=== PATIENT | female | born 1950 | race Caucasian/White ===

== ENCOUNTER 2020-04-05 09:20 | Outpatient (REF) | payer MEDICARE, SELFPAY ==
--- NOTE | 2020-04-05 09:27 | XR_ITS ---
EXAMINATION: XR HAND/WRIST, LEFT CLINICAL INFORMATION: Pain COMPARISON: 01/25/2015 TECHNIQUE: 3 views of the left hand/wrist FINDINGS: There is a ring on the fourth digit. No fracture or dislocation. Mild degenerative changes at the wrist with osteophyte formation at the triscaphe joint and first carpometacarpal joint. The carpal rows are well aligned. The digits are well aligned. Small osteophytes at the fifth digit distal interphalangeal joint. The soft tissues are unremarkable. XR/XR hand wrist LT IMPRESSION: Mild degenerative changes of the wrist and at the fifth distal interphalangeal joint. No acute abnormality.
== END 2020-04-05 09:21 | disposition home or self-care (01) ==
LOC: HO.HMGCX 09:20
PROVIDERS: PCP Internal Medicine; Visit Provider Hospitalist
DX: M25.532 Pain in left wrist (principal)
CPT/HCPCS: 73110; 73130

== ENCOUNTER 2020-04-08 09:11 | Outpatient (REF) | payer MEDICARE, SELFPAY ==
--- NOTE | 2020-04-08 09:11 | XR_ITS ---
EXAMINATION: XR WRIST, LEFT CLINICAL INFORMATION: Pain in left wrist COMPARISON: 01/25/2015 TECHNIQUE: PA, lateral, and oblique views of the left wrist. FINDINGS: The bones are osteopenic. There is no fracture or dislocation. The carpal rows are well aligned. Mild degenerative changes at the triscaphe joint and first carpometacarpal joint with osteophyte formation. Mild soft tissue swelling. XR/XR wrist LT min 3V IMPRESSION: Mild arthritic changes at the radial aspect of the wrist.
== END 2020-04-08 09:12 | disposition home or self-care (01) ==
LOC: HO.HOSX 09:11
PROVIDERS: Visit Provider Orthopaedic Surgery
DX: M25.532 Pain in left wrist (principal); S52.572A Other intraarticular fracture of lower end of left radius, initial encounter for closed fracture; S60.052A Contusion of left little finger without damage to nail, initial encounter; W18.30XA Fall on same level, unspecified, initial encounter; Y93.9 Activity, unspecified; Y92.9 Unspecified place or not applicable; Y99.8 Other external cause status; E78.00 Pure hypercholesterolemia, unspecified
CPT/HCPCS: 25600; 73110; 99202

== ENCOUNTER 2020-04-29 09:34 | Outpatient (REF) | payer MEDICARE, BC, SELFPAY ==
--- NOTE | 2020-04-29 09:35 | XR_ITS ---
EXAMINATION: LEFT FINGER AND LEFT WRIST CLINICAL INFORMATION: Pain left hand COMPARISON: None TECHNIQUE: 3 views left fingers and 3 views left wrist. FINDINGS: LEFT WRIST: There is no visible acute fracture, dislocation or subluxation. The soft tissues are unremarkable. Incidental finding of a subtle lucency along the distal radius likely nutrient foramina. LEFT FIFTH FINGER: There is loss of PIP and DIP joint space with periarticular spurring. There is mild flexion deformity DIP joint. No fracture or dislocation seen.. There is no visible acute. 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 No acute fracture or dislocation. Unremarkable left wrist exam except for a small lucency along the distal radius, ? Nutrient foramina or artifact
--- NOTE | 2020-04-29 11:04 | XR_ITS ---
EXAMINATION: LEFT FINGER AND LEFT WRIST CLINICAL INFORMATION: Pain left hand COMPARISON: None TECHNIQUE: 3 views left fingers and 3 views left wrist. FINDINGS: LEFT WRIST: There is no visible acute fracture, dislocation or subluxation. The soft tissues are unremarkable. Incidental finding of a subtle lucency along the distal radius likely nutrient foramina. LEFT FIFTH FINGER: There is loss of PIP and DIP joint space with periarticular spurring. There is mild flexion deformity DIP joint. No fracture or dislocation seen.. There is no visible acute. XR/XR finger LT min 2V IMPRESSION: Degenerative arthritic changes PIP and DIP joint left fifth digit with mild flexion deformity PIP joint. No acute fracture or dislocation. Unremarkable left wrist exam except for a small lucency along the distal radius, ? Nutrient foramina or artifact
== END 2020-04-29 09:35 | disposition home or self-care (01) ==
LOC: HO.HOSX 09:34
PROVIDERS: Visit Provider Orthopaedic Surgery
DX: S52.502A Unspecified fracture of the lower end of left radius, initial encounter for closed fracture (principal); M79.642 Pain in left hand
CPT/HCPCS: 73110; 73140; 99212

== ENCOUNTER 2020-04-29 13:18 | Outpatient (REF) | payer MEDICARE, BC, SELFPAY ==
[2020-04-29 16:27] LABS: MANUAL DIFF FLAG NO
[2020-04-29 16:32] LABS: Basophils Percent Auto 0.4 % (0-2); Eosinophils Absolute Auto 0.1 X10*3/uL (0.0-0.4); Eosinophils Percent Auto 1.7 % (0-4); Imm Gran Abs Auto 0.02 X10*3/uL (0.00-0.03); Imm Gran Pct Auto 0.3 % (0.0-0.4); Lymphocytes Absolute Auto 2.6 X10*3/uL (1.2-4.9); Lymphocytes Percent Auto 35.2 % (20-40); Mean Corpuscular HGB Conc 32.6 g/dl (31.0-35.0); Mean Corpuscular Hemoglobin 29.8 pg (27.0-33.0); Mean Corpuscular Volume 91.5 fL (80-98); Mean Platelet Volume 9.7 fL (9.4-12.3); Monocytes Absolute Auto 0.5 X10*3/uL (0.1-1.2); Monocytes Percent Auto 6.5 % (2-11); Neutrophils Absolute Auto 4.2 X10*3/uL (2.0-8.3); Neutrophils Percent Auto 55.9 % (45-73); Platelet Count 194 X10*3/uL (160-400); Red Cell Distribution Width 12.4 % (11.0-16.0); White Blood Count 7.5 X10*3/uL (4.8-10.8)
[2020-04-29 16:52] LABS: Alanine Aminotransferase 14 U/L (0-31); Albumin Level 4.4 g/dL (3.5-5.0); Alkaline Phosphatase 93 U/L (39-117); Anion Gap 14 (12-20); Aspartate Amino Transferase 15 U/L (5-31); Bilirubin Total 0.5 mg/dL (0.0-1.0); Blood Urea Nitrogen 15 mg/dL (9-16); Calcium 9.2 mg/dL (8.4-10.2); Carbon Dioxide 27 mmol/L (22-29); Chloride 101 mmol/L (96-108); Cholesterol 194 mg/dL; Estimated Glomerular Filt Rate > 60; Glucose Fasting 92 mg/dL (60-99); HDL Cholesterol 62 mg/dL; LDL Cholesterol Calculated 84 mg/dl; Potassium 4.4 mmol/l (3.3-5.1); Sodium 138 mmol/L (135-145); Total Protein 7.2 g/dL (6.5-8.0); Triglycerides 240 mg/dL
[2020-04-29 17:15] LABS: T4 Thyroxine 5.8 ug/dL (4.5-12.0); Thyroid Stimulating Hormone 2.33 uIU/mL (0.32-4.0); Vitamin D 25-OH Total 68.1 ng/mL (>30)
[2020-04-29 17:25] LABS: Folate 11.9 ng/mL (> or = 4.0); Vitamin B12 956 pg/mL (200-900)
== END 2020-04-29 13:19 | disposition home or self-care (01) ==
LOC: HO.HMGCLDS 13:18
PROVIDERS: PCP Internal Medicine; Visit Provider Internal Medicine
DX: Z00.00 Encounter for general adult medical examination without abnormal findings (principal); E66.9 Obesity, unspecified; E78.00 Pure hypercholesterolemia, unspecified; J45.909 Unspecified asthma, uncomplicated
CPT/HCPCS: 36415; 80053; 80061; 82306; 82607; 82746; 84436; 84443; 85025

== ENCOUNTER → 2020-06-20 10:38 | Outpatient (BNVA) | payer OTHER, SELFPAY | PROVIDERS: PCP Internal Medicine; Visit Provider Internal Medicine | DX: S67.21XA Crushing injury of right hand, initial encounter (principal); S67.194A Crushing injury of right ring finger, initial encounter; W23.1XXA Caught, crushed, jammed, or pinched between stationary objects, initial encounter | CPT/HCPCS: 73130; 99203 ==

== ENCOUNTER → 2020-06-24 11:02 | Outpatient (BNVA) | payer OTHER, SELFPAY | PROVIDERS: PCP Internal Medicine; Visit Provider Physician Assistant | DX: S67.194D Crushing injury of right ring finger, subsequent encounter (principal); X58.XXXD Exposure to other specified factors, subsequent encounter | CPT/HCPCS: 99213 ==

== ENCOUNTER 2020-07-04 14:34 | Outpatient (REF) | payer MEDICARE, SELFPAY ==
[2020-07-04 16:49] LABS: Alanine Aminotransferase 16 U/L (0-31); Albumin Level 4.4 g/dL (3.5-5.0); Alkaline Phosphatase 82 U/L (39-117); Anion Gap 14 (12-20); Aspartate Amino Transferase 24 U/L (5-31); Bilirubin Total 0.4 mg/dL (0.0-1.0); Blood Urea Nitrogen 20 mg/dL (9-16); Calcium 9.5 mg/dL (8.4-10.2); Carbon Dioxide 29 mmol/L (22-29); Chloride 100 mmol/L (96-108); Cholesterol 166 mg/dL; Estimated Glomerular Filt Rate > 60; Glucose Random 141 mg/dL (60-115); HDL Cholesterol 67 mg/dL; LDL Cholesterol Calculated 54 mg/dl; Potassium 4.1 mmol/L (3.3-5.1); Sodium 139 mmol/L (135-145); Total Protein 7.2 g/dL (6.5-8.0); Triglycerides 229 mg/dL
== END 2020-07-04 14:35 | disposition home or self-care (01) ==
LOC: HO.HMGCLDS 14:34
PROVIDERS: PCP Internal Medicine; Visit Provider Internal Medicine
DX: E78.1 Pure hyperglyceridemia (principal); E78.00 Pure hypercholesterolemia, unspecified
CPT/HCPCS: 36415; 80053; 80061

== ENCOUNTER 2020-07-19 13:27 | Outpatient (REF) | payer MEDICARE, SELFPAY ==
--- NOTE | ~2020-07-19 | XR_ITS ---
EXAMINATION: XR CHEST CLINICAL INFORMATION: Covid 19 COMPARISON: 02/28/2016 TECHNIQUE: 2 views of the chest were obtained. FINDINGS: Normal cardiac and mediastinal silhouette. There is a prominent airspace opacities along the peripheral aspect of the left hemithorax. There is patchy opacities in the right hemithorax, including the peripheral aspect and the right lower lung. Findings are suspicious for infectious or inflammatory process. No effusion, edema or pneumothorax. No acute osseous abnormality. XR/XR chest 2V IMPRESSION: Airspace disease in bilateral hemithoraces, more prominent in the left hemithorax. Findings are suspicious for infectious or inflammatory process, correlating the clinical history of Covid disease.
== END 2020-07-19 13:28 | disposition home or self-care (01) ==
LOC: HO.HMGCX 13:27
PROVIDERS: PCP Internal Medicine; Visit Provider Internal Medicine
DX: U07.1 COVID-19 (principal)
CPT/HCPCS: 71046

== ENCOUNTER 2020-08-02 14:59 | Outpatient (REF) | payer MEDICARE, SELFPAY ==
--- NOTE | ~2020-08-02 | XR_ITS ---
EXAMINATION: XR SINUSES CLINICAL INFORMATION: Nasal congestion. COMPARISON: None TECHNIQUE: 3 views of the sinuses were obtained. FINDINGS: Paranasal sinuses appear clear without air-fluid levels. No fractures are identified. No radiodense foreign bodies. XR/XR sinus <3V IMPRESSION: Unremarkable sinus exam.
== END 2020-08-02 15:00 | disposition home or self-care (01) ==
LOC: HO.HMGCX 14:59
PROVIDERS: PCP Internal Medicine; Visit Provider Internal Medicine
DX: R09.81 Nasal congestion (principal)
CPT/HCPCS: 70210

== ENCOUNTER → 2020-08-29 14:01 | Outpatient (REF) | payer MEDICARE, SELFPAY | LOC: HO.SL 14:01 | PROVIDERS: PCP Internal Medicine; Visit Provider Internal Medicine | DX: G47.10 Hypersomnia, unspecified (principal) | CPT/HCPCS: 95806 ==

== ENCOUNTER 2020-11-16 10:35 | Outpatient (REF) | payer MEDICARE, SELFPAY ==
[2020-11-16 11:19] LABS: MANUAL DIFF FLAG NO
[2020-11-16 11:26] LABS: Basophils Percent Auto 0.5 % (0-2); Eosinophils Absolute Auto 0.1 X10*3/uL (0.0-0.4); Eosinophils Percent Auto 1.8 % (0-4); Hematocrit 42.8 % (37-47); Hemoglobin 14.1 g/dl (12.0-16.0); Imm Gran Abs Auto 0.04 X10*3/uL (0.00-0.03); Imm Gran Pct Auto 0.6 % (0.0-0.4); Lymphocytes Absolute Auto 2.6 X10*3/uL (1.2-4.9); Lymphocytes Percent Auto 39.6 % (20-40); Mean Corpuscular HGB Conc 32.9 g/dl (31.0-35.0); Mean Corpuscular Volume 91.1 fL (80-98); Mean Platelet Volume 9.2 fL (9.4-12.3); Monocytes Absolute Auto 0.5 X10*3/uL (0.1-1.2); Monocytes Percent Auto 7.2 % (2-11); Neutrophils Absolute Auto 3.3 X10*3/uL (2.0-8.3); Neutrophils Percent Auto 50.3 % (45-73); Platelet Count 201 X10*3/uL (160-400); Red Cell Distribution Width 12.3 % (11.0-16.0); White Blood Count 6.5 X10*3/uL (4.8-10.8)
[2020-11-16 11:49] LABS: Alanine Aminotransferase 44 U/L (0-31); Albumin Level 4.4 g/dL (3.5-5.0); Alkaline Phosphatase 73 U/L (39-117); Anion Gap 12 (12-20); Aspartate Amino Transferase 40 U/L (5-31); Bilirubin Total 0.4 mg/dL (0.0-1.0); Blood Urea Nitrogen 23 mg/dL (9-16); Calcium 9.5 mg/dL (8.4-10.2); Carbon Dioxide 29 mmol/L (22-29); Chloride 101 mmol/L (96-108); Cholesterol 163 mg/dL; Estimated Glomerular Filt Rate > 60; Glucose Random 95 mg/dL (60-115); HDL Cholesterol 60 mg/dL; LDL Cholesterol Calculated 76 mg/dl; Potassium 4.5 mmol/L (3.3-5.1); Sodium 137 mmol/L (135-145); Total Protein 7.1 g/dL (6.5-8.0); Triglycerides 139 mg/dL
== END 2020-11-16 10:36 | disposition home or self-care (01) ==
LOC: HO.HMGCLDS 10:35
PROVIDERS: PCP Internal Medicine; Visit Provider Internal Medicine
DX: E78.00 Pure hypercholesterolemia, unspecified (principal)
CPT/HCPCS: 36415; 80053; 80061; 85025

== ENCOUNTER 2021-07-03 10:25 | Outpatient (REF) | payer MEDICARE, SELFPAY ==
[2021-07-03 11:16] LABS: MANUAL DIFF FLAG NO
[2021-07-03 11:20] LABS: Basophils Percent Auto 0.3 % (0-2); Eosinophils Absolute Auto 0.1 X10*3/uL (0.0-0.4); Eosinophils Percent Auto 1.7 % (0-4); Hematocrit 43.4 % (37.0-47.0); Hemoglobin 14.2 g/dl (12.0-16.0); Imm Gran Abs Auto 0.02 X10*3/uL (0.00-0.03); Imm Gran Pct Auto 0.3 % (0.0-0.4); Lymphocytes Absolute Auto 2.1 X10*3/uL (1.2-4.9); Lymphocytes Percent Auto 32.8 % (20-40); Mean Corpuscular HGB Conc 32.7 g/dl (31.0-35.0); Mean Corpuscular Volume 91.6 fL (80.0-98.0); Mean Platelet Volume 9.5 fL (9.4-12.3); Monocytes Absolute Auto 0.5 X10*3/uL (0.1-1.2); Monocytes Percent Auto 7.8 % (2-11); Neutrophils Absolute Auto 3.7 x10*3/uL (2.0-8.3); Neutrophils Percent Auto 57.1 % (45-73); Platelet Count 211 X10*3/uL (160-400); Red Blood Count 4.74 X10*6/uL (4.20-5.50); Red Cell Distribution Width 12.6 % (11.0-16.0); White Blood Count 6.4 X10*3/uL (4.8-10.8)
[2021-07-03 11:44] LABS: Alanine Aminotransferase 33 U/L (0-31); Albumin Level 4.3 g/dL (3.5-5.0); Alkaline Phosphatase 75 U/L (39-117); Anion Gap 12 (12-20); Aspartate Amino Transferase 31 U/L (5-31); Bilirubin Direct 0.3 mg/dL (0.0-0.5); Bilirubin Total 0.6 mg/dL (0.0-1.0); Blood Urea Nitrogen 17 mg/dL (9-16); Calcium 9.6 mg/dL (8.4-10.2); Carbon Dioxide 28 mmol/L (22-29); Chloride 102 mmol/L (96-108); Cholesterol 164 mg/dL; Estimated Glomerular Filt Rate > 60; Glucose Fasting 103 mg/dL (60-99); HDL Cholesterol 62 mg/dL; LDL Cholesterol Calculated 78 mg/dl; Potassium 4.4 mmol/L (3.3-5.1); Sodium 138 mmol/L (135-145); Total Protein 7.1 g/dL (6.5-8.0); Triglycerides 120 mg/dL
== END 2021-07-03 10:26 | disposition home or self-care (01) ==
LOC: HO.HMGCLDS 10:25
PROVIDERS: Visit Provider Nurse Practitioner Family
DX: E66.9 Obesity, unspecified (principal); E78.00 Pure hypercholesterolemia, unspecified; E78.1 Pure hyperglyceridemia; R79.89 Other specified abnormal findings of blood chemistry; I10 Essential (primary) hypertension
CPT/HCPCS: 36415; 80053; 80061; 80076; 82248; 85025

== ENCOUNTER 2021-10-02 10:53 | Outpatient (REF) | payer MEDICARE, SELFPAY ==
[2021-10-02 14:15] LABS: Alanine Aminotransferase 23 U/L (0-31); Albumin Level 4.3 g/dL (3.5-5.0); Alkaline Phosphatase 101 U/L (39-117); Anion Gap 14 (12-20); Aspartate Amino Transferase 20 U/L (5-31); Bilirubin Total 0.6 mg/dL (0.0-1.0); Blood Urea Nitrogen 17 mg/dL (9-16); Calcium 9.9 mg/dL (8.4-10.2); Carbon Dioxide 29 mmol/L (22-29); Chloride 101 mmol/L (96-108); Cholesterol 187 mg/dL; Estimated Glomerular Filt Rate > 60; Glucose Fasting 100 mg/dL (60-99); HDL Cholesterol 64 mg/dL; LDL Cholesterol Calculated 76 mg/dl; Potassium 4.8 mmol/L (3.3-5.1); Sodium 139 mmol/L (135-145); Total Protein 7.4 g/dL (6.5-8.0); Triglycerides 237 mg/dL
[2021-10-02 14:27] LABS: Estimated Average Glucose 128 mg/dL; Hemoglobin A1c % 6.1 %
== END 2021-10-02 10:54 | disposition home or self-care (01) ==
LOC: HO.HMGCLDS 10:53
PROVIDERS: PCP Internal Medicine; Visit Provider Nurse Practitioner Family
DX: E66.9 Obesity, unspecified (principal); E78.00 Pure hypercholesterolemia, unspecified; E78.1 Pure hyperglyceridemia; R79.89 Other specified abnormal findings of blood chemistry
CPT/HCPCS: 36415; 80053; 80061; 82947; 83036

== ENCOUNTER 2022-04-10 08:24 | Outpatient (REF) | payer MEDICARE, SELFPAY ==
--- NOTE | ~2022-04-10 | MM_ITS ---
EXAMINATION: BONE DENSITOMETRY CLINICAL INDICATION: Age-related osteoporosis without current pathological fracture. COMPARISON: Baseline BD dated 02/08/2020. TECHNIQUE: Using a [employer] DXA System (software version: 13.1) manufactured by [employer], dual-energy x-ray absorptiometry was performed of the lumbar spine and left hip. The images are of good technical quality. Summary results are attached. FINDINGS: AP SPINE L1-L4: Current: BMD 0.947 g/cm2, Z-score -0.8, T-score -1.9, osteopenia, 1.3% decrease from baseline (<5% change is not significant). Baseline: BMD 0.959 g/cm2. LEFT FEMUR, NECK: Current: BMD 0.822 g/cm2, Z-score -0.2, T-score -1.6, osteopenia. Baseline: BMD 0.825 g/cm2. LEFT FEMUR, TOTAL: Current: BMD 0.875 g/cm2, Z-score 0.1, T-score -1.1, osteopenia, 3.1% decrease from baseline (<5% change is not significant). Baseline: BMD 0.903 g/cm2. IDENTIFIED RISK FACTORS: Menopause, bilateral oophorectomy, history of fracture (adult). HISTORY OF FRACTURE: Wrist. MEDICATIONS: Vitamin D. MM/XR DEXA axial skeleton IMPRESSION: 1. DIAGNOSIS: Osteopenia based on the lowest T-score value of -1.9 in the lumbar spine applying World Health Organization criteria. 2. 10-YEAR FRACTURE RISK PREDICTION, FRAX: Major osteoporotic fracture (clinical spine, forearm, hip or shoulder) 15.7%. Hip fracture 2.3%. 3. Treatment Recommendations: NOF guidelines recommend consideration for treatment in postmenopausal women and men age 50 and older presenting with the following: -A hip or vertebral (clinical or morphometric) fracture. -T-score less than or equal to -2.5 at the femoral neck or spine after appropriate evaluation to exclude secondary causes. -Low bone mass at the hip or spine and a 10-year fracture probability by FRAX of greater than or equal to 3% for hip fracture or greater than or equal to 20% for major osteoporotic fracture based on the [place] adapted WHO algorithm. 4. Other Recommendations: All treatment decisions require clinical judgment and consideration of individual patient factors, including patient preferences, comorbidities, previous drug use, risk factors not captured in the FRAX model (e.g. frailty, falls, vitamin D deficiency, increased bone turnover, interval significant decline in bone density) and possible under or overestimation of fracture risk by FRAX. Additional medical evaluation for secondary cause of low bone mineral density may be appropriate. FUTURE SCAN RECOMMENDATION: People with diagnosed cases of osteoporosis or at high risk for fracture should have regular bone mineral density tests. For patients eligible for Medicare, routine testing is allowed once every 2 years. The testing frequency can be increased to one year for patients who have rapidly progressing disease, those who are receiving or discontinuing medical therapy to restore bone mass, or have additional risk factors.
--- NOTE | ~2022-04-10 | XR_ITS ---
EXAMINATION: XR hip RT min 2V CLINICAL INFORMATION: Reason for Exam M25.551 - Pain in right hip COMPARISON: None TECHNIQUE: Two views of the hip. FINDINGS: No acute fracture or dislocation. Mild degenerative changes of the hip with collar osteophytes. Surgical clips overlie the hip. XR/XR hip RT min 2V IMPRESSION: Mild degenerative changes of the hip.
[2022-04-10 11:36] LABS: MANUAL DIFF FLAG NO
[2022-04-10 11:47] LABS: Basophils Percent Auto 0.4 % (0-2); Eosinophils Absolute Auto 0.1 X10*3/uL (0.0-0.4); Eosinophils Percent Auto 1.6 % (0-4); Hematocrit 44.3 % (37.0-47.0); Hemoglobin 14.5 g/dl (12.0-16.0); Imm Gran Abs Auto 0.01 X10*3/uL (0.00-0.03); Imm Gran Pct Auto 0.2 % (0.0-0.4); Lymphocytes Absolute Auto 2.1 X10*3/uL (1.2-4.9); Mean Corpuscular HGB Conc 32.7 g/dl (31.0-35.0); Mean Corpuscular Hemoglobin 30.2 pg (27.0-33.0); Mean Corpuscular Volume 92.3 fL (80.0-98.0); Mean Platelet Volume 9.5 fL (9.4-12.3); Monocytes Absolute Auto 0.5 X10*3/uL (0.1-1.2); Monocytes Percent Auto 8.7 % (2-11); Neutrophils Absolute Auto 2.9 x10*3/uL (2.0-8.3); Neutrophils Percent Auto 52.1 % (45-73); Platelet Count 170 X10*3/uL (160-400); Red Cell Distribution Width 12.6 % (11.0-16.0); White Blood Count 5.5 X10*3/uL (4.8-10.8)
[2022-04-10 11:51] LABS: Appearance Urine Clear; Color Urine Yellow; Glucose Urine UA Negative (Negative); Leukocyte Esterase Urine Negative (Negative); Nitrite Urine Negative (Negative); Urine Blood Negative (Negative); Urine Ketones Negative (Negative); Urine Protein Negative (Neg-Trace)
[2022-04-10 11:55] LABS: Bacteria Urine None Seen (None Seen); Hyaline Casts Urine 0-2 /LPF (0-2); RBC Urine 0-2 /HPF (0-2); Squamous Epithelial Cell Urine 0-2 /HPF (0-2); WBC Urine 0-5 /HPF (0-5)
[2022-04-10 12:27] LABS: Alanine Aminotransferase 17 U/L (0-31); Alkaline Phosphatase 107 U/L (39-117); Anion Gap 16 (12-20); Aspartate Amino Transferase 19 U/L (5-31); Bilirubin Total 0.4 mg/dL (0.0-1.0); Blood Urea Nitrogen 15 mg/dL (9-16); Carbon Dioxide 26 mmol/L (22-29); Chloride 102 mmol/L (96-108); Cholesterol 181 mg/dL; Estimated Glomerular Filt Rate > 60; Free T4 (Free Thyroxine) 0.89 ng/dL (0.71-1.85); Glucose Random 108 mg/dL (60-115); HDL Cholesterol 61 mg/dL; LDL Cholesterol Calculated 85 mg/dl; Potassium 4.7 mmol/L (3.3-5.1); Sodium 139 mmol/L (135-145); Thyroid Stimulating Hormone 4.16 uIU/mL (0.32-4.0); Triglycerides 179 mg/dL
[2022-04-10 13:48] LABS: Folate 13.1 ng/mL (> or = 4.0); Vitamin B12 1223 pg/mL (200-900)
[2022-04-10 13:59] LABS: Albumin Level 4.2 g/dL (3.5-5.0); Vitamin D 25-OH Total 66.3 ng/mL (>30)
== END 2022-04-10 08:25 | disposition home or self-care (01) ==
LOC: HO.MAMMO 08:24
PROVIDERS: PCP Internal Medicine; Visit Provider Internal Medicine
DX: Z13.820 Encounter for screening for osteoporosis (principal); Z78.0 Asymptomatic menopausal state; M81.0 Age-related osteoporosis without current pathological fracture; E78.00 Pure hypercholesterolemia, unspecified; M25.551 Pain in right hip
CPT/HCPCS: 36415; 73502; 77080; 80053; 80061; 81001; 82306; 82607; 82746; 84439; 84443; 85025

== ENCOUNTER 2022-06-28 09:20 | Emergency (ER) | payer MEDICARE, SELFPAY ==
[2022-06-28 09:22] VITALS: BP 171/90; PULSE 65; RESP 16; TEMP 36.9; O2SAT 98; BMI 30.9
--- NOTE | 2022-06-28 09:36 | ED.GENADULT ---
HPI - General Adult General Chief complaint: General Medical Stated complaint: OD Time Seen by Provider: 06/28/22 09:35 Source: patient Mode of arrival: ambulatory Limitations: no limitations History of Present Illness HPI narrative: 72 yo female with history of recently diagnosed COVID-19, started on Paxlovid by her PCP who presents to the ER for evaluation after taking an extra dose of the Paxlovid yesterday. She noticed this morning when she went to take her morning dose of the medication. She called her PCP with reports of dry mouth and was told to come to the ER for further evaluation. She reports some nausea and anxiety. She has been drinking water but reports some diarrhea the last couple of days. No abdominal pain, chest pain, difficulty breathing. MD complaint: Paxlovid overdose Onset (ago): day(s) Location: abdomen Radiation: non-radiation Severity: mild Pain Consistency: intermittent Relieving factors: other (drinking) Exacerbating factors: none Associated symptoms: cough, loss of appetite, malaise, nausea/vomiting and weakness Treatments prior to arrival: none Related Data Home Medications Medication Instructions Recorded Confirmed cholecalciferol (vitamin D3) 125 125 mcg PO DAILY 07/29/20 04/06/22 mcg (5,000 unit) capsule cyanocobalamin (vitamin B-12) 1,000 mcg PO DAILY 07/29/20 04/06/22 1,000 mcg capsule Previous Rx's Medication Instructions Recorded fexofenadine 180 mg tablet 180 mg PO DAILY #90 tabs 08/20/20 (Marilu Allergy) albuterol sulfate 90 mcg/actuation 2 puff inhalation Q4-6H #8.5 grams 06/25/22 aerosol inhaler (ProAir HFA) fluticasone propionate 50 2 spray intranasal DAILY #16 mL 06/25/22 mcg/actuation nasal spray,suspension nirmatrelvir 300 mg (150 mg See Rx Instructions PO .COMPLEX 06/25/22 x2)-ritonavir 100 mg tablet,dose #30 ea pack(EUA) (Paxlovid) simvastatin 20 mg tablet 20 mg PO DAILY #90 tabs 06/25/22 Allergies Allergy/AdvReac Type Severity Reaction Status Date / Time Penicillins [PENICILLINS] Allergy Unknown RASH,HIVES, Verified 06/28/22 09:21 SWELLING latex Allergy Itching Verified 06/28/22 09:21 Review of Systems Review of Systems: Yes all other systems are reviewed and are negative [facility] Past Medical History Medical History Asthma History of melanoma Hypercholesteremia Lumbar degenerative disc disease Obesity (BMI 30-39.9) Osteopenia Peripheral neuropathy Surgical History History of bilateral oophorectomy History of melanoma excision (~2014) Family History Family History Father Lung cancer Mother Lung cancer Social History Social History (Updated 04/06/22 @ 10:41 by Sp Almanza MD) Housing: House Alcohol intake: current Alcohol intake frequency: holidays/special occasions only Patient Tobacco Use Status: Former Tobacco user Tobacco use type: Cigarette Years Smoked: 2001 smoked for 10 years e-Cigarette/Vaping Use: Never Used Second Hand Smoke Exposure: Yes Advance Directives: No Advance Directives Information Provided: Yes service: No Current occupational status: retired Current occupation: [employer] - Left Handed Cognitive needs: No Hearing needs: No Vision needs: Yes (Glasses) Physical Exam ED Vital Signs: Vital Signs - 24 hr 06/28/22 09:22 Temperature 98.4 F Pulse Rate 65 Respiratory Rate 16 Blood Pressure 171/90 H Pulse Oximetry 98 Oxygen Delivery Method Room Air BMI result Body Mass Index 30.9 Appearance: Alert. Oriented X3. Anxious Eyes: Pupils equal, round and reactive to light. ENT: Pharynx normal. Slightly dry mucus membranes, tolerating PO Neck: Normal inspection. Neck supple. CVS: Normal heart rate and rhythm. Pulses normal. Respiratory: No respiratory distress. Breath sounds normal. Abdomen: Soft and nontender. +BS x4 Skin: Skin warm and dry. Normal skin color. Normal skin turgor. No rashes. Extremities: No lower extremity edema. No calf swelling or tenderness Neuro: Oriented X 3. No motor deficit. No sensory deficit. Nonfocal Course Course Course Narrative: 72 yo female with recently diagnosed COVID, on Paxlovid presents to the ER for evaluation after she took an extra dose of Paxlovid yesterday. c/o dry mouth and anxiety. Has had a few episodes of non-bloody diarrhea. VSS and physical exam unremarkable. Will check basic labs and LFTs as Paxlovid can cause hepatotoxicity. Reevaluation(s) Reevaluation #1: labs unremarkable. stable for d/c home. she will f/u with Dr. Almanza. Medical Decision Making Differential Diagnosis Differential Diagnoses: The differential diagnosis associated with the presentation includes dehydration, hepatotixicity 2/2 paxlovid, COVID Lab Data [facility] Lab Attestation statement: I reviewed the patient's lab results. unremarkable 06/28/22 09:36 06/28/22 09:36 Labs: Lab Results 06/28/22 06/28/22 06/28/22 Range/Units 09:36 09:36 09:36 WBC 5.2 (4.8-10.8) X10*3/uL RBC 4.78 (4.20-5.50) X10*6/uL Hgb 14.3 (12.0-16.0) g/dl Hct 43.2 (37.0-47.0) % MCV 90.4 (80.0-98.0) fL MCH 29.9 (27.0-33.0) pg MCHC 33.1 (31.0-35.0) g/dl RDW 12.3 (11.0-16.0) % Plt Count 146 L (160-400) X10*3/uL MPV 9.3 L (9.4-12.3) fL Immature Gran % (Auto) 0.2 (0.0-0.4) % Neut % (Auto) 43.1 L (45-73) % Lymph % (Auto) 45.0 H (20-40) % Morris % (Auto) 9.4 (2-11) % Eos % (Auto) 2.1 (0-4) % Baso % (Auto) 0.2 (0-2) % Lymph # (Auto) 2.4 (1.2-4.9) X10*3/uL Morris # (Auto) 0.5 (0.1-1.2) X10*3/uL Eos # (Auto) 0.1 (0.0-0.4) X10*3/uL Baso # (Auto) 0.0 (0.0-0.2) X10*3/uL Abs Immat Gran (auto) 0.01 (0.00-0.03) X10*3/uL Absolute Neuts (auto) 2.3 (2.0-8.3) x10*3/uL Absolute Nucleated RBC 0.000 (0.0-0.012) X10*3/uL Nucleated RBC % (auto) 0.0 (0.0-0.2) /100WBC Sodium 134 L (135-145) mmol/L Potassium 4.2 (3.3-5.1) mmol/L Chloride 99 (96-108) mmol/L Carbon Dioxide 22 (22-29) mmol/L Anion Gap 17 (12-20) BUN 14 (9-16) mg/dL Creatinine 0.72 (0.5-1.4) mg/dL Estim Creat Clear Calc 74.0 Estimated GFR > 60 Random Glucose 104 (60-115) mg/dL Calcium 8.9 (8.4-10.2) mg/dL Total Bilirubin 0.8 (0.0-1.0) mg/dL Direct Bilirubin 0.2 (0.0-0.5) mg/dL AST 18 (5-31) U/L ALT 15 (0-31) U/L Alkaline Phosphatase 83 (39-117) U/L Total Protein 6.6 (6.5-8.0) g/dL Albumin 4.0 (3.5-5.0) g/dL COVID-19 (DESTINY) Positive A (Negative) COVID-19 Clin Com See Note Independent Historian Clinical information obtained from an independent historian. History obtained from or confirmed by: Other External Record Review External record reviewed: Outpatient record, Prior outpatient labs and Prior outpatient radiology Prescription Management I considered prescription management with: Antiviral advised against given her adverse reactions, only with mild resp symptoms - risk outweighs the benefit in this case Critical Care Time Critical Care Time Critical Care Time: No Discharge Plan Discharge Clinical Impression: COVID-19 Patient Disposition: Home, Self-Care Instructions: Covid-19 Viral Syndrome and Novel Coronavirus (ED) Hey/Ath Additional Instructions: Your lab work today was unremarkable. Given your nausea, diarrhea, high blood pressure and generally feeling unwell would recommend STOPPING Paxlovid. These are all adverse reactions of the medication. Follow up with Dr. Po for further recommendations If you develop new or worsening symptoms call 911 or come back to the ER for further evaluation. Prescriptions: No Action fexofenadine [Marilu Allergy] 180 mg tablet 180 mg PO DAILY Qty: 90 3RF simvastatin 20 mg tablet 20 mg PO DAILY Qty: 90 2RF fluticasone propionate 50 mcg/actuation spray,suspension 2 spray intranasal DAILY Qty: 16 2RF albuterol sulfate [ProAir HFA] 90 mcg/actuation HFA aerosol inhaler 2 puff inhalation Q4-6H Qty: 8.5 0RF Paxlovid (EUA) 300 mg (150 mg x 2)-100 mg tablets,dose pack See Rx Instructions PO .COMPLEX Qty: 30 0RF Rx Instructions: take TWO 150 mg tablets of nirmatrelvir with ONE 100 mg tablet of ritonavir twice daily for 5 days PO cholecalciferol (vitamin D3) 125 mcg (5,000 unit) capsule 125 mcg PO DAILY cyanocobalamin (vitamin B-12) 1,000 mcg capsule 1,000 mcg PO DAILY
[2022-06-28 09:40] LABS: MANUAL DIFF FLAG NO
[2022-06-28 09:45] LABS: Basophils Percent Auto 0.2 % (0-2); Eosinophils Absolute Auto 0.1 X10*3/uL (0.0-0.4); Eosinophils Percent Auto 2.1 % (0-4); Hematocrit 43.2 % (37.0-47.0); Hemoglobin 14.3 g/dl (12.0-16.0); Imm Gran Abs Auto 0.01 X10*3/uL (0.00-0.03); Imm Gran Pct Auto 0.2 % (0.0-0.4); Lymphocytes Absolute Auto 2.4 X10*3/uL (1.2-4.9); Mean Corpuscular HGB Conc 33.1 g/dl (31.0-35.0); Mean Corpuscular Hemoglobin 29.9 pg (27.0-33.0); Mean Corpuscular Volume 90.4 fL (80.0-98.0); Mean Platelet Volume 9.3 fL (9.4-12.3); Monocytes Absolute Auto 0.5 X10*3/uL (0.1-1.2); Monocytes Percent Auto 9.4 % (2-11); Neutrophils Absolute Auto 2.3 x10*3/uL (2.0-8.3); Neutrophils Percent Auto 43.1 % (45-73); Platelet Count 146 X10*3/uL (160-400); Red Blood Count 4.78 X10*6/uL (4.20-5.50); Red Cell Distribution Width 12.3 % (11.0-16.0); White Blood Count 5.2 X10*3/uL (4.8-10.8)
[2022-06-28 09:50] LABS: COVID-19 Test Positive (Negative); IDNOW Serial# 16C4AD1C
[2022-06-28 10:09] LABS: Alanine Aminotransferase 15 U/L (0-31); Alkaline Phosphatase 83 U/L (39-117); Anion Gap 17 (12-20); Aspartate Amino Transferase 18 U/L (5-31); Bilirubin Direct 0.2 mg/dL (0.0-0.5); Bilirubin Total 0.8 mg/dL (0.0-1.0); Blood Urea Nitrogen 14 mg/dL (9-16); Calcium 8.9 mg/dL (8.4-10.2); Carbon Dioxide 22 mmol/L (22-29); Chloride 99 mmol/L (96-108); Estimated Glomerular Filt Rate > 60; Glucose Random 104 mg/dL (60-115); Potassium 4.2 mmol/L (3.3-5.1); Sodium 134 mmol/L (135-145); Total Protein 6.6 g/dL (6.5-8.0)
== END 2022-06-28 10:34 | disposition home or self-care (01) ==
PROVIDERS: Emergency Provider Student in an Organized Health Care Education/Training Program; PCP Internal Medicine
DX: U07.1 COVID-19 (principal); T43.221A Poisoning by selective serotonin reuptake inhibitors, accidental (unintentional), initial encounter; R53.83 Other fatigue; R05.9 Cough, unspecified; Z79.899 Other long term (current) drug therapy
CPT/HCPCS: 80048; 80076; 85025; 87635; 99282

== ENCOUNTER 2022-07-13 10:03 | Outpatient (REF) | payer MEDICARE, SELFPAY ==
[2022-07-13 11:56] LABS: Free T4 (Free Thyroxine) 0.81 ng/dL (0.71-1.85); Thyroid Stimulating Hormone 2.35 uIU/mL (0.32-4.0)
== END 2022-07-13 10:04 | disposition home or self-care (01) ==
LOC: HO.HMGCLDS 10:03
PROVIDERS: PCP Internal Medicine; Visit Provider Internal Medicine
DX: R79.89 Other specified abnormal findings of blood chemistry (principal)
CPT/HCPCS: 36415; 84439; 84443

== ENCOUNTER 2022-08-05 10:58 | Outpatient (REF) | payer MEDICARE, SELFPAY ==
[2022-08-05 14:20] LABS: Alanine Aminotransferase 14 U/L (0-31); Albumin Level 4.3 g/dL (3.5-5.0); Alkaline Phosphatase 97 U/L (39-117); Anion Gap 16 (12-20); Aspartate Amino Transferase 16 U/L (5-31); Bilirubin Total 0.7 mg/dL (0.0-1.0); Blood Urea Nitrogen 18 mg/dL (9-16); Calcium 9.2 mg/dL (8.4-10.2); Carbon Dioxide 27 mmol/L (22-29); Chloride 102 mmol/L (96-108); Estimated Glomerular Filt Rate > 60; Glucose Random 98 mg/dL (60-115); Potassium 4.6 mmol/L (3.3-5.1); Sodium 140 mmol/L (135-145)
== END 2022-08-05 10:59 | disposition home or self-care (01) ==
LOC: HO.HMGCLDS 10:58
PROVIDERS: PCP Internal Medicine; Visit Provider Internal Medicine
DX: U07.1 COVID-19 (principal)
CPT/HCPCS: 36415; 80053

== ENCOUNTER 2022-10-31 11:11 | Outpatient (REF) | payer MEDICARE, SELFPAY ==
[2022-11-03 10:48] LABS: Immunoglobulin E 9 kU/L (<OR=114)
== END 2022-10-31 11:12 | disposition home or self-care (01) ==
LOC: HO.HMGCLDS 11:11
PROVIDERS: Visit Provider Physician Assistant
DX: T78.1XXD Other adverse food reactions, not elsewhere classified, subsequent encounter (principal)
CPT/HCPCS: 36415; 82785; 83520

== ENCOUNTER 2022-11-02 14:55 | Emergency (ER) | payer MEDICARE, SELFPAY ==
--- NOTE | ~2022-11-02 | XR_ITS ---
EXAMINATION: XR SHOULDER, RIGHT CLINICAL INFORMATION: Pain COMPARISON: Previous x-ray from 2012 TECHNIQUE: AP external rotation, Grashey, scapular Y, and axillary views of the right shoulder. FINDINGS: Bone alignment is normal. No fracture or dislocation. There is arthritis at the glenohumeral and acromioclavicular joint. There is soft tissue calcification adjacent to the greater tuberosity suggestive of calcific tendinitis or bursitis. Findings are new or increased from 2012. XR/XR shoulder RT min 2V IMPRESSION: Degenerative changes.
--- NOTE | ~2022-11-02 | US_ITS ---
EXAMINATION: US VENOUS ULTRASOUND WITH DOPPLER LOWER EXTREMITY, RIGHT CLINICAL INFORMATION: Swelling COMPARISON: None available. TECHNIQUE: Ultrasound of the deep veins is performed from the hip to the calf with compression sonography and color and pulse Doppler assessment. Spectral analysis with color-flow imaging is performed. FINDINGS: There is normal venous compression and respiratory variation and augmented flow. The visualized common femoral vein, superficial femoral vein, profunda femoral vein, popliteal vein, and the trifurcation region shows no evidence of deep venous thrombosis. There is no significant popliteal fossa cyst. If the patient's symptoms persist, followup ultrasound in 5 days 7 days might be of value to exclude proximal propagation from a non-visualized calf vein. US/US venous duplex LE RT IMPRESSION: No DVT demonstrated in the right lower extremity.
--- NOTE | ~2022-11-02 | XR_ITS ---
EXAMINATION: XR ANKLE, RIGHT CLINICAL INFORMATION: Pain and swelling COMPARISON: Right lower leg x-ray January 2018 and right foot x-ray 2018 TECHNIQUE: AP, lateral, and mortise views of the right ankle. FINDINGS: Bone alignment is normal. No acute fracture or dislocation. Old trauma versus accessory ossification of the lateral malleolus unchanged from previous exams. Normal ankle mortise. Lateral soft tissue swelling. Small calcaneal spurs. XR/XR ankle RT min 3V IMPRESSION: No acute fracture or dislocation. Lateral soft tissue swelling. Small calcaneal spurs.
[2022-11-02 15:19] VITALS: BP 153/85; PULSE 79; RESP 16; TEMP 36.3; O2SAT 95; BMI 31.8
--- NOTE | 2022-11-02 15:21 | ED_ITS ---
HPI - General Adult General Chief complaint: General Medical Stated complaint: R ankle swelling no inj/R shoulder pain Time Seen by Provider: 11/02/22 15:59 Source: patient Mode of arrival: ambulatory Limitations: no limitations History of Present Illness HPI narrative: This is a 72-year-old female history of hyperlipidemia, depression, obesity, presenting to the emergency department for multiple complaints. Patient reports she is having atraumatic right ankle pain and swelling, with intermittent aching sensation. Also reporting she is having right-sided shoulder pain atraumatic in nature that radiates to right armpit/ arm, she states she has been doing more yd work than usual and has been very active in she is unsure if this is contributing to pain. Patient denies chest pain, shortness of breath, fevers, chills, nausea, vomiting, blunt trauma, headache, vision changes, dizziness, numbness and tingling. Related Data Home Medications Medication Instructions Recorded Confirmed cholecalciferol (vitamin D3) 125 125 mcg PO DAILY 07/29/20 08/07/22 mcg (5,000 unit) capsule cyanocobalamin (vitamin B-12) 1,000 mcg PO DAILY 07/29/20 08/07/22 1,000 mcg capsule fexofenadine 30 mg/5 mL oral 60 mg PO BID 08/07/22 08/07/22 suspension ([facility]) Previous Rx's Medication Instructions Recorded fexofenadine 180 mg tablet 180 mg PO DAILY #90 tabs 08/20/20 ([facility] Allergy) albuterol sulfate 90 mcg/actuation 2 puff inhalation Q4-6H #8.5 grams 06/25/22 aerosol inhaler (ProAir HFA) fluticasone propionate 50 2 spray intranasal DAILY #16 mL 06/25/22 mcg/actuation nasal spray,suspension simvastatin 20 mg tablet 20 mg PO DAILY #90 tabs 06/25/22 fexofenadine 180 mg tablet 180 mg PO Q24H #30 tabs 08/07/22 ([facility] Allergy) prednisone 20 mg tablet 40 mg PO DAILY 5 days #10 tabs 11/02/22 Allergies Allergy/AdvReac Type Severity Reaction Status Date / Time Penicillins [PENICILLINS] Allergy Unknown RASH,HIVES, Verified 11/02/22 15:19 SWELLING latex Allergy Itching Verified 11/02/22 15:19 Review of Systems Review of Systems: Constitutional : No Weight loss, No Fever, No Chills, No Fatigue, No Malaise ENT/Mouth : No sore throat, No Rhinorrhea Eyes: No Eye Pain, No Swelling, No Redness Cardiovascular : No Chest Pain, No SOB, No Dyspnea on Exertion, No Orthopnea, No Edema, No Palpitations Respiratory : No Cough, No Sputum, No Wheezing Gastrointestinal : No Nausea, No Vomiting, No Diarrhea, No Constipation, No abdominal Pain, No Hematochezia, No Melena Genitourinary : No Dysuria, No Urinary Frequency, No Hematuria, Musculoskeletal : + joint pain, No Myalgias, + Joint Swelling Skin : No Skin Lesions, No rash Neuro : No Weakness, No Numbness, No Dizziness, No Headache Psych : No Anxiety/Panic, No Depression All other systems reviewed and are negative Yes all other systems are reviewed and are negative [facility] Past Medical History Attestation statement: The following information was validated with the patient. Source: old records reviewed and nursing notes reviewed Medical History Asthma History of melanoma Hypercholesteremia Lumbar degenerative disc disease Obesity (BMI 30-39.9) Osteopenia Peripheral neuropathy Surgical History History of bilateral oophorectomy History of melanoma excision (~2014) Family History Family History Father Lung cancer Mother Lung cancer Social History Social History Housing: House Alcohol intake: current Alcohol intake frequency: holidays/special occasions only Patient Tobacco Use Status: Former Tobacco user Tobacco use type: Cigarette Years Smoked: 2002 smoked for 10 years e-Cigarette/Vaping Use: Never Used Second Hand Smoke Exposure: Yes Advance Directives: No Advance Directives Information Provided: No service: No Current occupational status: retired 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 Oriented X3.? No acute distress.? Head: Normocephalic, atraumatic, no step-offs or deformities Eyes: Pupils equal, round and reactive to light.? ENT: Pharynx normal.? Neck: Normal inspection.? Neck supple.? CVS: Normal heart rate and rhythm.? Pulses normal.? Respiratory: No respiratory distress.? Breath sounds normal.? Abdomen: Soft and nontender.? Skin: Skin warm and dry.? Normal skin color.? Normal skin turgor.? Extremities: No lower extremity edema.? No calf ttp , negative Perico b ilaterally. 5/5 strength to bilateral upper and lower extremities + 2+ dorsalis pedis, anterior tibialis and posterior tibialis pulses equal bilateral, right ankle with noted swelling on the lateral aspect. Full range of motion to bilateral shoulders pain-free, 2+ radial pulses equal bilateral. No wrist drop or foot drop. Normal sensation to bilateral upper and lower extremities distally. Normal capillary refill to upper and lower extremities. Back: No midline tenderness, no C-spine tenderness, full range of motion, no CVA tenderness bilaterally Neuro: Oriented X 3.? No motor deficit.? No sensory deficit. CN 2-12 intact Course Course Course Narrative: RME: 72-year-old female with a past medical history depression, HLD, presenting to the ED complaining of right ankle and shoulder pain radiating to right armpit. Admits has been doing more yd work lately. Denies known injury/fall, CP/SOB. Right ankle with noted swelling, chronic per patient. Neurovascularly intact. Right shoulder nontender X-rays ordered Full HPI, ROS and PE to be performed by primary ED provider. Reevaluation(s) Reevaluation #1: No acute fracture dislocation noted to the right ankle, lateral soft tissue swelling noted. Small calcaneal spurs. Degenerative changes of right shoulder noted. Time: 16:23 Reevaluation #2: CBC within normal limits. Chemistry unremarkable. Troponin negative, EKG nonischemic unlikely ACS. Right lower extremity ultrasound negative for DVT. Time: 17:56 Reevaluation #3: Educated patient on diagnosis and treatment plan, answered all question, patient verbalizes understanding. At this time patient will be discharged home, advised to return with new or worsening symptoms. Educated on worrisome signs and symptoms and when to return. At this time I feel comfortable discharge home. Time: 18:19 Medical Decision Making Medical Decision Making [facility] Narrative: 72-year-old female presents with atraumatic right shoulder and ankle pain. Physical exam significant for No lower extremity edema.? No calf ttp , negative Perico bilaterally. 5/5 strength to bilateral upper and lower extremities + 2+ dorsalis pedis, anterior tibialis and posterior tibialis pulses equal bilateral, right ankle with noted swelling on the lateral aspect. Full range of motion to bilateral shoulders pain-free, 2+ radial pulses equal bilateral. No wrist drop or foot drop. Normal sensation to bilateral upper and lower extremities distally. Normal capillary refill to upper and lower extremities. likely degenerative /osteoarthritis, unlikely fracture, dislocation, no signs of neurovascular compromise. Unlikely DVT, arterial occlusion. Unlikely atypical presentation of ACS. Likely musculoskeletal. Plan labs, imaging, ultrasound. Differential Diagnosis Differential Diagnoses: The differential diagnosis associated with the presentation includes likely degenerative /osteoarthritis, unlikely fracture, dislocation, no signs of neurovascular compromise. Unlikely DVT, arterial occlusion. Unlikely atypical presentation of ACS. Likely musculoskeletal. Admission/Observation Consideration of admission/observation: Escalation of care including admission/observation considered Lab Data [facility] Lab Attestation statement: I reviewed the patient's lab results. 11/02/22 16:33 11/02/22 16:33 Labs: Lab Results 11/02/22 11/02/22 11/02/22 Range/Units 16:33 16:33 16:33 WBC 6.9 (4.8-10.8) X10*3/uL RBC 4.85 (4.20-5.50) X10*6/uL Hgb 14.5 (12.0-16.0) g/dl Hct 44.5 (37.0-47.0) % MCV 91.8 (80.0-98.0) fL MCH 29.9 (27.0-33.0) pg MCHC 32.6 (31.0-35.0) g/dl RDW 12.4 (11.0-16.0) % Plt Count 176 (160-400) X10*3/uL MPV 9.3 L (9.4-12.3) fL Immature Gran % (Auto) 0.3 (0.0-0.4) % Neut % (Auto) 58.3 (45-73) % Lymph % (Auto) 33.8 (20-40) % [place] % (Auto) 6.8 (2-11) % Eos % (Auto) 0.7 (0-4) % Baso % (Auto) 0.1 (0-2) % Lymph # (Auto) 2.3 (1.2-4.9) X10*3/uL [place] # (Auto) 0.5 (0.1-1.2) X10*3/uL Eos # (Auto) 0.1 (0.0-0.4) X10*3/uL Baso # (Auto) 0.0 (0.0-0.2) X10*3/uL Abs Immat Gran (auto) 0.02 (0.00-0.03) X10*3/uL Absolute Neuts (auto) 4.0 (2.0-8.3) x10*3/uL Absolute Nucleated RBC 0.000 (0.0-0.012) X10*3/uL Nucleated RBC % (auto) 0.0 (0.0-0.2) /100WBC Sodium 137 (135-145) mmol/L Potassium 4.1 (3.3-5.1) mmol/L Chloride 100 (96-108) mmol/L Carbon Dioxide 29 (22-29) mmol/L Anion Gap 12 (12-20) BUN 16 (9-16) mg/dL Creatinine 0.77 (0.5-1.4) mg/dL Estim Creat Clear Calc 70.2 Estimated GFR > 60 Random Glucose 194 H (60-115) mg/dL Calcium 9.5 (8.4-10.2) mg/dL Total Bilirubin 0.4 (0.0-1.0) mg/dL AST 17 (5-31) U/L ALT 15 (0-31) U/L Alkaline Phosphatase 103 (39-117) U/L Troponin I High Sens < 2.7 (<3.5-17.0) ng/L Total Protein 7.1 (6.5-8.0) g/dL Albumin 4.3 (3.5-5.0) g/dL Independent Interpretation I performed an independent interpretation of an: EKG ( Ventriculea rate t r 74, MS normal, QRS normal, QT / QTC normal. EKG with normal sinus rhythm no ST elevations or inversions concerning for ischemia) and Plain X-Ray (XR/XR shoulder RT min 2V IMPRESSION: Degenerative changes. XR/XR ankle RT min 3V IMPRESSION: No acute fracture or dislocation. Lateral soft tissue swelling. Small calcaneal spurs. ) Radiology Impression Discussion of test interpretation with radiology: I have reviewed the radiologist's reading. Core Measures AMI core measures followed: Yes Measure exclusions: not indicated Critical Care Time Critical Care Time Critical Care Time: No Discharge Plan Discharge Clinical Impression: Pain in right shoulder, Ankle swelling Patient Disposition: Still a Patient Instructions: Swollen Joint (ED), Shoulder Pain (ED), Swollen Ankle Joint (ED) Additional Instructions: Take your medications as prescribed. If you were prescribed antibiotics today, it is important that you take your medication to their entirety, do not skip any doses, do not finish them early. Follow-up with your primary care provider this week. Return to the emergency department with new or worsening symptoms. Such as fevers, chills, chest pain, shortness of breath, nausea, vomiting, dizziness, headache, vision changes, lethargy In case of emergency call 911 US/US venous duplex LE RT IMPRESSION: No DVT demonstrated in the right lower extremity. Prescriptions: New prednisone 20 mg tablet 40 mg PO DAILY 5 Days Qty: 10 0RF No Action fexofenadine [Mar[facility]u Allergy] 180 mg tablet 180 mg PO DAILY Qty: 90 3RF simvastatin 20 mg tablet 20 mg PO DAILY Qty: 90 2RF fluticasone propionate 50 mcg/actuation spray,suspension 2 spray intranasal DAILY Qty: 16 2RF albuterol sulfate [ProAir HFA] 90 mcg/actuation HFA aerosol inhaler 2 puff inhalation Q4-6H Qty: 8.5 0RF cholecalciferol (vitamin D3) 125 mcg (5,000 unit) capsule 125 mcg PO DAILY cyanocobalamin (vitamin B-12) 1,000 mcg capsule 1,000 mcg PO DAILY fexofenadine [[facility]] 30 mg/5 mL suspension 60 mg PO BID fexofenadine [Mar[facility]u Allergy] 180 mg tablet 180 mg PO Q24H Qty: 30 3RF Referrals: Po,Lorenver O, MD [Primary Care Provider] - 2 days
--- NOTE | 2022-11-02 15:23 | ECG_ITS ---
Test Reason : shoulder pain Blood Pressure : / mmHG Vent. Rate : 074 BPM Atrial Rate : 074 BPM P-R Int : 162 ms QRS Dur : 080 ms QT Int : 380 ms P-R-T Axes : 073 026 099 degrees QTc Int : 421 ms Normal sinus rhythm Septal infarct , age undetermined Abnormal ECG No previous ECGs available Referred By: Alesia Ovalles Electronically Signed By:ZACHERY KELLY MD
[2022-11-02 16:37] LABS: MANUAL DIFF FLAG NO
[2022-11-02 16:44] LABS: Basophils Percent Auto 0.1 % (0-2); Eosinophils Absolute Auto 0.1 X10*3/uL (0.0-0.4); Eosinophils Percent Auto 0.7 % (0-4); Hematocrit 44.5 % (37.0-47.0); Hemoglobin 14.5 g/dl (12.0-16.0); Imm Gran Abs Auto 0.02 X10*3/uL (0.00-0.03); Imm Gran Pct Auto 0.3 % (0.0-0.4); Lymphocytes Absolute Auto 2.3 X10*3/uL (1.2-4.9); Lymphocytes Percent Auto 33.8 % (20-40); Mean Corpuscular HGB Conc 32.6 g/dl (31.0-35.0); Mean Corpuscular Hemoglobin 29.9 pg (27.0-33.0); Mean Corpuscular Volume 91.8 fL (80.0-98.0); Mean Platelet Volume 9.3 fL (9.4-12.3); Monocytes Absolute Auto 0.5 X10*3/uL (0.1-1.2); Monocytes Percent Auto 6.8 % (2-11); Neutrophils Percent Auto 58.3 % (45-73); Platelet Count 176 X10*3/uL (160-400); Red Blood Count 4.85 X10*6/uL (4.20-5.50); Red Cell Distribution Width 12.4 % (11.0-16.0); White Blood Count 6.9 X10*3/uL (4.8-10.8)
[2022-11-02 16:57] LABS: Alanine Aminotransferase 15 U/L (0-31); Albumin Level 4.3 g/dL (3.5-5.0); Alkaline Phosphatase 103 U/L (39-117); Anion Gap 12 (12-20); Aspartate Amino Transferase 17 U/L (5-31); Bilirubin Total 0.4 mg/dL (0.0-1.0); Blood Urea Nitrogen 16 mg/dL (9-16); Calcium 9.5 mg/dL (8.4-10.2); Carbon Dioxide 29 mmol/L (22-29); Chloride 100 mmol/L (96-108); Creatinine Clr Calc Pharmacy 70.2; Estimated Glomerular Filt Rate > 60; Glucose Random 194 mg/dL (60-115); Potassium 4.1 mmol/L (3.3-5.1); Sodium 137 mmol/L (135-145); Total Protein 7.1 g/dL (6.5-8.0)
[2022-11-02 17:06] LABS: Troponin-I High Sensitivity < 2.7 ng/L (<3.5-17.0)
== END 2022-11-02 18:27 | disposition still patient (30) ==
PROVIDERS: Physician Assistant; Emergency Provider Emergency Medicine; PCP Internal Medicine
DX: M25.511 Pain in right shoulder (principal); M25.471 Effusion, right ankle; M25.571 Pain in right ankle and joints of right foot; E78.5 Hyperlipidemia, unspecified; M77.31 Calcaneal spur, right foot; M79.89 Other specified soft tissue disorders
CPT/HCPCS: 36415; 73030; 73610; 80053; 84484; 85025; 93005; 93971; 99283; 99284

== ENCOUNTER 2022-12-26 16:21 | Emergency (ER) | payer MEDICARE, SELFPAY ==
--- NOTE | ~2022-12-26 | XR_ITS ---
EXAMINATION: XR ELBOW, LEFT CLINICAL INFORMATION: Fall. Pain. COMPARISON: None available. TECHNIQUE: AP, lateral, and oblique views of the left elbow. FINDINGS: No fracture. No dislocation. No joint effusion. Small spur at the posterior olecranon. Edema in the subcutaneous tissue at the dorsum of the proximal forearm. There is no radiopaque foreign body. There is a broad-based exostosis at the radial tuberosity. XR/XR elbow LT min 3V IMPRESSION: 1. No acute osseous abnormality. 2. Edema in the subcutaneous tissue at the dorsum of the proximal forearm. No radiopaque foreign body.
[2022-12-26 16:58] VITALS: BP 159/66; PULSE 74; RESP 18; TEMP 35.9; O2SAT 93; BMI 31.8
--- NOTE | 2022-12-26 16:58 | ED.UPPEXIN ---
HPI - Extremity Injury (Upper) General Chief Complaint: Extremity Injury, Upper Stated Complaint: left arm,elbow pain fell Time Seen by Provider: 12/26/22 18:47 Source: patient Mode of arrival: ambulatory Limitations: no limitations History of Present Illness HPI narrative: Patient is a 72-year-old female presents emergency department for evaluation after a mechanical fall last night on the stairs, sustaining injury to the left elbow. Localized swelling and ecchymosis to the elbow, pain with movement. Denies numbness tingling or cold sensation to the extremity. Denies use of anticoagulants. Denies head strike or loss of consciousness. Related Data Home Medications Medication Instructions Recorded Confirmed cholecalciferol (vitamin D3) 125 125 mcg PO DAILY 07/29/20 08/07/22 mcg (5,000 unit) capsule cyanocobalamin (vitamin B-12) 1,000 mcg PO DAILY 07/29/20 08/07/22 1,000 mcg capsule fexofenadine 30 mg/5 mL oral 60 mg PO BID 08/07/22 08/07/22 suspension ([facility]) Previous Rx's Medication Instructions Recorded fexofenadine 180 mg tablet 180 mg PO DAILY #90 tabs 08/20/20 ([facility] All[facility]) albuterol sulfate 90 mcg/actuation 2 puff inhalation Q4-6H #8.5 grams 06/25/22 aerosol inhaler (ProAir HFA) fluticasone propionate 50 2 spray intranasal DAILY #16 mL 06/25/22 mcg/actuation nasal spray,suspension simvastatin 20 mg tablet 20 mg PO DAILY #90 tabs 06/25/22 fexofenadine 180 mg tablet 180 mg PO Q24H #30 tabs 08/07/22 ([facility] All[facility]) prednisone 20 mg tablet 40 mg PO DAILY 5 days #10 tabs 11/02/22 Allergies Allergy/AdvReac Type Severity Reaction Status Date / Time Penicillins [PENICILLINS] Allergy Unknown RASH,HIVES, Verified 12/26/22 17:00 SWELLING latex Allergy Itching Verified 12/26/22 17:00 Review of Systems Review of Systems: Yes all other systems are reviewed and are negative PMFSH Past Medical History Attestation statement: The following information was validated with the patient. Source: old records reviewed Medical History Asthma History of melanoma Hypercholesteremia Lumbar degenerative disc disease Obesity (BMI 30-39.9) Osteopenia Peripheral neuropathy Surgical History History of bilateral oophorectomy History of melanoma excision (~2014) Family History Family History Father Lung cancer Mother Lung cancer Social History Social History Housing: House Alcohol intake: current Alcohol intake frequency: holidays/special occasions only Patient Tobacco Use Status: Former Tobacco user Tobacco use type: Cigarette Years Smoked: 2002 smoked for 10 years e-Cigarette/Vaping Use: Never Used Second Hand Smoke Exposure: Yes Advance Directives: No Advance Directives Information Provided: No service: No Current occupational status: retired 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 No acute distress.?Normal affect. Eyes: Pupils equal, round and reactive to light.? Neck: Normal inspection.? Neck supple.??No midline cervical spine tenderness, step-offs, deformities. CVS: Heart sounds normal. Normal heart rate and rhythm.? Pulses normal.?? Respiratory: No respiratory distress.? Lung sounds clear to auscultation bilaterally?? Abdomen: Soft and non-tender. Normoactive bowel sounds. Skin: Skin warm and dry.? Normal skin color.? Extremities: No extremity edema, no obvious deformity. Hematoma present to the left elbow with decreased AROM. 2+ radial pulse bilaterally. Neuro: Moves all extremities spontaneously. Sensation intact bilaterally. No focal neuro deficits. Ambulates with normal steady gait. Medical Decision Making Medical Decision Making MDM Narrative: Patient is a 72-year-old female who presents emergency department for evaluation of traumatic left elbow pain. Decreased AROM, there is localized swelling to the proximal forearm. XR reveals no traumatic fracture or dislocation, there is an exostosis present which may be contributing to her pain in the setting of injury. Symptoms consistent with contusion and sprain. Denies any head strike or loss of consciousness with this fall, it occurred yesterday evening she has no focal neurological deficits. Would defer any CT imaging of the head/cervical spine at this time. At this time patient stable for discharge home, reviewed worrisome signs and symptoms that would warrant re-evaluation emergency department. All questions answered. Differential Diagnosis Differential Diagnoses: The differential diagnosis associated with the presentation includes (As noted above) Independent Interpretation I performed an independent interpretation of an: Plain X-Ray (I personally interpreted XR imaging agree with radiologist impression there is no acute fracture or dislocation) Radiology Impression Discussion of test interpretation with radiology: I have reviewed the radiologist's reading. Radiologist Impression: XR/XR elbow LT min 3V IMPRESSION: 1.? No acute osseous abnormality. 2.? Edema in the subcutaneous tissue at the dorsum of the proximal forearm. No radiopaque foreign body. Independent Historian Clinical information obtained from an independent historian. History obtained from or confirmed by: Friend (Who Confirms history) Prescription Management I considered prescription management with: Pain Medication (Acetaminophen would be appropriate for management) Discharge Plan Discharge Clinical Impression: Contusion of elbow Patient Disposition: Home, Self-Care Instructions: Contusion in Adults (ED) Additional Instructions: X-ray shows no fracture dislocation. You can take Tylenol 500 mg, 2 tablets (1,000mg) every 4-6 hours as needed for pain, but not to exceed 3 doses daily (3,000mg).? Follow-up with your primary care provider as needed. You may return back to emergency department any new or worsening symptoms Prescriptions: No Action fexofenadine [Mar[facility]u Allergy] 180 mg tablet 180 mg PO DAILY Qty: 90 3RF simvastatin 20 mg tablet 20 mg PO DAILY Qty: 90 2RF fluticasone propionate 50 mcg/actuation spray,suspension 2 spray intranasal DAILY Qty: 16 2RF albuterol sulfate [ProAir HFA] 90 mcg/actuation HFA aerosol inhaler 2 puff inhalation Q4-6H Qty: 8.5 0RF prednisone 20 mg tablet 40 mg PO DAILY 5 Days Qty: 10 0RF cholecalciferol (vitamin D3) 125 mcg (5,000 unit) capsule 125 mcg PO DAILY cyanocobalamin (vitamin B-12) 1,000 mcg capsule 1,000 mcg PO DAILY fexofenadine [[facility] Allergy] 30 mg/5 mL suspension 60 mg PO BID fexofenadine [[facility]u Allergy] 180 mg tablet 180 mg PO Q24H Qty: 30 3RF Referrals: Po,Sp Hinds MD [Primary Care Provider] - Interventions: ED Discharge Assessment Last Done: 12/26/22 19:15 Discharge Date/Time: 12/26/22 19:15
[2022-12-26 18:31] VITALS: BP 146/82; PULSE 86; RESP 18; TEMP 37.1; O2SAT 98
== END 2022-12-26 19:15 | disposition home or self-care (01) ==
PROVIDERS: Emergency Provider Emergency Medicine; PCP Internal Medicine
DX: S50.02XA Contusion of left elbow, initial encounter (principal); W17.89XA Other fall from one level to another, initial encounter; E78.00 Pure hypercholesterolemia, unspecified; Z87.891 Personal history of nicotine dependence; E66.9 Obesity, unspecified; Z68.31 Body mass index [BMI] 31.0-31.9, adult; Y93.89 Activity, other specified; Y92.9 Unspecified place or not applicable; Y99.9 Unspecified external cause status
CPT/HCPCS: 73080; 99283

== ENCOUNTER 2023-04-01 08:37 | Outpatient (AMB) | payer MEDICARE, SELFPAY ==
[2023-04-01 08:58] VITALS: BP 122/70; PULSE 55; O2SAT 9; BMI 31.4
--- NOTE | 2023-04-01 08:58 | MHC.PC.OV ---
Vital Signs 04/01/23 08:58 Height 5 ft 4 in Weight 183 lb BMI 31.4 BP 122/70 Blood Pressure Location Lt brachial Position Sitting Pulse 55 Pulse Source Pulse Oximeter Pulse Oximetry (%) 9 L Oxygen Delivery Method Room Air Intake Visit Reasons: question gout Intake Note: Patient is here today for possible gout Spray Foam Installer Required: No Security Messenger: Not Required per policy Accompanied by: Self / Same As Patient Allergies Penicillins [PENICILLINS] Allergy (Unknown, Verified 04/01/23 09:08) RASH,HIVES,SWELLING latex Allergy (Verified 04/01/23 09:08) Itching Medication List - Last Reconciled 04/01/23 by Kevin Zaman PA-C albuterol sulfate 90 mcg/actuation (ProAir HFA) 2 puffs inhalation Q4-6H cholecalciferol (vitamin D3) 125 mcg PO DAILY cyanocobalamin (vitamin B-12) 1,000 mcg PO DAILY fexofenadine (Marilu Allergy) 180 mg PO DAILY fluticasone propionate 50 mcg/actuation 2 sprays intranasal DAILY simvastatin 20 mg PO DAILY Tobacco use date assessed: 07/17/22 Fall risk assessment: No Falls in past year Last assessed Fall Risk: 04/28/23 Dental Screening Dental Screen Date: 04/01/23 Did you have a dental visit in the last 12 months?: No Did you have a dental problem in the last 6 months where you did not have access to dental care?: No Was dental information given to patient?: Patient has dentist HPI question gout HPI Details Patient is a 72-year-old female here today for problem visit. This is the 1st time I am meeting this 72-year-old female with a past medical history significant for hypertriglyceridemia, obesity, asthma, allergic rhinitis and hyperlipidemia. She is concerned about gout as she has been experiencing. She reports over the last 6 months has to acute flares of ankle pain and swelling. She reports before her flares she had foods that are high in purine. PLAN: Will check uric acid levels Also has been experiencing more allergy type symptoms. Has seen an morning news producer in a gotten food allergy testing. Has been using Marilu and Flonase nasal spray without much relief. She is willing to try new medication for her allergies. [facility] Medical History History of melanoma Osteopenia Lumbar degenerative disc disease Peripheral neuropathy Asthma Obesity (BMI 30-39.9) Hypercholesteremia Surgical History History of melanoma excision (~2014) History of bilateral oophorectomy Family History Father Lung cancer Mother Lung cancer Social History Housing: House Alcohol intake: current Alcohol intake frequency: holidays/special occasions only Patient Tobacco Use Status: Former Tobacco user Tobacco use type: Cigarette Years Smoked: 2001 smoked for 10 years e-Cigarette/Vaping Use: Never Used Second Hand Smoke Exposure: Yes service: No Current occupational status: retired 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 1. Little interest or pleasure in doing things: not at all 2. Feeling down, depressed, or hopeless: not at all 3. Trouble falling or staying asleep, or sleeping too much: not at all 4. Feeling tired or having little energy: not at all 5. Poor appetite or overeating: not at all 6. Feeling bad about yourself - or that you are a failure or have let yourself or your family down: not at all 7. Trouble concentrating on things, such as reading the newspaper or watching television: not at all 8. Moving or speaking so slowly that other people could have noticed. Or the opposite - being so fidgety or restless that you have been moving around a lot more than usual: not at all 9. Thoughts that you would be better off or of hurting yourself in some way: not at all Total score: 0 Depression Screening Interpretation: Negative Depression Screening Done: Yes Source: Developed by Drs. Benjamín Ramos, Alem Calabrese, Anthony Nicolas and colleagues, with an educational [place] from [employer]. Thrive Questionnaire Date Thrive assessed: 07/17/22 AUDIT C Alcohol Use Questionnaire (AUDIT-C) 1. How often do you have a drink containing alcohol?: 2-4 times a month 2. How many drinks containing alcohol do you have on a typical day when you are drinking?: 1 or 2 3. How often do you have six or more drinks on one occasion?: Never Total Score: 2 JULIA-7 AMB Questionnaire JULIA-7 Date JULIA - 7 assessed: 07/17/22 Source: Developed by Drs. Benjamín Ramos, Alem Calabrese, Anthony Nicolas and colleagues, with an educational [place] from [employer]. Review of Systems Const Denies headache(s) Eyes Denies loss of vision ENT Denies vertigo, Denies dizziness, Denies headache(s) and Denies sore throat Card Denies chest pain, Denies leg edema and Denies lightheadedness Resp Denies cough, Denies hemoptysis and Denies wheezing GI Denies abdominal pain, Denies melena, Denies constipation, Denies diarrhea and Denies vomiting Denies urinary frequency, Denies dysuria and Denies urinary urgency Musc Denies arthralgias, Denies joint swelling, Denies numbness and Denies tingling Neuro Denies Abnormal speech present, Denies behavioral changes, Denies vertigo, Denies dizziness, Denies headache(s), Denies loss of vision, Denies memory loss, Denies numbness and Denies tingling Psych Denies anxiety, Denies behavioral changes, Denies depression, Denies memory loss and Denies panic attacks Marcus/Lymph Denies easy bleeding and Denies easy bruising Aller/Immun Denies wheezing Physical exam (Primary Care) Vital Signs: Last Vital Signs Pulse 55 04/01/23 08:58 BP 122/70 04/01/23 08:58 Pulse Ox 9 L 04/01/23 08:58 Oxygen Delivery Method Room Air 04/01/23 08:58 BMI result Body Mass Index 31.4 Tobacco/Smoking Status: Tobacco use Status Tobacco use date assessed 07/17/22 04/01/23 08:58 Patient Tobacco Use Status Former Tobacco user 04/01/23 08:58 Tobacco use type Cigarette 04/01/23 08:58 e-Cigarette/Vaping Use Never Used 04/01/23 08:58 PHQ-9: PHQ-9 Score PHQ-9: Total score 0 04/01/23 09:00 Depression Screening Interpretation: Negative Thrive Assessment: Date of Thrive Assessment Date Thrive assessed 07/17/22 04/01/23 08:58 Const General: healthy appearing, no acute distress, alert and awake Nutritional Appearance: well nourished Orientation/consciousness: oriented to person, oriented to place and oriented to time HENMT Ears: TM's normal bilaterally General nose exam: Normal nasal mucous membranes and turbinates present Eyes Conjunctivae: conjunctivae normal Sclerae: sclerae normal Pupils: Equal, round and reactive pupils present Neck Neck: Yes no lymphadenopathy and Yes no JVD Thyroid: Thyroid normal Carotids: no bruits Resp Effort & Inspection: normal respiratory effort and not tachypneic Auscultation: no crackles, no rales, no rhonchi and no wheezes Cardio Rate: regular rate Rhythm: regular rhythm Heart sounds: no murmurs and normal S1 and S2 GI Palpation (GI): Soft to palpation, nontender, no hepatomegaly and no splenomegaly Auscultation: normal bowel sounds Skin General skin exam: no rashes or lesions noted and dry skin Neuro General: oriented to person, oriented to place and oriented to time Cranial nerves: Yes Equal, round and reactive pupils present Speech: No Abnormal speech present Gait exam (Neuro): Normal gait present Motor exam (neuro): no tremor noted Extrem Right upper extremity: full ROM Left upper extremity: full ROM Right lower extremity: full ROM; no edema Left lower extremity: full ROM; no edema Psych Mental Status: mental status grossly normal Speech and movement: Normal speech and movement present Affect: normal affect Attitude: cooperative Thought process: Normal thought process present Assessment and Plan Assessment & Plan (1) Gout of ankle: Code(s): M10.9 - Gout, unspecified Qualifiers: Gout etiology: idiopathic Chronicity: acute Laterality: right Qualified Code(s): M10.071 - Idiopathic gout, right ankle and foot Plan: Patient's signs and symptoms are most consistent with acute gout flares. Advised on low purine diet. Will supply with indomethacin 25 mg to use on a p.r.n. basis for gout flares. Will check a uric acid low (2) Allergic rhinitis: Code(s): J30.9 - Allergic rhinitis, unspecified Qualifiers: Allergic rhinitis trigger: other Allergic rhinitis seasonality: unspecified Qualified Code(s): J30.89 - Other allergic rhinitis Plan: She continues to suffer with signs symptoms of sinusitis in acute rhinitis pain has been using Marilu though feels is not effective. She is currently seen an morning news producer and undergoing allergy testing.. Will supply her with montelukast to use to see if this works better for on reducing her sinusitis and rhinitis Orders: Orders Uric Acid Today M10.071 - Idiopathic gout, right ankle and foot Lipid Panel Today E78.1 - Pure hyperglyceridemia Comprehensive [place]. Panel Fast Today E78.1 - Pure hyperglyceridemia Medications: New indomethacin administer with food or milk 25 mg PO BID 7 days PRN 14 caps 0RF gout attack M10.071 - Idiopathic gout, right ankle and foot montelukast 10 mg PO DAILY 90 tabs 1RF J30.89 - Other allergic rhinitis On Hold fexofenadine (Marilu Allergy) Hold Comment: Doctor's Order 180 mg PO DAILY 90 tabs 3RF Coding Level of Care Code Est Pt Level 4 (28549) Diagnoses Acute idiopathic gout of right ankle M10.071 Gout etiology: idiopathic Chronicity: acute Laterality: right Allergic rhinitis due to other allergic trigger, unspecified seasonality J30.89 Allergic rhinitis trigger: other Allergic rhinitis seasonality: unspecified Additional Codes PHQ-9 - 16670 - PHQ-9 Billing: ([id number])
== END 2023-04-01 09:30 | disposition home or self-care (01) ==
PROVIDERS: PCP Internal Medicine; Visit Provider Physician Assistant
DX: M10.071 Idiopathic gout, right ankle and foot (principal); J30.89 Other allergic rhinitis
CPT/HCPCS: 99214

== ENCOUNTER 2023-04-09 10:25 | Outpatient (REF) | payer MEDICARE, SELFPAY ==
[2023-04-09 14:01] LABS: Alanine Aminotransferase 12 U/L (0-31); Albumin Level 4.3 g/dL (3.5-5.0); Alkaline Phosphatase 94 U/L (39-117); Anion Gap 12 (12-20); Aspartate Amino Transferase 17 U/L (5-31); Bilirubin Total 0.6 mg/dL (0.0-1.0); Blood Urea Nitrogen 15 mg/dL (9-16); Calcium 9.4 mg/dL (8.4-10.2); Carbon Dioxide 29 mmol/L (22-29); Chloride 102 mmol/L (96-108); Cholesterol 187 mg/dL (<200); Estimated Glomerular Filt Rate > 60; Glucose Fasting 95 mg/dL (60-99); HDL Cholesterol 62 mg/dL (>40); LDL Cholesterol Calculated 82 mg/dL (<100); Potassium 4.3 mmol/L (3.3-5.1); Sodium 139 mmol/L (135-145); Total Protein 7.2 g/dL (6.5-8.0); Triglycerides 216 mg/dL (<150); Uric Acid 4.9 mg/dL (2.4-5.7)
== END 2023-04-09 10:26 | disposition home or self-care (01) ==
LOC: HO.HMGCLDS 10:25
PROVIDERS: PCP Internal Medicine; Visit Provider Physician Assistant
DX: M10.071 Idiopathic gout, right ankle and foot (principal); E78.1 Pure hyperglyceridemia
CPT/HCPCS: 36415; 80053; 80061; 84550

== ENCOUNTER 2023-04-13 10:04 | Outpatient (AMB) | payer MEDICARE, SELFPAY ==
[2023-04-13 10:11] VITALS: BP 140/78; RESP 60; O2SAT 98; BMI 31.8
--- NOTE | 2023-04-13 10:11 | A.OFFVIS_ITS ---
Intake Vital Signs 04/13/23 10:11 04/13/23 10:27 Height 5 ft 4 in Weight 185 lb BMI 31.8 BP 140/78 H 130/70 Blood Pressure Location Lt brachial Lt brachial Position Sitting Sitting Respiration 60 H Pulse Source Pulse Oximeter Pulse Oximetry (%) 98 Oxygen Delivery Method Room Air Intake Visit Reasons: [facility] G0439 Tag Machine Operator Required: No Accompanied by: Self / Same As Patient Allergies Penicillins [PENICILLINS] Allergy (Unknown, Verified 04/13/23 10:12) RASH,HIVES,SWELLING latex Allergy (Verified 04/13/23 10:12) Itching Medication List - Last Reconciled 04/13/23 by Sp Almanza MD albuterol sulfate 90 mcg/actuation (ProAir HFA) 2 puffs inhalation Q4-6H cholecalciferol (vitamin D3) 125 mcg PO DAILY cyanocobalamin (vitamin B-12) 1,000 mcg PO DAILY fluticasone propionate 50 mcg/actuation 2 sprays intranasal DAILY montelukast 10 mg PO DAILY simvastatin 20 mg PO DAILY HPI SWV G0439 HPI Details 72-year-old obese female with hyperchole sterolemia impaired glucose tolerance coming in for an annual well visit last seen in June 2022. Review of the notes has seen the nurse practitioner in March 2023 for question of gout and placed on indomethacin as well as blood work for uric acid . ER visit October 2022 right ankle pain and right shoulder pain ultrasound done of lower extremity negative for DVT and was placed on prednisone.uric acid is negative xray just showed spurs signifying OA PFSH Medical History History of melanoma Osteopenia Lumbar degenerative disc disease Peripheral neuropathy Asthma Obesity (BMI 30-39.9) Hypercholesteremia Surgical History History of melanoma excision (~2014) History of bilateral oophorectomy Family History Father Lung cancer Mother Lung cancer (Updated 04/13/23 @ 10:33 by Sp Almanza MD) Housing: House Alcohol intake: current Alcohol intake frequency: holidays/special occasions only Patient Tobacco Use Status: Former Tobacco user Tobacco use type: Cigarette Years Smoked: 2001 smoked for 10 years e-Cigarette/Vaping Use: Never Used Second Hand Smoke Exposure: Yes service: No Current occupational status: retired Current occupation: School Cafeteria - Left Handed Cognitive needs: No Hearing needs: No Vision needs: Yes (Glasses) Questionnaire Medicare Wellness Checkup [age] What gender do you identify with?: female During the past 4 weeks, how much have you been bothered by emotional problems such as feeling anxious, depressed, irritable, sad or downhearted, and blue?: not at all During the past 4 weeks, has your physical & emotional health limited your social activities with family, friends, neighbors, or groups?: not at all During the past 4 weeks, how much bodily pain have you generally had?: no pain During the past 4 weeks, was someone available to help you if you needed & wanted help?: yes, as much as I wanted During the past 4 weeks, what was the hardest physical activity you could do for at least 2 minutes?: very heavy Can you get to places out of walking distance without help? (For eg., can you travel alone on buses, taxis or drive your car?): Yes Can you go shopping for groceries or clothes without someone's help?: Yes Can you prepare your own meals?: Yes Can you do your housework without help?: Yes Because of any health problems, do you need the help of another person with your personal care needs such as eating, bathing, dressing or getting around the house?: No Can you handle your own money without help?: Yes During the past 4 weeks, how would you rate your health in general?: very good During the past 4 weeks how have things been going for you?: very well; could hardly better Are you having difficulties driving your car?: no Do you always fasten your seat belt when you are in a car?: yes, usually During past 4 weeks, have you been bothered by the following: never: Falling or dizzy when standing up, Sexual problems?, Trouble eating well?, Teeth or denture problems? and Problems using the telephone? and seldom: Tiredness or fatigue? Have you fallen 2 or more times in the past year?: No Are you afraid of falling?: Yes Are you a smoker?: no During the past 4 weeks, how many drinks of wine, beer, or other alcoholic beverages did you have?: 1 drink or less per week Do you exercise for about 20 minutes 3 or more times a week?: no, I usually do not exercise this much Have you been given information to help with the following?: yes: Hazards in your house that might hurt you? and no: Keeping track of your medications? How often do you have trouble taking medicines the way you have been told to take them?: I always take medicine as prescribed How confident are you that you can control & manage most of your health problems?: very confident What is your race?: White PHQ-9 Over the last 2 weeks, how often have you been bothered by any of the following problems? 1. Little interest or pleasure in doing things: not at all 2. Feeling down, depressed, or hopeless: not at all 3. Trouble falling or staying asleep, or sleeping too much: not at all 4. Feeling tired or having little energy: not at all 5. Poor appetite or overeating: not at all 6. Feeling bad about yourself - or that you are a failure or have let yourself or your family down: not at all 7. Trouble concentrating on things, such as reading the newspaper or watching television: not at all 8. Moving or speaking so slowly that other people could have noticed. Or the opposite - being so fidgety or restless that you have been moving around a lot more than usual: not at all 9. Thoughts that you would be better off or of hurting yourself in some way: not at all Total score: 0 Depression Screening Interpretation: Negative Depression Screening Done: Yes Source: Developed by Drs. Benjamín Ramos, Alem Calabrese, Anthony Nicolas and colleagues, with an educational [place] from [employer]. Review of Systems Const Denies poor appetite and Denies weakness Eyes Denies no additional complaints ENT Reports Normal hearing present, Denies dizziness, Denies nasal congestion, Denies tinnitus and Denies sore throat Card Denies chest pain, Denies syncope, Denies rapid heart rate and Denies dyspnea Resp Denies cough and Denies dyspnea GI Denies change in stool character, Reports constipation, Denies diarrhea, Denies nausea and Denies vomiting Denies urinary frequency, Denies difficulty voiding and Denies dysuria Neuro Reports Normal hearing present, Denies confusion, Denies dizziness, Denies syncope and Denies weakness Psych Denies confusion Physical Exam Vital Signs: Last Vital Signs Resp 60 H 04/13/23 10:11 BP 130/70 04/13/23 10:27 Pulse Ox 98 04/13/23 10:11 Oxygen Delivery Method Room Air 04/13/23 10:11 BMI result Body Mass Index 31.8 Const General: alert and awake; No confusion Orientation/consciousness: No confusion HEENT Head: Yes normocephalic Ears: external ears normal and TM's normal bilaterally Face and sinus: Yes normal facial exam Mouth: moist mucous membranes Throat: Yes tonsils normal Eyes Conjunctivae: conjunctivae normal Pupils: Equal, round and reactive pupils present and Pupil accommodation reflex normal Direct Ophthalmoscopy: normal light reflex Neck Neck: No lymphadenopathy Thyroid: Thyroid normal Chest Chest palpation & inspection: normal inspection of the chest Resp Effort & Inspection: normal respiratory effort and no audible wheezes Auscultation: clear to auscultation bilaterally, no crackles, no wheezes and lung sounds not diminished Cardio Rate: regular rate Rhythm: regular rhythm Peripheral pulses: radial pulses present and dorsalis pedis present GI Palpation (GI): no masses Auscultation: normal bowel sounds and normoactive bowel sounds Rectal Exam - Female: deferred Skin General skin exam: no rashes or lesions noted Rashes: no rashes Neuro General: deep tendon reflexes 2+ bilaterally and No confusion Cranial nerves: Yes Equal, round and reactive pupils present, Yes Midline tongue present, Yes Normal hearing present and Yes Ability to bilaterally elevate shoulders present Cognition (Neuro): normal cognition Gait exam (Neuro): Normal gait present Motor exam (neuro): 5/5 motor strength present throughout Deep tendon reflexes (DTR's): Right brachioradialis reflex intensity grade: 2+, Left brachioradialis reflex intensity grade: 2+, Right patellar reflex intensity grade: 2+ and Left patellar reflex intensity grade: 2+ Extrem General: No edema Office Procedures Flu Questionnaire Does the patient have a severe egg allergy?: No Does the patient have severe life threatening allergies?: No Does the patient have a fever or illness today?: No Has the patient ever had Guillain-Canovanas Syndrome?: No Has the patient ever had any past reaction to a flu shot?: No Immunizations flu vacc [id number] 6mos up(PF) 60 mcg(15 mcgx4)/0.5 mL IM syringe Performing Provider: Sp Almanza MD [facility] Administered by: ARNAV Brown on 04/13/23 11:16 Dose Route Admin Location Dispensed Lot Number Expiration Date NDC Plastics Technician 0.5 mL IM Left Deltoid 0.5 mL [id number] 11/21/23 65599-178-41 [employer] VIS Given Date VIS Provided VIS Publication Date 04/13/23 Single Vaccine 20 Eligibility Eligibility Date Funding Source Not VFC Eligible 04/13/23 Private Assessment & Plan Assessment & Plan (1) Medicare annual wellness visit, subsequent: Code(s): Z00.00 - Encounter for general adult medical examination without abnormal findings (2) Obesity (BMI 30-39.9): Code(s): E66.9 - Obesity, unspecified Plan: Diet and exercise (3) Hypertriglyceridemia: Code(s): E78.1 - Pure hyperglyceridemia Plan: Avoid fried foods, chicken skin, eggs, butter margarine, pastries and meat. Be it pork or beef they have a lot of cholesterol (4) Impaired glucose tolerance: Code(s): R73.02 - Impaired glucose tolerance (oral) (5) Hypercholesteremia: Code(s): E78.00 - Pure hypercholesterolemia, unspecified Plan: Continue with simvastatin 20 mg once a day. Blood work March 2023 LDL goal of less than 130 and triglyceride of less than 150 (6) Hearing difficulty: Code(s): H91.90 - Unspecified hearing loss, unspecified ear (7) Osteoarth NOS-ankle: Code(s): M19.079 - Primary osteoarthritis, unspecified ankle and foot Orders: Orders Influenza [id number] Immunization Today Z23 - Encounter for immunization Complete Blood Count Auto Diff 5 Months E78.00 - Pure hypercholesterolemia, unspecified Comprehensive Met. Panel 5 Months E78.00 - Pure hypercholesterolemia, unspecified Free T4 (Free Thyroxine) 5 Months E78.00 - Pure hypercholesterolemia, unspecified Thyroid Stimulating Hormone 5 Months E78.00 - Pure hypercholesterolemia, unspecified Vitamin D 25-OH Total 5 Months E78.00 - Pure hypercholesterolemia, unspecified Hemoglobin A1c 5 Months E78.00 - Pure hypercholesterolemia, unspecified Lipid Panel 5 Months E78.00 - Pure hypercholesterolemia, unspecified Vitamin B12 and Folate 5 Months E78.00 - Pure hypercholesterolemia, unspecified Referrals Speech and Hearing Referral H91.90 - Unspecified hearing loss, unspecified ear Quality Reporting (2019) Depression/Bipolar (159/160/161/177) PHQ-9: Total score: 0 Coding Level of Care Code Medicare Subsequent (G0439) Diagnoses Medicare annual wellness visit, subsequent Z00.00 Obesity (BMI 30-39.9) E66.9 Hypertriglyceridemia E78.1 Impaired glucose tolerance R73.02 Hypercholesteremia E78.00 Hearing difficulty H91.90 Osteoarth NOS-ankle M19.079 Additional Codes PHQ-9 - 70639 - PHQ-9 Billing: ([id number])
[2023-04-13 10:27] VITALS: BP 130/70
== END 2023-04-13 11:17 | disposition home or self-care (01) ==
PROVIDERS: Visit Provider Internal Medicine
DX: Z23 Encounter for immunization (principal)
CPT/HCPCS: 90471; 90686; 99214; G0439

== ENCOUNTER 2023-06-24 15:38 | Outpatient (AMB) | payer MEDICARE, SELFPAY ==
[2023-06-24 15:38] VITALS: BP 130/80; PULSE 72; TEMP 36.6; O2SAT 96; BMI 31.9
--- NOTE | 2023-06-24 15:38 | AM.OFFWIN_ITS ---
Intake Vital Signs 06/24/23 15:38 Height 5 ft 4 in Weight 186 lb BMI 31.9 BP 130/80 Blood Pressure Location Lt brachial Position Sitting Pulse 72 Pulse Source Pulse Oximeter Temp 97.9 F Temp Source Temporal Artery Scan Pulse Oximetry (%) 96 Oxygen Delivery Method Room Air Intake Visit Reasons: EST cough, Vaginal irritat Intake Note: pt is here today for UTI started 1 weeks ago Patient Tobacco Use Status: Former Tobacco user Allergies Penicillins [PENICILLINS] Allergy (Unknown, Verified 06/24/23 15:39) RASH,HIVES,SWELLING latex Allergy (Verified 06/24/23 15:39) Itching Do you need a note to return to daycare/school/sports/work: No HPI HPI Comments History of Present Illness Details 73 y/o female presents to walk in clinic with c/o urinary symptoms x 1 week. Denies pain with urination. Normal color and smell urine. Reports vaginal discomfort with urination. Pt also reports having productive cough. [facility] Medical History History of melanoma Osteopenia Lumbar degenerative disc disease Peripheral neuropathy Asthma Obesity (BMI 30-39.9) Hypercholesteremia Surgical History History of melanoma excision (~2014) History of bilateral oophorectomy Family History Father Lung cancer Mother Lung cancer Social History (Updated 04/13/23 @ 10:33 by Sp Almanza MD) Housing: House Alcohol intake: current Alcohol intake frequency: holidays/special occasions only Comment: stuffy with alcohol Patient Tobacco Use Status: Former Tobacco user Tobacco use type: Cigarette Years Smoked: 2001 smoked for 10 years e-Cigarette/Vaping Use: Never Used Second Hand Smoke Exposure: Yes service: No Current occupational status: retired Current occupation: School Cafeteria - Left Handed Cognitive needs: No Hearing needs: No Vision needs: Yes (Glasses) Review of Systems Const All systems reviewed & are unremarkable except as noted in HPI and below Physical Exam Vital Signs: Last Vital Signs Temp 97.9 F 06/24/23 15:38 Pulse 72 06/24/23 15:38 BP 130/80 06/24/23 15:38 Pulse Ox 96 06/24/23 15:38 Oxygen Delivery Method Room Air 06/24/23 15:38 BMI result Body Mass Index 31.9 Const General: comfortable and no acute distress HEENT Head: Yes normocephalic Ears: external ears normal and TM's normal bilaterally General nose exam: Normal nasal mucous membranes and turbinates present Face and sinus: Yes sinuses nontender Mouth: Normal oral and palatal mucosa present and moist mucous membranes Throat: Yes posterior oropharynx normal Resp Effort & Inspection: normal respiratory effort Auscultation: clear to auscultation bilaterally Other: Patient deferred Vaginal/pelvic examination. Assessment & Plan Assessment & Plan (1) Cough in adult: Code(s): R05.9 - Cough, unspecified Plan: - OTC cough/cold remedies - Warm fluids (2) Vaginitis and vulvovaginitis: Code(s): N76.0 - Acute vaginitis Plan: - Advised to use [place] Jelly Ovals two times a week. Medications: New benzonatate 200 mg (2 x 100 mg) PO TID 90 caps 0RF clotrimazole-betamethasone 1-0.05 % 1 appl topical BID 15 grams 0RF Coding Level of Care Code Est Pt Level 3 (50335) Diagnoses Cough in adult R05.9 Vaginitis and vulvovaginitis N76.0 Time Spent (min) 15
== END 2023-06-24 17:12 | disposition home or self-care (01) ==
PROVIDERS: PCP Internal Medicine; Visit Provider Nurse Practitioner Family
DX: R05.9 Cough, unspecified (principal); N76.0 Acute vaginitis
CPT/HCPCS: 99213

== ENCOUNTER 2023-08-13 10:11 | Outpatient (AMB) | payer MEDICARE, SELFPAY ==
--- NOTE | 2023-08-13 10:13 | A.OFFPC_ITS ---
Vital Signs 08/13/23 10:17 Height 5 ft 4 in Weight 184 lb 2 oz BMI 31.6 BP 130/80 Blood Pressure Location Lt brachial Position Sitting Pulse 62 Pulse Source Pulse Oximeter Pulse Oximetry (%) 96 Oxygen Delivery Method Room Air Intake Visit Reasons: Ear blockage, sinus infection Intake Note: Patient is here today for ear blockage in both ears,sinus pressure, right neck pain, and popping sounds in both ears. sinus infection? 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 Accompanied by: Spouse Allergies Penicillins [PENICILLINS] Allergy (Unknown, Verified 08/13/23 10:15) RASH,HIVES,SWELLING latex Allergy (Verified 08/13/23 10:15) Itching Medication List - Last Reconciled 08/13/23 by Sp Almanza MD albuterol sulfate 90 mcg/actuation (ProAir HFA) 2 puffs inhalation Q4-6H azithromycin (Zithromax) For 250 mg dose pack: take 500 mg today (day 1), then 250 mg for 4 days (days 2-5) PO benzonatate 200 mg (2 x 100 mg) PO TID cholecalciferol (vitamin D3) 125 mcg PO DAILY clotrimazole-betamethasone 1-0.05 % 1 appl topical BID cyanocobalamin (vitamin B-12) 1,000 mcg PO DAILY fluticasone propionate 50 mcg/actuation 2 sprays intranasal DAILY simvastatin 20 mg PO DAILY Tobacco use date assessed: 08/13/23 Fall risk assessment: No Falls in past year Last assessed Fall Risk: 08/13/23 Dental Screening Dental Screen Date: 08/13/23 Did you have a dental visit in the last 12 months?: Yes Did you have a dental problem in the last 6 months where you did not have access to dental care?: No Was dental information given to patient?: Patient has dentist HPI Ear blockage, sinus infection HPI Details 73-year-old obese female with hypertrigl yceridemia impaired glucose tolerance hypercholesterolemia coming in for follow-up. Last seen in March 2023. Review of the notes in June 2023 was [facility] the [facility] for cough with urinary symptoms. Patient was given Tessalon Perles and clotrimazole betamethasone cream. Patient also has seen the electrician front April 2023 diagnosis of mild intermittent asthma vasomotor rhinitis positive for mold allergies. Given Flonase and Singulair. bilateral ear blocked R neck pain congested, clearing throat, had sore throat PFSH Medical History History of melanoma Osteopenia Lumbar degenerative disc disease Peripheral neuropathy Asthma Obesity (BMI 30-39.9) Hypercholesteremia Surgical History History of melanoma excision (~2014) History of bilateral oophorectomy Family History Father Lung cancer Mother Lung cancer Social History Housing: House Alcohol intake: current Alcohol intake frequency: holidays/special occasions only Comment: stuffy with alcohol Patient Tobacco Use Status: Former Tobacco user Tobacco use type: Cigarette Years Smoked: 2001 smoked for 10 years e-Cigarette/Vaping Use: Never Used Second Hand Smoke Exposure: Yes service: No Current occupational status: retired 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 1. Little interest or pleasure in doing things: not at all 2. Feeling down, depressed, or hopeless: not at all 3. Trouble falling or staying asleep, or sleeping too much: not at all 4. Feeling tired or having little energy: not at all 5. Poor appetite or overeating: not at all 6. Feeling bad about yourself - or that you are a failure or have let yourself or your family down: not at all 7. Trouble concentrating on things, such as reading the newspaper or watching television: not at all 8. Moving or speaking so slowly that other people could have noticed. Or the opposite - being so fidgety or restless that you have been moving around a lot more than usual: not at all 9. Thoughts that you would be better off or of hurting yourself in some way: not at all Total score: 0 Depression Screening Interpretation: Negative Depression Screening Done: Yes Source: Developed by Drs. Benjamín L. Richard, Anthony Frey and colleagues, with an educational [place] from [employer]. Thrive Questionnaire Date Thrive assessed: 08/13/23 I am a: Patient What is your living situation today?: I have a steady place to live Within the past 12 months, did the food you bought not last and you didn't have the money to get more?: Never true Within the past 12 months, did you worry whether your food would run out before you got money to buy more?: Never true Do you have trouble paying for medicines?: No Do you have trouble getting transportation to medical appointments?: No Do you have trouble paying your heating and electricity bill?: No Do you have trouble taking care of your child, family member or friend?: No Do you have trouble with day-to-day activities such as bathing, preparing meals, shopping, managing finances, etc.?: No Are you currently unemployed and looking for a job?: No Are you interested in more education?: No Currently or been in a relationship where the following occur: no concerns reported THRIVE Score: 0 AUDIT C Alcohol Use Questionnaire (AUDIT-C) 1. How often do you have a drink containing alcohol?: 2-4 times a month 2. How many drinks containing alcohol do you have on a typical day when you are drinking?: 1 or 2 Total Score: 2 JULIA-7 AMB Questionnaire JULIA-7 Date JULIA - 7 assessed: 08/13/23 Feeling nervous, anxious, or on edge: 0 = Not at all Not being able to stop or control worryin = Not at all Worrying too much about different things: 0 = Not at all Trouble relaxin = Not at all Being so restless that it is hard to sit still: 0 = Not at all Becoming easily annoyed or irritable: 0 = Not at all Feeling afraid as if something awful might happen: 0 = Not at all Total JULIA-7 score (0-4 normal; 5-9 mild; 10-14 moderate; 15-21 severe): 0 Source: Developed by Drs. Benjamín Ramos, Anthony Frey and colleagues, with an educational [place] from [employer]. Physical exam (Primary Care) Vital Signs: Last Vital Signs Pulse 62 08/13/23 10:17 BP 130/80 08/13/23 10:17 Pulse Ox 96 08/13/23 10:17 Oxygen Delivery Method Room Air 08/13/23 10:17 BMI result Body Mass Index 31.6 Tobacco/Smoking Status: Tobacco use Status Tobacco use date assessed 08/13/23 08/13/23 10:24 Patient Tobacco Use Status Former Tobacco user 08/13/23 10:24 Tobacco use type Cigarette 08/13/23 10:24 e-Cigarette/Vaping Use Never Used 08/13/23 10:24 PHQ-9: PHQ-9 Score PHQ-9: Total score 0 08/13/23 10:24 Depression Screening Interpretation: Negative Thrive Assessment: Date of Thrive Assessment Date Thrive assessed 08/13/23 08/13/23 10:24 Currently or been in a relationship where the following occur: no concerns reported Const General: alert; No acute distress HENMT Other: No ear wax TM intact but mild bulging with some mild haziness of the TM. Eyes Conjunctivae: conjunctivae normal Resp Auscultation: clear to auscultation bilaterally Cardio Rate: regular rate Rhythm: regular rhythm GI Inspection: Yes normal to inspection Extrem General: Yes normal to inspection and No edema Assessment and Plan Assessment & Plan (1) Allergic rhinitis: Code(s): J30.9 - Allergic rhinitis, unspecified Qualifiers: Allergic rhinitis trigger: other Allergic rhinitis seasonality: unspecified Qualified Code(s): J30.89 - Other allergic rhinitis (2) Otitis media: Code(s): H66.90 - Otitis media, unspecified, unspecified ear Plan: antibiotic sent in Medications: New azithromycin (Zithromax) For 250 mg dose pack: take 500 mg today (day 1), then 250 mg for 4 days (days 2-5) PO 6 tabs 0RF H66.90 - Otitis media, unspecified, unspecified ear Coding Level of Care Code Est Pt Level 3 (59891) Diagnoses Allergic rhinitis due to other allergic trigger, unspecified seasonality J30.89 Allergic rhinitis trigger: other Allergic rhinitis seasonality: unspecified Otitis media H66.90
[2023-08-13 10:17] VITALS: BP 130/80; PULSE 62; O2SAT 96; BMI 31.6
== END 2023-08-13 10:47 | disposition home or self-care (01) ==
PROVIDERS: PCP Internal Medicine; Visit Provider Internal Medicine
DX: J30.89 Other allergic rhinitis (principal); H66.90 Otitis media, unspecified, unspecified ear
CPT/HCPCS: 99213

== ENCOUNTER 2023-08-19 14:27 | Outpatient (REF) | payer MEDICARE, SELFPAY | END 2023-08-19 14:28 | disposition home or self-care (01) | LOC: HO.SH 14:27 | PROVIDERS: PCP Internal Medicine; Visit Provider Internal Medicine | DX: Z01.118 Encounter for examination of ears and hearing with other abnormal findings (principal); H90.3 Sensorineural hearing loss, bilateral | CPT/HCPCS: 92557; 92567 ==

== ENCOUNTER → 2023-08-21 10:44 | Outpatient (AMB) | payer MEDICARE, SELFPAY ==
[2023-08-21 12:04] VITALS: BP 120/82; PULSE 79; TEMP 36.9; O2SAT 97
--- NOTE | 2023-08-21 12:04 | AM.OFFWIN_ITS ---
Intake Vital Signs 08/21/23 12:04 Height 5 ft 4 in BP 120/82 Blood Pressure Location Rt brachial Position Sitting Pulse 79 Pulse Source Pulse Oximeter Temp 98.5 F Temp Source Oral Pulse Oximetry (%) 97 Oxygen Delivery Method Room Air Intake Visit Reasons: Sinus pressure headache Intake Note: pt is here for a runny nose and her right eye is runny with sinus pressure and headaches this started that pt has been dealing with for a long time pt just finished azithromycin and her sx started right back up Patient Tobacco Use Status: Former Tobacco user Allergies Penicillins [PENICILLINS] Allergy (Unknown, Verified 09/08/23 09:42) RASH,HIVES,SWELLING latex Allergy (Verified 09/08/23 09:42) Itching HPI Sinus pressure headache HPI Details Patient is a 73-year-old female comes to the walk-in clinic complaining of frontal headache/sinus pressure as well as watery and red right eye, associated with a runny nose, postnasal drip and reports that she had just completed azithromycin course, with no symptom resolution. She denies fever chills, dizziness or vertigo, weakness, myalgias or malaise, nausea vomiting or diarrhea, shortness of breath or chest pain, or other significant associated symptoms. History of allergic rhinitis. Reviewed past medical history with the patient [facility] Medical History (Updated 09/08/23 @ 10:12 by Sp Almanza MD) Hypertriglyceridemia Crush accident Elevated LFTs Medicare annual wellness visit, subsequent Skin tag Mild sleep apnea Congestion of both ears COVID-19 virus infection COVID-19 History of melanoma Osteopenia Lumbar degenerative disc disease Peripheral neuropathy Asthma Obesity (BMI 30-39.9) Hypercholesteremia Surgical History History of melanoma excision (~2014) History of bilateral oophorectomy Family History Father Lung cancer Mother Lung cancer Social History Housing: House Alcohol intake: current Alcohol intake frequency: holidays/special occasions only Comment: stuffy with alcohol Patient Tobacco Use Status: Former Tobacco user Tobacco use type: Cigarette Years Smoked: 2001 smoked for 10 years e-Cigarette/Vaping Use: Never Used Second Hand Smoke Exposure: Yes service: No Current occupational status: retired Current occupation: School Cafeteria - Left Handed Cognitive needs: No Hearing needs: No Vision needs: Yes (Glasses) Review of Systems Const All systems reviewed & are unremarkable except as noted in HPI and below Physical Exam Vital Signs: Last Vital Signs Temp 98.5 F 08/21/23 12:04 Pulse 79 08/21/23 12:04 BP 120/82 08/21/23 12:04 Pulse Ox 97 08/21/23 12:04 Oxygen Delivery Method Room Air 08/21/23 12:04 Const General: cooperative, healthy appearing, no acute distress, alert, awake, Physically active and well groomed; No comfortable, anxious, diaphoretic, ill appearing, intoxicated appearing, poor hygiene or tired appearing Nutritional Appearance: average body habitus Orientation/consciousness: patient oriented x3 Limitations: no limitations HEENT Head: Yes normal to inspection, Yes normocephalic and Yes atraumatic Ears: hearing grossly normal bilaterally, external ears normal, TM's normal bilaterally and EAC's normal General nose exam: Normal external nose present, Normal nares present, No nasal polyps present, Normal nasal mucous membranes and turbinates present, Normal septum present and No nasal discharge present Face and sinus: Yes face symmetric, No erythema, No edema and Yes sinus tenderness Mouth: Normal oral and palatal mucosa present, lip normal and tongue normal Throat: Yes uvula midline, No peritonsillar mass, No postnasal drainage, No uvular edema and No cobblestoning Eyes General: appearance normal, both eyes and all related structures Neck Neck: Yes normal visual inspection, Yes no lymphadenopathy, Yes trachea midline, Yes supple and No anterior neck swelling Chest Chest palpation & inspection: normal palpation of entire chest wall Resp Effort & Inspection: normal respiratory effort, able to speak in complete sentences, no audible wheezes, no cough, no grunting, not labored, no nasal flaring, no retractions and symmetric chest movement Auscultation: clear to auscultation bilaterally, no crackles, no rales, no rhonchi, no wheezes, lung sounds not diminished and No rub present Cardio Palpation: normal PMI Rate: regular rate Rhythm: regular rhythm Heart sounds: S1 normal heart sound present and S2 normal heart sound present Skin Other: Good color, warm and dry Neuro General: patient oriented x3 Psych Appearance: grossly normal Mental Status: mental status grossly normal Speech and movement: Normal speech and movement present Affect: normal affect Attitude: cooperative Thought process: Normal thought process present Insight: Good insight present (Psych) Judgement: Good judgement present (Psych) Assessment & Plan Assessment & Plan (1) Sinusitis: Code(s): J32.9 - Chronic sinusitis, unspecified Qualifiers: Sinusitis location: frontal Chronicity: subacute Qualified Code(s): J01.10 - Acute frontal sinusitis, unspecified Plan: Patient is a 73-year-old female with recent upper respiratory infection who is now is complaining of sinus pressure. We discussed how antibiotics do not shorten the length of time or appropriately treat viruses, however at this point she might be developing bacterial sinusitis. She had just completed azithromycin, so I started her on doxycycline course and wrote her for erythromycin ophthalmic ointment for the conjunctivitis. Supportive care discussed, including wiping eyes with moist compress. Results of flu COVID and RSV testing are also pending. She knows to follow up if symptoms persist or worsen Orders: Orders SARS-CoV2/FLU/RSV 08/21/23 R05.9 - Cough, unspecified Medications: New doxycycline hyclate 100 mg PO BID 14 caps 0RF 7 days erythromycin 0.5 inches ophthalmic (eye) QID 3.5 grams 0RF Coding Level of Care Code Est Pt Level 4 (05561) Diagnoses Subacute frontal sinusitis J01.10 Sinusitis location: frontal Chronicity: subacute
== END ==
PROVIDERS: PCP Internal Medicine; Visit Provider Physician Assistant Medical
DX: J01.10 Acute frontal sinusitis, unspecified (principal)
CPT/HCPCS: 99214

== ENCOUNTER 2023-08-21 15:23 | Outpatient (REF) | payer MEDICARE, SELFPAY ==
[2023-08-21 16:16] LABS: Influenza A PCR NEGATIVE (Negative); Influenza B PCR NEGATIVE (Negative); Resp Syncy Virus RNA Qual PCR NEGATIVE (Negative); SARS COV2 PCR INHOUSE NEGATIVE (Negative)
== END 2023-08-21 15:24 | disposition home or self-care (01) ==
LOC: HO.LNP 15:23
PROVIDERS: Visit Provider Physician Assistant Medical
DX: R05.9 Cough, unspecified (principal); J06.9 Acute upper respiratory infection, unspecified
CPT/HCPCS: 0241U

== ENCOUNTER 2023-08-25 09:22 | Outpatient (REF) | payer MEDICARE, SELFPAY ==
--- NOTE | ~2023-08-25 | XR_ITS ---
EXAMINATION: XR SINUSES CLINICAL INFORMATION: Otitis media, unspecified, unspecified air Patient states bilateral ear blockage. COMPARISON: None available. TECHNIQUE: 4 views of the paranasal sinuses FINDINGS: The right frontal sinus is hypoplastic, otherwise the paranasal sinuses are well aerated. No air-fluid levels. Probable trace mucosal thickening within the maxillary sinuses. No fractures are identified. No radiodense foreign bodies. XR/XR sinus min 3V IMPRESSION: Probable trace mucosal thickening within the maxillary sinuses. The right frontal sinus is hypoplastic.
[2023-08-25 10:14] LABS: MANUAL DIFF FLAG NO
[2023-08-25 10:32] LABS: Basophils Percent Auto 0.6 % (0-2); Eosinophils Absolute Auto 0.1 X10*3/uL (0.0-0.4); Eosinophils Percent Auto 1.5 % (0-4); Hemoglobin 14.6 g/dl (12.0-16.0); Imm Gran Abs Auto 0.02 X10*3/uL (0.00-0.03); Imm Gran Pct Auto 0.4 % (0.0-0.4); Lymphocytes Absolute Auto 2.1 X10*3/uL (1.2-4.9); Lymphocytes Percent Auto 38.8 % (20-40); Mean Corpuscular HGB Conc 33.2 g/dl (31.0-35.0); Mean Corpuscular Hemoglobin 30.2 pg (27.0-33.0); Mean Corpuscular Volume 91.1 fL (80.0-98.0); Mean Platelet Volume 9.3 fL (9.4-12.3); Monocytes Absolute Auto 0.3 X10*3/uL (0.1-1.2); Monocytes Percent Auto 6.3 % (2-11); Neutrophils Absolute Auto 2.9 x10*3/uL (2.0-8.3); Neutrophils Percent Auto 52.4 % (45-73); Platelet Count 170 X10*3/uL (160-400); Red Blood Count 4.83 X10*6/uL (4.20-5.50); Red Cell Distribution Width 12.5 % (11.0-16.0); White Blood Count 5.4 X10*3/uL (4.8-10.8)
[2023-08-25 11:19] LABS: Alanine Aminotransferase 14 U/L (0-31); Albumin Level 4.2 g/dL (3.5-5.0); Alkaline Phosphatase 98 U/L (39-117); Anion Gap 11 (12-20); Aspartate Amino Transferase 16 U/L (5-31); Bilirubin Total 0.5 mg/dL (0.0-1.0); Blood Urea Nitrogen 18 mg/dL (9-16); Calcium 9.5 mg/dL (8.4-10.2); Carbon Dioxide 30 mmol/L (22-29); Chloride 102 mmol/L (96-108); Cholesterol 182 mg/dL (<200); Estimated Glomerular Filt Rate > 60; Glucose Random 111 mg/dL (60-115); HDL Cholesterol 57 mg/dL (>40); LDL Cholesterol Calculated 95 mg/dL (<100); Potassium 4.2 mmol/L (3.3-5.1); Sodium 139 mmol/L (135-145); Total Protein 7.3 g/dL (6.5-8.0); Triglycerides 151 mg/dL (<150)
[2023-08-25 11:21] LABS: Free T4 (Free Thyroxine) 0.88 ng/dL (0.71-1.85); Thyroid Stimulating Hormone 4.92 uIU/mL (0.32-4.0); Vitamin D 25-OH Total 77.9 ng/mL (>30)
[2023-08-25 11:24] LABS: Estimated Average Glucose 120 mg/dL; Hemoglobin A1c % 5.8 % (<6.0)
[2023-08-25 12:31] LABS: Folate 11.4 ng/mL (> or = 4.0); Vitamin B12 > 2000 pg/mL (200-900)
== END 2023-08-25 09:23 | disposition home or self-care (01) ==
LOC: HO.HMGCLDS 09:22
PROVIDERS: PCP Internal Medicine; Visit Provider Internal Medicine
DX: E78.00 Pure hypercholesterolemia, unspecified (principal); H66.90 Otitis media, unspecified, unspecified ear
CPT/HCPCS: 36415; 70220; 80053; 80061; 82306; 82607; 82746; 83036; 84439; 84443; 85025

== ENCOUNTER 2023-09-08 09:37 | Outpatient (AMB) | payer MEDICARE, SELFPAY ==
--- NOTE | 2023-09-08 09:41 | MHC.PC.OV ---
Vital Signs 09/08/23 09:42 Height 5 ft 4 in Weight 182 lb BMI 31.2 BP 136/68 Blood Pressure Location Lt brachial Position Sitting Pulse 66 Pulse Source Pulse Oximeter Pulse Oximetry (%) 95 Oxygen Delivery Method Room Air Intake Visit Reasons: 5 month f/u Allergies Penicillins [PENICILLINS] Allergy (Unknown, Verified 09/08/23 09:42) RASH,HIVES,SWELLING latex Allergy (Verified 09/08/23 09:42) Itching Medication List - Last Reconciled 09/08/23 by Sp Almanza MD albuterol sulfate 90 mcg/actuation (ProAir HFA) 2 puffs inhalation Q4-6H cholecalciferol (vitamin D3) 125 mcg PO DAILY clotrimazole-betamethasone 1-0.05 % 1 appl topical BID cyanocobalamin (vitamin B-12) 1,000 mcg PO DAILY simvastatin 20 mg PO DAILY Tobacco use date assessed: 09/08/23 Fall risk assessment: No Falls in past year Last assessed Fall Risk: 09/08/23 Dental Screening Dental Screen Date: 09/08/23 Did you have a dental visit in the last 12 months?: Yes Did you have a dental problem in the last 6 months where you did not have access to dental care?: No Was dental information given to patient?: Patient has dentist HPI 5 month f/u HPI Details 73-year-old obese female with hypercholesterolemia impaired glucose tolerance gout coming in for follow-up last seen in July 2023 for the otitis media. Patient's colonoscopy is up-to-date as well as mammogram and bone density. Urgent Center note July 2023 for sinus pressure and placed on doxycycline as well as erythromycin ointment for the eye. Patient had a hearing test and was advised ENT referral for the fluctuating hearing loss. PAtient stopped all med except for simva and Vit d - advsied to decrease b 12. complains of R ankle pain [facility] Medical History (Updated 09/08/23 @ 10:12 by Sp Almanza MD) Hypertriglyceridemia Crush accident Elevated LFTs Medicare annual wellness visit, subsequent Skin tag Mild sleep apnea Congestion of both ears COVID-19 virus infection COVID-19 History of melanoma Osteopenia Lumbar degenerative disc disease Peripheral neuropathy Asthma Obesity (BMI 30-39.9) Hypercholesteremia Surgical History History of melanoma excision (~2014) History of bilateral oophorectomy Family History Father Lung cancer Mother Lung cancer Social History Housing: House Alcohol intake: current Alcohol intake frequency: holidays/special occasions only Comment: stuffy with alcohol Patient Tobacco Use Status: Former Tobacco user Tobacco use type: Cigarette Years Smoked: 2001 smoked for 10 years e-Cigarette/Vaping Use: Never Used Second Hand Smoke Exposure: Yes service: No Current occupational status: retired 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 1. Little interest or pleasure in doing things: not at all 2. Feeling down, depressed, or hopeless: not at all 3. Trouble falling or staying asleep, or sleeping too much: not at all 4. Feeling tired or having little energy: not at all 5. Poor appetite or overeating: not at all 6. Feeling bad about yourself - or that you are a failure or have let yourself or your family down: not at all 7. Trouble concentrating on things, such as reading the newspaper or watching television: not at all 8. Moving or speaking so slowly that other people could have noticed. Or the opposite - being so fidgety or restless that you have been moving around a lot more than usual: not at all 9. Thoughts that you would be better off or of hurting yourself in some way: not at all Total score: 0 Depression Screening Interpretation: Negative Depression Screening Done: Yes Source: Developed by Drs. Benjamín Ramos, Alem Calabrese, Anthony Nicolas and colleagues, with an educational [place] from [employer]. Thrive Questionnaire Date Thrive assessed: 09/08/23 I am a: Patient What is your living situation today?: I have a steady place to live Within the past 12 months, did the food you bought not last and you didn't have the money to get more?: Never true Within the past 12 months, did you worry whether your food would run out before you got money to buy more?: Never true Do you have trouble paying for medicines?: No Do you have trouble getting transportation to medical appointments?: No Do you have trouble paying your heating and electricity bill?: No Do you have trouble taking care of your child, family member or friend?: No Do you have trouble with day-to-day activities such as bathing, preparing meals, shopping, managing finances, etc.?: No Are you currently unemployed and looking for a job?: No Are you interested in more education?: No Currently or been in a relationship where the following occur: no concerns reported THRIVE Score: 0 AUDIT C Alcohol Use Questionnaire (AUDIT-C) 1. How often do you have a drink containing alcohol?: 2-4 times a month 2. How many drinks containing alcohol do you have on a typical day when you are drinking?: 1 or 2 Total Score: 2 JULIA-7 AMB Questionnaire JULIA-7 Date JULIA - 7 assessed: 09/08/23 Feeling nervous, anxious, or on edge: 0 = Not at all Not being able to stop or control worryin = Not at all Worrying too much about different things: 0 = Not at all Trouble relaxin = Not at all Being so restless that it is hard to sit still: 0 = Not at all Becoming easily annoyed or irritable: 0 = Not at all Feeling afraid as if something awful might happen: 0 = Not at all Total JULIA-7 score (0-4 normal; 5-9 mild; 10-14 moderate; 15-21 severe): 0 Source: Developed by Drs. Benjamín Ramos, Alem Calabrese, Anthony Nicolas and colleagues, with an educational [place] from [employer]. Physical exam (Primary Care) Vital Signs: Last Vital Signs Pulse 66 09/08/23 09:42 BP 136/68 09/08/23 09:42 Pulse Ox 95 09/08/23 09:42 Oxygen Delivery Method Room Air 09/08/23 09:42 BMI result Body Mass Index 31.2 Tobacco/Smoking Status: Tobacco use Status Tobacco use date assessed 09/08/23 09/08/23 09:48 Patient Tobacco Use Status Former Tobacco user 04/17/24 09:48 Tobacco use type Cigarette 09/08/23 09:48 e-Cigarette/Vaping Use Never Used 09/08/23 09:48 PHQ-9: PHQ-9 Score PHQ-9: Total score 0 09/08/23 09:48 Depression Screening Interpretation: Negative Thrive Assessment: Date of Thrive Assessment Date Thrive assessed 09/08/23 09/08/23 09:48 Currently or been in a relationship where the following occur: no concerns reported Const General: alert; No acute distress Eyes Conjunctivae: conjunctivae normal Resp Auscultation: clear to auscultation bilaterally Cardio Rate: regular rate Rhythm: regular rhythm GI Inspection: Yes normal to inspection Extrem General: Yes normal to inspection and No edema Assessment and Plan Assessment & Plan (1) Hearing difficulty: Code(s): H91.90 - Unspecified hearing loss, unspecified ear Plan: Patient has been advised to see ear nose and throat scheduled to see Dr. Ching end of September (2) Impaired glucose tolerance: Code(s): R73.02 - Impaired glucose tolerance (oral) Plan: Decrease the amount of carbohydrate intake, pasta, bread, rice and potatoes are all sugar and that is aside from all the sweet stuff, remember that fruits are good but they are Sweet also. (3) Hypercholesteremia: Code(s): E78.00 - Pure hypercholesterolemia, unspecified Plan: Avoid fried foods, chicken skin, eggs, butter margarine, pastries and meat. Be it pork or beef they have a lot of cholesterol LDL goal of less than 130 and triglyceride of less than 150. 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
[2023-09-08 09:42] VITALS: BP 136/68; PULSE 66; O2SAT 95; BMI 31.2
== END 2023-09-08 10:16 | disposition home or self-care (01) ==
PROVIDERS: PCP Internal Medicine; Visit Provider Internal Medicine
DX: H91.90 Unspecified hearing loss, unspecified ear (principal); R73.02 Impaired glucose tolerance (oral); E78.00 Pure hypercholesterolemia, unspecified; M25.571 Pain in right ankle and joints of right foot; R09.81 Nasal congestion; R25.2 Cramp and spasm; G62.9 Polyneuropathy, unspecified
CPT/HCPCS: 99214

== ENCOUNTER 2023-10-04 10:34 | Outpatient (AMB) | payer MEDICARE, SELFPAY ==
--- NOTE | 2023-10-04 10:57 | MHC.OFFWIV ---
Intake Vital Signs 10/04/23 10:58 Height 5 ft 4 in Weight 182 lb BMI 31.2 BP 130/82 Blood Pressure Location Rt brachial Position Sitting Pulse 70 Pulse Source Pulse Oximeter Temp 98.0 F Temp Source Oral Pulse Oximetry (%) 96 Oxygen Delivery Method Room Air Intake Visit Reasons: EST/allergic reaction (yard work) hived (lobby) Intake Note: pt is here for allergic reaction due to yard work Patient Tobacco Use Status: Former Tobacco user Allergies Penicillins [PENICILLINS] Allergy (Unknown, Verified 10/04/23 11:21) RASH,HIVES,SWELLING latex Allergy (Verified 10/04/23 11:21) Itching Medication List - Last Reconciled 10/04/23 by Ever Vogel MD albuterol sulfate 90 mcg/actuation (ProAir HFA) 2 puffs inhalation Q4-6H cholecalciferol (vitamin D3) 125 mcg PO DAILY clotrimazole-betamethasone 1-0.05 % 1 appl topical BID cyanocobalamin (vitamin B-12) 1,000 mcg PO DAILY magnesium oxide 400 mg PO DAILY simvastatin 20 mg PO DAILY Do you need a note to return to daycare/school/sports/work: No HPI EST/allergic reaction (yard work) hived (lobby) HPI Details 73 yr old female presents to the office for a sick visit. Patient was working in the yard over the weekend. She has developed a rash over the arms, legs. Sx of itchiness. History of allergies [facility] Medical History (Updated 09/08/23 @ 10:12 by Sp Almanza MD) Hypertriglyceridemia Crush accident Elevated LFTs Medicare annual wellness visit, subsequent Skin tag Mild sleep apnea Congestion of both ears COVID-19 virus infection COVID-19 History of melanoma Osteopenia Lumbar degenerative disc disease Peripheral neuropathy Asthma Obesity (BMI 30-39.9) Hypercholesteremia Surgical History History of melanoma excision (~2014) History of bilateral oophorectomy Family History Father Lung cancer Mother Lung cancer Social History Housing: House Alcohol intake: current Alcohol intake frequency: holidays/special occasions only Comment: stuffy with alcohol Patient Tobacco Use Status: Former Tobacco user Tobacco use type: Cigarette Years Smoked: 2001 smoked for 10 years e-Cigarette/Vaping Use: Never Used Second Hand Smoke Exposure: Yes service: No Current occupational status: retired Current occupation: School Cafeteria - Left Handed Cognitive needs: No Hearing needs: No Vision needs: Yes (Glasses) Physical Exam Vital Signs: Last Vital Signs Temp 98.0 F 10/04/23 10:58 Pulse 70 10/04/23 10:58 BP 130/82 10/04/23 10:58 Pulse Ox 96 10/04/23 10:58 Oxygen Delivery Method Room Air 10/04/23 10:58 BMI result Body Mass Index 31.2 Skin Other: Arms, lower back, ankles: Papular rash, no overlying scales, no vesicles. Assessment & Plan Assessment & Plan (1) Rash: Code(s): R21 - Rash and other nonspecific skin eruption Plan: Photo dermatitis or contact dermatitis. Prednisone taper dose given. if sx do not improve to follow up here. Coding Level of Care Code Est Pt Level 3 (56779) Diagnoses Rash R21
[2023-10-04 10:58] VITALS: BP 130/82; PULSE 70; TEMP 36.7; O2SAT 96; BMI 31.2
== END 2023-10-04 11:41 | disposition home or self-care (01) ==
PROVIDERS: PCP Internal Medicine; Visit Provider Internal Medicine
DX: R21 Rash and other nonspecific skin eruption (principal)
CPT/HCPCS: 99213

== ENCOUNTER 2023-10-27 10:37 | Outpatient (REF) | payer MEDICARE, SELFPAY ==
[2023-10-28 16:13] LABS: Lyme Abs Screen <0.90 index
[2023-11-01 16:23] LABS: Immunoglobulin E 7 kU/L (<OR=114)
== END 2023-10-27 10:38 | disposition home or self-care (01) ==
LOC: HO.10HDL 10:37
PROVIDERS: Referring Provider Otolaryngology; Visit Provider Internal Medicine
DX: G62.9 Polyneuropathy, unspecified (principal); J30.89 Other allergic rhinitis
CPT/HCPCS: 36415; 82785; 86003; 86617; 86618

== ENCOUNTER 2023-12-06 22:00 | Emergency (ER) | payer OTHER, SELFPAY ==
--- NOTE | ~2023-12-06 | CT_ITS ---
EXAMINATION: CT brain and CT cervical spine without contrast. CLINICAL INDICATION: Injury. Pain. COMPARISON: None. TECHNIQUE: 5 mm thin axial and reformatted 2 mm thin sagittal and coronal images of brain were obtained. Subsequently axial 3 mm thin and reformatted 2 mm thin sagittal and coronal images of cervical spine were obtained. DLP 1091 mGy/cm. FINDINGS: There is no acute intra-axial, extra-axial bleed, masses or midline shift. There is no acute infarction evolution. There is no edema. The escobedo to white matter differentiation is maintained normal. There is no scalp soft tissue abnormality. Bilateral paranasal sinuses and mastoid air cells are well-aerated. Cervical spine: There is normal cervical lordosis. The vertebral heights, alignment and disc heights are normal. There is no visible acute fracture, dislocation or subluxation. The craniovertebral junction and the C1-C2 alignment is normal. There is degenerative facet joint hypertrophy right C4-C5, C5-C6 disc levels. The prevertebral and paravertebral soft tissues are normal. There is mild bilateral apical pleural thickening and scarring. CT/CT cervical spine wo IV con IMPRESSION: No acute intracranial process seen. No visible acute fracture or dislocation.
--- NOTE | ~2023-12-06 | XR_ITS ---
EXAMINATION: XR KNEE, RIGHT CLINICAL INFORMATION: Trauma. COMPARISON: None available. TECHNIQUE: Four views of the right knee. FINDINGS: No acute fracture or subluxation. Mild tricompartmental degenerative changes. No joint effusion. XR/XR knee RT 3V IMPRESSION: 1. No acute fracture or subluxation. 2. Mild tricompartmental degenerative changes.
--- NOTE | ~2023-12-06 | XR_ITS ---
EXAMINATION: XR HAND/WRIST, LEFT CLINICAL INFORMATION: Trauma. COMPARISON: Radiograph left wrist 04/29/2020. TECHNIQUE: Four views of the left hand and wrist. FINDINGS: No acute fracture or subluxation. Moderate multifocal degenerative osteoarthritis. No significant soft tissue abnormality. XR/XR hand wrist LT IMPRESSION: 1. No acute fracture or subluxation. 2. Moderate multifocal degenerative osteoarthritis.
--- NOTE | ~2023-12-06 | XR_ITS ---
EXAMINATION: XR KNEE, LEFT CLINICAL INFORMATION: Trauma. COMPARISON: None available. TECHNIQUE: Four views of the left knee. FINDINGS: No acute fracture or subluxation. Mild tricompartmental degenerative osteoarthritis. No abnormal soft tissue calcifications. No joint effusion. XR/XR knee LT 3V IMPRESSION: No acute fracture or subluxation. Mild tricompartmental degenerative osteoarthritis.
--- NOTE | ~2023-12-06 | CT_ITS ---
EXAMINATION: CT brain and CT cervical spine without contrast. CLINICAL INDICATION: Injury. Pain. COMPARISON: None. TECHNIQUE: 5 mm thin axial and reformatted 2 mm thin sagittal and coronal images of brain were obtained. Subsequently axial 3 mm thin and reformatted 2 mm thin sagittal and coronal images of cervical spine were obtained. DLP 1091 mGy/cm. FINDINGS: There is no acute intra-axial, extra-axial bleed, masses or midline shift. There is no acute infarction evolution. There is no edema. The escobedo to white matter differentiation is maintained normal. There is no scalp soft tissue abnormality. Bilateral paranasal sinuses and mastoid air cells are well-aerated. Cervical spine: There is normal cervical lordosis. The vertebral heights, alignment and disc heights are normal. There is no visible acute fracture, dislocation or subluxation. The craniovertebral junction and the C1-C2 alignment is normal. There is degenerative facet joint hypertrophy right C4-C5, C5-C6 disc levels. The prevertebral and paravertebral soft tissues are normal. There is mild bilateral apical pleural thickening and scarring. CT/CT head/brain wo IV con IMPRESSION: No acute intracranial process seen. No visible acute fracture or dislocation.
--- NOTE | ~2023-12-06 | XR_ITS ---
EXAMINATION: XR HAND/WRIST, RIGHT CLINICAL INFORMATION: Trauma. COMPARISON: Radiograph right hand 06/20/2020. TECHNIQUE: Four views of the right hand and wrist. FINDINGS: No acute fracture or subluxation. Moderate multifocal degenerative osteoarthritis. No significant soft tissue abnormality. XR/XR hand wrist RT IMPRESSION: 1. No acute fracture or subluxation. 2. Moderate multifocal degenerative osteoarthritis.
[2023-12-06 19:02] VITALS: BP 133/76; PULSE 75; RESP 18; TEMP 36.5; O2SAT 94; BMI 31.5
--- NOTE | 2023-12-06 19:03 | ED.GENADULT ---
HPI - General Adult General Chief complaint: Fall Stated complaint: seeking R hand x ray fall today at store Time Seen by Provider: 12/06/23 22:55 Source: patient Mode of arrival: ambulatory Limitations: no limitations History of Present Illness HPI narrative: Patient is a 73-year-old female who presents to the emergency department for evaluation after mechanical trip and fall. Reports that she was walking outside of a grocery store there was a small pipe sticking up from the ground and she tripped over this landing forward on her bilateral hands and knees. She states that she subsequently lunged forward gently scraping her chin against the ground, but denies overt head strike and denies any loss of consciousness. Pain is primarily to the right hand, has increased pain with flexion of the fingers. She does admit that she has significant arthritis. Denies any numbness or tingling to her extremities. Denies any use of anticoagulants or known coagulation disorders Related Data Home Medications ?Medication ?Instructions ?Recorded ?Confirmed cholecalciferol (vitamin D3) 125 125 mcg PO DAILY 07/29/20 10/04/23 mcg (5,000 unit) capsule cyanocobalamin (vitamin B-12) 1,000 mcg PO DAILY 07/29/20 10/04/23 1,000 mcg capsule Previous Rx's ?Medication ?Instructions ?Recorded albuterol sulfate 90 mcg/actuation 2 puff inhalation Q4-6H #8.5 grams 06/25/22 aerosol inhaler (ProAir HFA) clotrimazole-betamethasone 1 1 appl topical BID #15 grams 06/24/23 %-0.05 % topical cream simvastatin 20 mg tablet 20 mg PO DAILY #90 tabs 07/28/23 magnesium oxide 400 mg (241.3 mg 400 mg PO DAILY #30 tabs 09/08/23 magnesium) tablet prednisone 10 mg tablet 10 mg PO DAILY #28 tabs 10/04/23 Allergies Allergy/AdvReac Type Severity Reaction Status Date / Time Penicillins [PENICILLINS] Allergy Unknown RASH,HIVES, Verified 12/06/23 19:06 SWELLING latex Allergy Itching Verified 12/06/23 19:06 Review of Systems Review of Systems: Yes all other systems are reviewed and are negative PMFSH Past Medical History Attestation statement: The following information was validated with the patient. Source: old records reviewed Medical History Hypertriglyceridemia Crush accident Elevated LFTs Medicare annual wellness visit, subsequent Skin tag Mild sleep apnea Congestion of both ears COVID-19 virus infection COVID-19 History of melanoma Osteopenia Lumbar degenerative disc disease Peripheral neuropathy Asthma Obesity (BMI 30-39.9) Hypercholesteremia Surgical History History of melanoma excision (~2014) History of bilateral oophorectomy Family History Family History Father Lung cancer Mother Lung cancer Social History Social History Housing: House Alcohol intake: current Alcohol intake frequency: holidays/special occasions only Comment: stuffy with alcohol Patient Tobacco Use Status: Former Tobacco user Tobacco use type: Cigarette Years Smoked: 2001 smoked for 10 years e-Cigarette/Vaping Use: Never Used Second Hand Smoke Exposure: Yes Advance Directives: No Advance Directives Information Provided: Yes Do you have a plan to hurt others: No Plan service: No Current occupational status: retired Current occupation: School Cafeteria - Left Handed Cognitive needs: No Hearing needs: No Vision needs: Yes (Glasses) Physical Exam ED Vital Signs: Vital Signs - 24 hr 12/06/23 19:02 12/06/23 22:29 12/07/23 00:08 Temperature 97.7 F 97.6 F 97.6 F Pulse Rate 75 61 61 Respiratory Rate 18 16 16 Blood Pressure 133/76 133/77 133/77 Pulse Oximetry 94 98 98 Oxygen Delivery Method Room Air Room Air Room Air BMI result Body Mass Index 31.5 Appearance: Alert.?Oriented to person, place and time. No acute distress.?Normal affect. Head: Normocephalic, atraumatic Eyes: Pupils equal, round and reactive to light.? EOMI. No nystagmus. ENT: Pharynx normal.??TM normal bilaterally Neck: Normal inspection.? Neck supple.??No midline cervical spine tenderness, step-offs, deformities CVS: Heart sounds normal. Normal heart rate and rhythm.? Pulses normal.?? Respiratory: No respiratory distress.? Lung sounds clear to auscultation bilaterally?? Abdomen: Soft and non-tender. Normoactive bowel sounds. Skin: Skin warm and dry.? Normal skin color.? Extremities: No lower extremity edema.? Superficial abrasions to the bilateral knees. Left hand is unremarkable. Right hand with ecchymosis and mild localized swelling over the palmar aspect of the 3rd and 4th digit, with mild decreased flexion. Bilateral wrists and elbows with full range of motion Neuro: Moves all extremities spontaneously. Sensation intact bilaterally. CN II-XII intact. No focal neuro deficits. Ambulates with normal steady gait. Course Course Course Narrative: RME performed by Yanni Beckett PA-C. Patient is a 73 year old assigned female at presenting to the emergency department with bilateral hand and knee pain after a trip and fall in a parking lot. Detailed physical exam and review of systems are deferred to the table runner. Imaging ordered. Patient placed back in the waiting room pending room availability and results. Medical Decision Making Medical Decision Making MDM Narrative: Patient is a 73-year-old female with past medical history of hyperlipidemia, depression, obesity, arthritis who presents emergency department for evaluation of bilateral upper and lower extremity pains after a mechanical trip and fall as per HPI. All extremities are neurovascularly intact distally. Imaging was obtained prior to my assumption of care, XR of the bilateral hands, bilateral wrists, and bilateral knees are without evidence of acute fracture dislocation, there is however evidence of degenerative changes consistent with her history of arthritis. CT of the head and cervical spine was obtained, no evidence of ICH, SDH, fracture, subluxation. She has no focal neurological deficits. She has ambulatory with a steady gait. Discussed conservative treatment, outpatient follow-up with primary care provider, worrisome signs and symptoms that would warrant re-evaluation emergency department including monitoring for signs of concussion setting of very mild head injury. She verbalized understanding. She is here with her sister who also verbalizes understanding. Stable for discharge home Differential Diagnosis Differential Diagnoses: The differential diagnosis associated with the presentation includes (See narrative above) Admission/Observation Consideration of admission/observation: Escalation of care including admission/observation considered (See narrative above) Independent Interpretation I performed an independent interpretation of an: Plain X-Ray (No acute fracture dislocation of the bilateral knees or hand/wrist) Radiology Impression Discussion of test interpretation with radiology: I have reviewed the radiologist's reading. Radiologist Impression: CT/CT cervical spine wo IV con IMPRESSION: No acute intracranial process seen. No visible acute fracture or dislocation. XR/XR hand wrist LT IMPRESSION: 1. No acute fracture or subluxation. 2. Moderate multifocal degenerative osteoarthritis. XR/XR knee LT 3V IMPRESSION: No acute fracture or subluxation. Mild tricompartmental degenerative osteoarthritis. XR/XR hand wrist RT IMPRESSION: 1. No acute fracture or subluxation. 2. Moderate multifocal degenerative osteoarthritis. XR/XR knee RT 3V IMPRESSION: 1. No acute fracture or subluxation. 2. Mild tricompartmental degenerative changes. Independent Historian Clinical information obtained from an independent historian. History obtained from or confirmed by: Other (Sister) External Record Review External record reviewed: Outpatient record Prescription Management I considered prescription management with: Pain Medication Discharge Plan Discharge Clinical Impression: Osteoarthritis, Fall Knee contusion Qualifiers: Encounter type: initial encounter Laterality: unspecified laterality Qualified Code(s): S80.00XA - Contusion of unspecified knee, initial encounter Contusion of hand(s) Qualifiers: Encounter type: initial encounter Patient Disposition: Home, Self-Care Instructions: Fall Prevention for Older Adults (ED), R.I.C.E. Treatment (ED) Additional Instructions: As discussed, x-rays obtained today your bilateral hands, bilateral wrists, and bilateral knees did not show any evidence of fracture or dislocation. You have arthritis that is noticed within the joints. A CT scan of your head and neck was obtained which was without any acute injury. You can take Tylenol 500 mg, 2 tablets (1,000mg) every 4-6 hours as needed for pain, but not to exceed 3 doses daily (3,000mg). Be sure to get rest, apply ice to the areas of pain for 10-15 minutes 3-4 times daily, elevate your extremities to assist with decreasing swelling and pain. Follow-up with your primary care provider. Return back to emergency department any new or worsening symptoms or concerns. ? Prescriptions: No Action albuterol sulfate [ProAir HFA] 90 mcg/actuation HFA aerosol inhaler 2 puff inhalation Q4-6H Qty: 8.5 0RF simvastatin 20 mg tablet 20 mg PO DAILY Qty: 90 2RF cholecalciferol (vitamin D3) 125 mcg (5,000 unit) capsule 125 mcg PO DAILY cyanocobalamin (vitamin B-12) 1,000 mcg capsule 1,000 mcg PO DAILY magnesium oxide 400 mg (241.3 mg magnesium) tablet 400 mg PO DAILY Qty: 30 0RF clotrimazole-betamethasone 1-0.05 % cream 1 appl topical BID Qty: 15 0RF prednisone 10 mg tablet 10 mg PO DAILY Qty: 28 0RF Rx Instructions: 6 pills by mouth day 1, 6 pills by mouth day 2, 5 pills by mouth day 3, 4 pills by mouth day 4, 3 pills by mouth day 5, 2 pills by mouth day 6, 1 pill by mouth day 7 and 1 pill by mouth day 8. Referrals: Sp Almanza MD [Primary Care Provider] - Interventions: ED Discharge Assessment Last Done: 12/07/23 00:08 Discharge Date/Time: 12/07/23 00:08 Print Language: [place] Islander
[2023-12-06 22:29] VITALS: BP 133/77; PULSE 61; RESP 16; TEMP 36.4; O2SAT 98
[2023-12-07 00:08] VITALS: BP 133/77; PULSE 61; RESP 16; TEMP 36.4; O2SAT 98
== END 2023-12-07 00:08 | disposition home or self-care (01) ==
PROVIDERS: Emergency Provider Emergency Medicine; PCP Internal Medicine
DX: S80.00XA Contusion of unspecified knee, initial encounter (principal); S60.222A Contusion of left hand, initial encounter; S60.221A Contusion of right hand, initial encounter; M25.562 Pain in left knee; M25.561 Pain in right knee; M25.532 Pain in left wrist; M25.531 Pain in right wrist; X58.XXXA Exposure to other specified factors, initial encounter; W01.0XXA Fall on same level from slipping, tripping and stumbling without subsequent striking against object, initial encounter; Y93.01 Activity, walking, marching and hiking; Y92.481 Parking lot as the place of occurrence of the external cause; Y99.8 Other external cause status; Z79.899 Other long term (current) drug therapy
CPT/HCPCS: 70450; 72125; 73110; 73130; 73562; 99283; 99284

== ENCOUNTER 2024-01-21 10:42 | Outpatient (AMB) | payer MEDICARE, SELFPAY ==
--- NOTE | 2024-01-21 10:50 | A.OFFPC_ITS ---
Vital Signs 01/21/24 10:51 Height 5 ft 4 in Weight 183 lb 2 oz BMI 31.4 BP 130/68 Blood Pressure Location Lt brachial Position Sitting Pulse 70 Pulse Source Pulse Oximeter Pulse Oximetry (%) 96 Oxygen Delivery Method Room Air Intake Visit Reasons: leg cramps Intake Note: Patient is here to follow up on cramping of both legs . Civil Drafting Technician Required: No Gourmet Coffee Attendant: Not Required per policy Accompanied by: Self / Same As Patient Allergies Penicillins [PENICILLINS] Allergy (Unknown, Verified 01/21/24 10:51) RASH,HIVES,SWELLING latex Allergy (Verified 01/21/24 10:51) Itching Tobacco use date assessed: 01/21/24 Fall risk assessment: No Falls in past year Last assessed Fall Risk: 01/21/24 Dental Screening Dental Screen Date: 09/08/23 HPI leg cramps HPI Details 73-year-old obese female with impaired g lucose tolerance hypercholesterolemia peripheral neuropathy coming in for follow-up. Last seen in August 2023. Mammogram bone density and colonoscopy all up-to-date. Review of the notes was in the ER in 12/06/2023 for fall having right hand pain x-ray done on the knee and the left hand negative. Urgent care visit in September for working in the [employer] developing hives. Prednisone given. asthma - stable-.m c omplains of sweating PFSH Medical History Hypertriglyceridemia Crush accident Elevated LFTs Medicare annual wellness visit, subsequent Skin tag Mild sleep apnea Congestion of both ears COVID-19 virus infection COVID-19 History of melanoma Osteopenia Lumbar degenerative disc disease Peripheral neuropathy Asthma Obesity (BMI 30-39.9) Hypercholesteremia Surgical History History of melanoma excision (~2014) History of bilateral oophorectomy Family History Father Lung cancer Mother Lung cancer Social History Housing: House Alcohol intake: current Alcohol intake frequency: holidays/special occasions only Comment: stuffy with alcohol Patient Tobacco Use Status: Former Tobacco user Tobacco use type: Cigarette Years Smoked: 2001 smoked for 10 years e-Cigarette/Vaping Use: Never Used Second Hand Smoke Exposure: Yes service: No Current occupational status: retired Current occupation: School Cafeteria - Left Handed Cognitive needs: No Hearing needs: No Vision needs: Yes (Glasses) Questionnaire Thrive Questionnaire Date Thrive assessed: 09/08/23 JULIA-7 AMB Questionnaire JULIA-7 Date JULIA - 7 assessed: 09/08/23 Source: Developed by Drs. Benjamín Ramos, Alem Calabrese, Anthony Nicolas and colleagues, with an educational [place] from [employer]. Physical exam (Primary Care) Vital Signs: Last Vital Signs Pulse 70 01/21/24 10:51 BP 130/68 01/21/24 10:51 Pulse Ox 96 01/21/24 10:51 Oxygen Delivery Method Room Air 01/21/24 10:51 BMI result Body Mass Index 31.4 Tobacco/Smoking Status: Tobacco use Status Tobacco use date assessed 01/21/24 01/21/24 10:53 Patient Tobacco Use Status Former Tobacco user 01/21/24 10:53 Tobacco use type Cigarette 01/21/24 10:53 e-Cigarette/Vaping Use Never Used 01/21/24 10:53 Thrive Assessment: Date of Thrive Assessment Date Thrive assessed 09/08/23 01/21/24 10:53 Const General: alert; No acute distress Eyes Conjunctivae: conjunctivae normal Resp Auscultation: clear to auscultation bilaterally Cardio Rate: regular rate Rhythm: regular rhythm GI Inspection: Yes normal to inspection Extrem General: Yes normal to inspection and No edema Assessment and Plan Assessment & Plan (1) Peripheral neuropathy: Comment: Severe axonal motor or peripheral neuropathy with an element of lumbar radiculopathy June 2019, PT December 2019 Code(s): G62.9 - Polyneuropathy, unspecified Plan: Continuing with keeping active. (2) Osteoarthritis: Comment: Hand and knees Code(s): M19.90 - Unspecified osteoarthritis, unspecified site Plan: Keep active and keep well hydrated. (3) Impaired glucose tolerance: Code(s): R73.02 - Impaired glucose tolerance (oral) Plan: Decrease the amount of carbohydrate intake, pasta, bread, rice and potatoes are all sugar and that is aside from all the sweet stuff, remember that fruits are good but they are Sweet also. (4) Hypercholesteremia: Code(s): E78.00 - Pure hypercholesterolemia, unspecified Plan: Avoid fried foods, chicken skin, eggs, butter margarine, pastries and meat. Be it pork or beef they have a lot of cholesterol simvastatin 20 mg once a day LDL goal of less than 130 and triglyceride of less than 150 (5) Obesity (BMI 30-39.9): Code(s): E66.9 - Obesity, unspecified Plan: Diet and exercise Orders: Orders Hemoglobin A1c 2 Months R73.02 - Impaired glucose tolerance (oral) Lipid Panel 2 Months E78.00 - Pure hypercholesterolemia, unspecified Thyroid Stimulating Hormone 2 Months R79.89 - Other specified abnormal findings of blood chemistry Free T4 (Free Thyroxine) 2 Months R79.89 - Other specified abnormal findings of blood chemistry Comprehensive Met. Panel 2 Months R73.02 - Impaired glucose tolerance (oral) Coding Level of Care Code Est Pt Level 4 (95060) Diagnoses Peripheral neuropathy G62.9 Osteoarthritis M19.90 Impaired glucose tolerance R73.02 Hypercholesteremia E78.00 Obesity (BMI 30-39.9) E66.9
[2024-01-21 10:51] VITALS: BP 130/68; PULSE 70; O2SAT 96; BMI 31.4
== END 2024-01-21 11:28 | disposition home or self-care (01) ==
PROVIDERS: PCP Internal Medicine; Visit Provider Internal Medicine
DX: G62.9 Polyneuropathy, unspecified (principal); M19.90 Unspecified osteoarthritis, unspecified site; E66.9 Obesity, unspecified; Z68.31 Body mass index [BMI] 31.0-31.9, adult; R73.02 Impaired glucose tolerance (oral); E78.00 Pure hypercholesterolemia, unspecified
CPT/HCPCS: 99214

== ENCOUNTER 2024-03-08 11:22 | Outpatient (REF) | payer MEDICARE, SELFPAY ==
[2024-03-08 14:03] LABS: Estimated Average Glucose 126 mg/dL; Hemoglobin A1C 157.9308 umol/L
[2024-03-08 14:22] LABS: Alanine Aminotransferase 15 U/L (0-31); Albumin Level 4.4 g/dL (3.5-5.0); Alkaline Phosphatase 92 U/L (39-117); Anion Gap 12 (12-20); Aspartate Amino Transferase 16 U/L (5-31); Bilirubin Total 0.6 mg/dL (0.0-1.0); Blood Urea Nitrogen 14 mg/dL (9-16); Calcium 9.6 mg/dL (8.4-10.2); Carbon Dioxide 28 mmol/L (22-29); Chloride 103 mmol/L (96-108); Cholesterol 191 mg/dL (<200); Estimated Glomerular Filt Rate > 60; Glucose Random 98 mg/dL (60-115); Potassium 4.5 mmol/L (3.3-5.1); Sodium 138 mmol/L (135-145); Total Protein 7.1 g/dL (6.5-8.0); Triglycerides 274 mg/dL (<150)
[2024-03-08 14:41] LABS: Free T4 (Free Thyroxine) 0.84 ng/dL (0.71-1.85); Thyroid Stimulating Hormone 4.62 uIU/mL (0.32-4.0)
[2024-03-08 14:45] LABS: HDL Cholesterol 63 mg/dL (>40); LDL Cholesterol Calculated 74 mg/dL (<100)
== END 2024-03-08 11:23 | disposition home or self-care (01) ==
LOC: HO.HMGCLDS 11:22
PROVIDERS: PCP Internal Medicine; Visit Provider Internal Medicine
DX: R73.02 Impaired glucose tolerance (oral) (principal); E78.00 Pure hypercholesterolemia, unspecified; R79.89 Other specified abnormal findings of blood chemistry
CPT/HCPCS: 36415; 80053; 80061; 83036; 84439; 84443

== ENCOUNTER → 2024-03-15 10:17 | Outpatient (AMB) | payer MEDICARE, SELFPAY ==
--- NOTE | 2024-03-15 10:24 | AM.OFFVISNUR ---
Intake Visit Reasons: Flu shot Allergies Penicillins [PENICILLINS] Allergy (Unknown, Verified 01/21/24 10:51) RASH,HIVES,SWELLING latex Allergy (Verified 01/21/24 10:51) Itching Office Procedures Flu Questionnaire Does the patient have a severe egg allergy?: No Does the patient have severe life threatening allergies?: No Does the patient have a fever or illness today?: No Has the patient ever had Guillain-[place] Syndrome?: No Has the patient ever had any past reaction to a flu shot?: No Assessment & Plan Assessment & Plan Orders: Orders Influenza [id number] Immunization Today Z23 - Encounter for immunization Medications: New Fluarix Triv [id number] (PF) (flu vacc [id number] 6mos up(PF)) 0.5 mL IM ONCE 0.5 mL 0RF NS Z23 - Encounter for immunization
== END ==
PROVIDERS: PCP Internal Medicine; Visit Provider Internal Medicine
DX: Z23 Encounter for immunization (principal)

== ENCOUNTER → 2024-03-15 10:17 | Outpatient (BNVA) | payer MEDICARE, SELFPAY | PROVIDERS: PCP Internal Medicine; Visit Provider Internal Medicine | DX: Z23 Encounter for immunization (principal) | CPT/HCPCS: 90471; 90656 ==

== ENCOUNTER 2024-06-27 11:27 | Outpatient (AMB) | payer MEDICARE, SELFPAY ==
[2024-06-27 11:36] VITALS: BP 128/68; PULSE 74; O2SAT 98; BMI 31.8
--- NOTE | 2024-06-27 11:36 | AM.OFFVISMDC ---
Intake Vital Signs 06/27/24 11:36 Height 5 ft 4 in Weight 185 lb BMI 31.8 BP 128/68 Blood Pressure Location Lt brachial Position Sitting Pulse 74 Pulse Source Pulse Oximeter Pulse Oximetry (%) 98 Oxygen Delivery Method Room Air Intake Visit Reasons: AWV Lead Level Designer Required: No Allergies Penicillins [PENICILLINS] Allergy (Unknown, Verified 06/27/24 11:36) RASH,HIVES,SWELLING latex Allergy (Verified 06/27/24 11:36) Itching Medication List - Last Reconciled 06/27/24 by Sp Almanza MD albuterol sulfate 90 mcg/actuation 2 puffs inhalation Q4-6H cholecalciferol (vitamin D3) 125 mcg PO DAILY clotrimazole-betamethasone 1-0.05 % 1 appl topical BID cyanocobalamin (vitamin B-12) 1,000 mcg PO DAILY magnesium oxide 400 mg PO DAILY simvastatin 20 mg PO DAILY HPI AWV HPI Details The patient is a 74-year-old female presenting with concerns related to her increased glucose levels identified in previous tests. She has a history of hypercholesterolemia, obesity, impaired glucose tolerance, and osteoporosis. Her last blood work in August 2023 indicated elevated hemoglobin A1c levels, marking impaired glucose tolerance, with current levels requiring monitoring. She previously underwent a colonoscopy in December 2015 and a mammogram in February 2023. The patient reports consuming sweets and carbohydrates like pasta, bread, rice, and potatoes which may contribute to her glucose intolerance. She has been advised to reduce intake or incorporate exercise. She denies any new symptoms or changes since her last visit in December 2023. Her bone density was last checked in March 2022. She reported injuring her right ankle recently but did not require immediate medical attention. - Mammogram completed in February 2023. - Colonoscopy last performed in December 2015, due for a repeat. - Bone density screening completed in March 2022. - Consuming Vitamin D, B12, and magnesium supplements. - Discussed dietary modifications concerning carbohydrate intake. - Discouraged alcohol and cigarette use. - Denies regular alcohol consumption; reports having a drink roughly once every week and a half. - No current tobacco use. - Takes vitamin D, B12, and magnesium supplements regularly. - High carbohydrate diet noted, with an emphasis on sweets, pasta, bread, rice, and potatoes. - Engages in regular daily activities, including climbing stairs without significant issues. - Occasional ankle discomfort due to a recent injury. - General: Denies recent weight loss or gain. - Respiratory: Denies dyspnea or wheezing. - Cardiovascular: Denies chest pain. - Gastrointestinal: Denies heartburn. - Musculoskeletal: Reports recent right ankle soreness associated with previous incident. - - Labs: Hemoglobin A1c was 6.0. - Labs: Triglycerides 274, TSH 5 mIU/L. [facility] Medical History (Updated 06/27/24 @ 12:31 by Sp Almanza MD) Medicare annual wellness visit, subsequent COVID-19 virus infection Hypertriglyceridemia Crush accident Elevated LFTs Skin tag Mild sleep apnea Congestion of both ears COVID-19 History of melanoma Osteopenia Lumbar degenerative disc disease Peripheral neuropathy Asthma Obesity (BMI 30-39.9) Hypercholesteremia Surgical History History of melanoma excision (~2014) History of bilateral oophorectomy Family History Father Lung cancer Mother Lung cancer Social History (Updated 06/27/24 @ 12:15 by Sp Almanza MD) Housing: House Alcohol intake: current Alcohol intake frequency: holidays/special occasions only Comment: stuffy with alcohol- rarely Patient Tobacco Use Status: Former Tobacco user Tobacco use type: Cigarette Years Smoked: 2002 smoked for 10 years e-Cigarette/Vaping Use: Never Used Second Hand Smoke Exposure: Yes service: No Current occupational status: retired Current occupation: School Cafeteria - Left Handed Cognitive needs: No Hearing needs: No Vision needs: Yes (Glasses) Questionnaire Medicare Wellness Checkup [age] What gender do you identify with?: female During the past 4 weeks, how much have you been bothered by emotional problems such as feeling anxious, depressed, irritable, sad or downhearted, and blue?: not at all During the past 4 weeks, has your physical & emotional health limited your social activities with family, friends, neighbors, or groups?: not at all During the past 4 weeks, how much bodily pain have you generally had?: very mild pain During the past 4 weeks, was someone available to help you if you needed & wanted help?: yes, as much as I wanted During the past 4 weeks, what was the hardest physical activity you could do for at least 2 minutes?: very heavy Can you get to places out of walking distance without help? (For eg., can you travel alone on buses, taxis or drive your car?): Yes Can you go shopping for groceries or clothes without someone's help?: Yes Can you prepare your own meals?: Yes Can you do your housework without help?: Yes Because of any health problems, do you need the help of another person with your personal care needs such as eating, bathing, dressing or getting around the house?: No Can you handle your own money without help?: Yes During the past 4 weeks, how would you rate your health in general?: very good During the past 4 weeks how have things been going for you?: very well; could hardly better Are you having difficulties driving your car?: no Do you always fasten your seat belt when you are in a car?: yes, usually During past 4 weeks, have you been bothered by the following: never: Falling or dizzy when standing up, Trouble eating well?, Teeth or denture problems? and Problems using the telephone? and seldom: Sexual problems? and Tiredness or fatigue? Have you fallen 2 or more times in the past year?: No Are you afraid of falling?: Yes Are you a smoker?: no During the past 4 weeks, how many drinks of wine, beer, or other alcoholic beverages did you have?: 1 drink or less per week Do you exercise for about 20 minutes 3 or more times a week?: no, I usually do not exercise this much Have you been given information to help with the following?: yes: Hazards in your house that might hurt you? and yes: Keeping track of your medications? How often do you have trouble taking medicines the way you have been told to take them?: I always take medicine as prescribed How confident are you that you can control & manage most of your health problems?: very confident What is your race?: White PHQ-9 Over the last 2 weeks, how often have you been bothered by any of the following problems? 1. Little interest or pleasure in doing things: not at all 2. Feeling down, depressed, or hopeless: not at all 3. Trouble falling or staying asleep, or sleeping too much: not at all 4. Feeling tired or having little energy: not at all 5. Poor appetite or overeating: not at all 6. Feeling bad about yourself - or that you are a failure or have let yourself or your family down: not at all 7. Trouble concentrating on things, such as reading the newspaper or watching television: not at all 8. Moving or speaking so slowly that other people could have noticed. Or the opposite - being so fidgety or restless that you have been moving around a lot more than usual: not at all 9. Thoughts that you would be better off or of hurting yourself in some way: not at all Total score: 0 Depression Screening Interpretation: Negative Depression Screening Done: Yes 73699 - PHQ-9 Billing: Yes Source: Developed by Drs. Benjamín Ramos, Alem Calabrese, Anthony Nicolas and colleagues, with an educational [place] from [employer]. Thrive Questionnaire Date Thrive assessed: 06/20/24 I am a: Patient What is your living situation today?: I have a steady place to live Within the past 12 months, did the food you bought not last and you didn't have the money to get more?: Never true Within the past 12 months, did you worry whether your food would run out before you got money to buy more?: Never true Do you have trouble paying for medicines?: No Do you have trouble getting transportation to medical appointments?: No Do you have trouble paying your heating and electricity bill?: No Do you have trouble taking care of your child, family member or friend?: No Do you have trouble with day-to-day activities such as bathing, preparing meals, shopping, managing finances, etc.?: No Are you currently unemployed and looking for a job?: No Are you interested in more education?: No Please select the resources that you would like help with: None Currently or been in a relationship where the following occur: No concerns reported THRIVE Score: 0 JULIA-7 AMB Questionnaire JULIA-7 Date JULIA - 7 assessed: 06/27/24 Feeling nervous, anxious, or on edge: 0 = Not at all Not being able to stop or control worryin = Not at all Worrying too much about different things: 0 = Not at all Trouble relaxin = Not at all Being so restless that it is hard to sit still: 0 = Not at all Becoming easily annoyed or irritable: 0 = Not at all Feeling afraid as if something awful might happen: 0 = Not at all Total JULIA-7 score (0-4 normal; 5-9 mild; 10-14 moderate; 15-21 severe): 0 Source: Developed by Drs. Benjamín Ramos, Alem Calabrese, Anthony Nicolas and colleagues, with an educational [place] from [employer]. Review of Systems Const Denies poor appetite and Denies weakness Eyes Denies no additional complaints ENT Reports Normal hearing present, Denies dizziness, Denies nasal congestion, Denies tinnitus and Denies sore throat Card Denies chest pain, Denies syncope, Denies rapid heart rate and Denies dyspnea Resp Denies cough and Denies dyspnea GI Denies change in stool character, Reports constipation, Denies diarrhea, Denies nausea and Denies vomiting Denies urinary frequency, Denies difficulty voiding and Denies dysuria Neuro Reports Normal hearing present, Denies confusion, Denies dizziness, Denies syncope and Denies weakness Psych Denies confusion Physical Exam Vital Signs: Last Vital Signs Pulse 74 06/27/24 11:36 BP 128/68 06/27/24 11:36 Pulse Ox 98 06/27/24 11:36 Oxygen Delivery Method Room Air 06/27/24 11:36 BMI result Body Mass Index 31.8 Const General: No confusion Orientation/consciousness: No confusion HEENT Head: Yes normocephalic Ears: external ears normal and TM's normal bilaterally Face and sinus: Yes normal facial exam Mouth: moist mucous membranes Throat: Yes tonsils normal Eyes Conjunctivae: conjunctivae normal Pupils: Equal, round and reactive pupils present and Pupil accommodation reflex normal Direct Ophthalmoscopy: normal light reflex Neck Neck: No lymphadenopathy Thyroid: Thyroid normal Chest Chest palpation & inspection: normal inspection of the chest Resp Effort & Inspection: normal respiratory effort and no audible wheezes Auscultation: clear to auscultation bilaterally, no crackles, no wheezes and lung sounds not diminished Cardio Rate: regular rate Rhythm: regular rhythm Peripheral pulses: radial pulses present and dorsalis pedis present GI Palpation (GI): no masses Auscultation: normal bowel sounds and normoactive bowel sounds Rectal Exam - Female: deferred Skin General skin exam: no rashes or lesions noted Rashes: no rashes Neuro General: No confusion Cranial nerves: Yes Equal, round and reactive pupils present and Yes Normal hearing present Cognition (Neuro): normal cognition Gait exam (Neuro): Normal gait present Motor exam (neuro): 5/5 motor strength present throughout Deep tendon reflexes (DTR's): Right brachioradialis reflex intensity grade: 2+, Left brachioradialis reflex intensity grade: 2+, Right patellar reflex intensity grade: 2+ and Left patellar reflex intensity grade: 2+ Extrem General: No edema Assessment & Plan Assessment & Plan (1) Medicare annual wellness visit, subsequent: Code(s): Z00.00 - Encounter for general adult medical examination without abnormal findings (2) Impaired glucose tolerance: Code(s): R73.02 - Impaired glucose tolerance (oral) (3) Obesity (BMI 30-39.9): Code(s): E66.9 - Obesity, unspecified (4) Hypercholesteremia: Code(s): E78.00 - Pure hypercholesterolemia, unspecified (5) Age-related osteoporosis without current pathological fracture: Code(s): M81.0 - Age-related osteoporosis without current pathological fracture (6) Right ankle pain: Code(s): M25.571 - Pain in right ankle and joints of right foot (7) Osteopenia: Code(s): M85.80 - Other specified disorders of bone density and structure, unspecified site (8) Thyroid nodule: Code(s): E04.1 - Nontoxic single thyroid nodule (9) Neck mass: Code(s): R22.1 - Localized swelling, mass and lump, neck Plan - Recommend follow-up on impaired glucose tolerance with lifestyle modifications focusing on diet and exercise. - Monitor hemoglobin A1c levels with routine laboratory testing. - Follow-up on elevated TSH with potential endocrine referral if persistent. - Encourage dietary adjustments, specifically reducing carbohydrate intake. - Initiate an ankle X-ray to assess any structural damage from recent injury. - Continue Vitamin D, , and magnesium supplementation. - Review cholesterol management due to hypercholesterolemia. - Discuss potential future colonoscopy if symptoms warrant. I discussed the patient's current health status, addressing the elevated hemoglobin A1c and its implications concerning impaired glucose tolerance. I explained the importance of monitoring glucose levels and the necessary dietary modifications, emphasizing reduced carbohydrate intake. We also reviewed concerns regarding her elevated TSH and suggested this might warrant an endocrinological review if persisting. I provided a plan for her to continue with her current supplementation regimen, emphasizing lifestyle and dietary adjustments. I reviewed the need for an X-ray for her ankle due to recent injury and discussed further screening for cholesterol management. I advised on ongoing follow-up and efforts towards health maintenance and preventative care. - Reduce carbohydrate intake, particularly sweets, pasta, bread, rice, and potatoes. - Increase physical activity to support glucose management. - Continue current vitamin supplementation. - Monitor any changes in symptoms, and report as necessary. - Follow up if ankle discomfort persists or worsens. - Schedule the next routine examination and lab tests as necessary. - Use caution with alcohol and avoid cigarettes entirely. - Wear a mask in public settings to reduce infection risks. Orders: Orders Hemoglobin A1c Today R73.02 - Impaired glucose tolerance (oral) Thyroid Stimulating Hormone Today R73.02 - Impaired glucose tolerance (oral) Vitamin B12 and Folate Today R73.02 - Impaired glucose tolerance (oral) UA w Microscopic Today R73.02 - Impaired glucose tolerance (oral) XR DEXA axial skeleton Today M81.0 - Age-related osteoporosis without current pathological fracture, M85.80 - Other specified disorders of bone density and structure, unspecified site US thyroid Today E04.1 - Nontoxic single thyroid nodule Comprehensive Met. Panel Today R73.02 - Impaired glucose tolerance (oral) Complete Blood Count Auto Diff Today R73.02 - Impaired glucose tolerance (oral) Free T4 (Free Thyroxine) Today R73.02 - Impaired glucose tolerance (oral) Lipid Panel Today E78.00 - Pure hypercholesterolemia, unspecified, R73.02 - Impaired glucose tolerance (oral) US soft tiss head and/or neck Today R22.1 - Localized swelling, mass and lump, neck XR ankle RT 2V Today M25.571 - Pain in right ankle and joints of right foot Quality Reporting (2019) Depression/Bipolar (159/160/161/177) PHQ-9: Total score: 0 Coding Level of Care Code Medicare Subsequent (G0439) Diagnoses Medicare annual wellness visit, subsequent Z00.00 Impaired glucose tolerance R73.02 Obesity (BMI 30-39.9) E66.9 Hypercholesteremia E78.00 Age-related osteoporosis without current pathological fracture M81.0 Right ankle pain M25.571 Osteopenia M85.80 Thyroid nodule E04.1 Neck mass R22.1 Additional Codes PHQ-9 - 71575 - PHQ-9 Billing: Yes ([id number])
== END 2024-06-27 12:42 | disposition home or self-care (01) ==
PROVIDERS: PCP Internal Medicine; Visit Provider Internal Medicine
DX: Z00.00 Encounter for general adult medical examination without abnormal findings (principal); R73.02 Impaired glucose tolerance (oral); Z68.31 Body mass index [BMI] 31.0-31.9, adult; E66.9 Obesity, unspecified; E78.00 Pure hypercholesterolemia, unspecified; M81.0 Age-related osteoporosis without current pathological fracture; M25.571 Pain in right ankle and joints of right foot; M85.80 Other specified disorders of bone density and structure, unspecified site; E04.1 Nontoxic single thyroid nodule; R22.1 Localized swelling, mass and lump, neck

== ENCOUNTER → 2024-06-27 11:27 | Outpatient (BNVA) | payer MEDICARE, SELFPAY | PROVIDERS: PCP Internal Medicine; Visit Provider Internal Medicine | DX: Z00.00 Encounter for general adult medical examination without abnormal findings (principal); R73.02 Impaired glucose tolerance (oral); E78.00 Pure hypercholesterolemia, unspecified; E66.9 Obesity, unspecified; M81.0 Age-related osteoporosis without current pathological fracture; M25.571 Pain in right ankle and joints of right foot; M85.80 Other specified disorders of bone density and structure, unspecified site; E04.1 Nontoxic single thyroid nodule; R22.1 Localized swelling, mass and lump, neck | CPT/HCPCS: 96127 ==

== ENCOUNTER 2024-07-03 09:49 | Outpatient (REF) ==
--- NOTE | ~2024-07-03 | US_ITS ---
US/US thyroid IMPRESSION: Heterogeneous thyroid echotexture without evidence of discrete nodules. Electronically signed by: Benjamín Valle MD 07/04/2024 10:56 AM MAR[facility]
[2024-07-03 11:00] LABS: MANUAL DIFF FLAG NO
[2024-07-03 11:39] LABS: Basophils Percent Auto 0.4 % (0-2); Eosinophils Absolute Auto 0.1 X10*3/uL (0.0-0.4); Eosinophils Percent Auto 1.6 % (0-4); Hematocrit 44.7 % (37.0-47.0); Hemoglobin 14.7 g/dl (12.0-16.0); Imm Gran Abs Auto 0.02 X10*3/uL (0.00-0.03); Imm Gran Pct Auto 0.4 % (0.0-0.4); Lymphocytes Absolute Auto 1.9 X10*3/uL (1.2-4.9); Lymphocytes Percent Auto 34.7 % (20-40); Mean Corpuscular HGB Conc 32.9 g/dl (31.0-35.0); Mean Corpuscular Hemoglobin 30.4 pg (27.0-33.0); Mean Corpuscular Volume 92.5 fL (80.0-98.0); Mean Platelet Volume 9.4 fL (9.4-12.3); Monocytes Absolute Auto 0.4 X10*3/uL (0.1-1.2); Monocytes Percent Auto 6.9 % (2-11); Neutrophils Absolute Auto 3.1 x10*3/uL (2.0-8.3); Platelet Count 176 X10*3/uL (160-400); Red Blood Count 4.83 X10*6/uL (4.20-5.50); Red Cell Distribution Width 12.6 % (11.0-16.0); White Blood Count 5.5 X10*3/uL (4.8-10.8)
[2024-07-03 11:45] LABS: Estimated Average Glucose 126 mg/dL; Hemoglobin A1C 161.0654 umol/L; Total Hemoglobin (HGBA1C) 3805.2867 umol/L
[2024-07-03 12:13] LABS: Alanine Aminotransferase 19 U/L (0-31); Albumin Level 4.3 g/dL (3.5-5.0); Alkaline Phosphatase 93 U/L (39-117); Anion Gap 11 (12-20); Aspartate Amino Transferase 24 U/L (5-31); Bilirubin Total 0.4 mg/dL (0.0-1.0); Blood Urea Nitrogen 15 mg/dL (9-16); Calcium 9.4 mg/dL (8.4-10.2); Carbon Dioxide 30 mmol/L (22-29); Chloride 104 mmol/L (96-108); Cholesterol 188 mg/dL (<200); Estimated Glomerular Filt Rate > 60; Glucose Random 99 mg/dL (60-115); HDL Cholesterol 61 mg/dL (>40); LDL Cholesterol Calculated 90 mg/dL (<100); Potassium 4.9 mmol/L (3.3-5.1); Sodium 140 mmol/L (135-145); Total Protein 7.5 g/dL (6.5-8.0); Triglycerides 189 mg/dL (<150)
[2024-07-03 12:27] LABS: Thyroid Stimulating Hormone 3.59 uIU/mL (0.32-4.0)
[2024-07-03 12:43] LABS: Folate 12.7 ng/mL (> or = 4.0); Vitamin B12 665 pg/mL (200-900)
[2024-07-03 13:55] LABS: Appearance Urine Clear; Color Urine Yellow; Glucose Urine UA Negative (Negative); Leukocyte Esterase Urine Negative (Negative); Nitrite Urine Negative (Negative); Specific Gravity - Urine 1.015 (1.005-1.025); Urine Blood Negative (Negative); Urine Ketones Negative (Negative); Urine Protein Negative (Neg-Trace)
[2024-07-03 13:58] LABS: Bacteria Urine None Seen (None Seen); Hyaline Casts Urine 0-2 /LPF (0-2); RBC Urine 0-2 /HPF (0-2); Squamous Epithelial Cell Urine 0-2 /HPF (0-2); WBC Urine 0-5 /HPF (0-5)
== END 2024-07-03 09:50 | disposition home or self-care (01) ==
LOC: HO.US 09:49
PROVIDERS: Internal Medicine
DX: R22.1 Localized swelling, mass and lump, neck (principal); E04.1 Nontoxic single thyroid nodule; R73.02 Impaired glucose tolerance (oral); E78.00 Pure hypercholesterolemia, unspecified
CPT/HCPCS: 36415; 73610; 76536; 80053; 80061; 81001; 82607; 82746; 83036; 84439; 84443; 85025

== ENCOUNTER → 2024-07-03 09:59 | Outpatient (BNV) | payer MEDICARE, SELFPAY | PROVIDERS: PCP Internal Medicine; Visit Provider Radiology Diagnostic Radiology | DX: E04.1 Nontoxic single thyroid nodule (principal) | CPT/HCPCS: 73610; 76536 ==

== ENCOUNTER 2024-07-19 08:46 | Outpatient (REF) | payer MEDICARE, SELFPAY ==
--- NOTE | ~2024-07-19 | CT_ITS ---
CLINICAL HISTORY: POLYP OF NASAL CAVITY,DEVIATED NASAL SEPTUM CT sinuses without contrast Comparison: None Findings: The maxillary sinuses exhibit mild mucoperiosteal thickening which results in narrowing of the ostiomeatal units. Ethmoid, sphenoid and frontal sinuses are clear The nasal airways are patent. No nasal polyps or masses. The orbits are normal. No acute fractures. IMPRESSION: Mucoperiosteal thickening of the maxillary sinuses which results in narrowing of the ostiomeatal units. This document has been electronically signed by: Ethan Lee MD on 07/19/2024 12:43:37
--- OUTSIDE RECORDS SUMMARY | 2024-07-19 09:29 | XMS_ITS | Patient Health Record ---
Author Organization [facility] Address [address] [place] [address] Care Team Providers Care Technical Photographer Name Role Phone Sp Almanza Primary Care Provider Alfred Carr Unavailable [phone] Allergies Allergen (clinical drug ingredient) Drug/Non Drug Allergy documented on EMR Reaction Allergy Type Onset Date Status amoxicillin Amoxicillin rash Drug Allergy Act william Latex Latex rash Allergy Active Reason For Referral No Information Medications Medication SIG (Take, Route, Fr equency, Duration) Notes Start Date End Date Status Vitamin B12 Active Fenofibrate Active Biotin Not-Taking Simvastatin 20 MG Orally Once a day Active Vitamin D3 Active Loratadine 10 MG Orally Act william Turmeric Not-Taking Calcium 600 MG Orally Not-T aking Neurontin 300 MG 1 capsule Orally Onc e a day at night for 30 day(s) 01/06/2019 Not-Taking Immunizations Vaccine Route Administration Date Status Comme nts COVID-19 Pfizer BioNTech Vaccine Unknown 11/30/2020 Administered First Dose: Social History Tobacco Use: Social History Observation Description Date Details (start date - stop date) Former Smoker NA - NA Tobacco Use/Smoking Question Answer Notes Are you a: former smoker Additional Findings: Tobacco Non-User Current no n-smoker Alcohol Screen Question Answer Notes Did you have a drink contain ing alcohol in the past year? Yes How often did you have a dri nk containing alcohol in the past year? Monthly or less (1 point) Points 1 Interpretation Negative Tobacco use other than smoking: Question Answer Notes Are you an other tobacco user? No Problems Problem Type SNOMED Code ICD Code Onset Dates Problem Status W/U Status Risk Notes Problem Plantar wart (24469966) Plantar wart (B07.0) Active confirmed Problem 771401244 Neuropathy (G62.9) Active confirmed Problem 643084001 Neuropathy of both feet (G57.93) Active confirmed Plan Of Treatment No Information Insurance Providers Payer Name Payer Address Payer Phone Subscriber Number Group Number Insured Name Patient Relationship to Insured Coverage Start Date Coverage End Date Medicare National Govt Svcs Inc [address] [place] [address] [id number] Alisha Parada Self - patient is the insured [employer] [address] [place] [address] [id number] Alisha Parada Self - patient is the insured Medical (General) History Medical History History ICD Code Arthritis asthma Back,Hip,and Knee pain CAD (Cholesterol) Numbness Sinus conditions Mumps Chicken pox Surgical History Surgery Date(Month/Year) melanoma 2015 overies removed hernia right side left wrist surgery left foot surgery Hospitalization History Reason Date(Month/Year) Urgent Care -L Wrist fratured 04/04/20
== END 2024-07-19 08:47 | disposition home or self-care (01) ==
LOC: HO.CT 08:46
PROVIDERS: Visit Provider Otolaryngology
DX: J33.0 Polyp of nasal cavity (principal); J34.2 Deviated nasal septum
CPT/HCPCS: 70486

== ENCOUNTER → 2024-07-19 08:48 | Outpatient (BNV) | payer MEDICARE, SELFPAY | PROVIDERS: Visit Provider Radiology Vascular & Interventional Radiology | DX: J34.89 Other specified disorders of nose and nasal sinuses (principal) | CPT/HCPCS: 70486 ==

== ENCOUNTER 2024-07-28 07:56 | Outpatient (REF) | payer MEDICARE, SELFPAY ==
--- NOTE | ~2024-07-28 | MM_ITS ---
EXAMINATION: DXA BONE DENSITY AXIAL HISTORY: Estrogen deficiency TECHNIQUE: [employer] Dual energy absorptiometry (DEXA) of the lumbar spine, total left hip, and femoral neck was performed. COMPARISON: Comparison is made with the prior examination dated 04/10/2022. FINDINGS: The bone mineral density of the lumbar spine is 0.971 with a T-score of -1.7, and a Z-score of -0.6. This represents a BMD change of 2.5% compared to the prior exam. This is not statistically significant. The bone mineral density of the left total hip is 0.907 with a T-score of -0.8, and a Z-score of 0.4. This represents a BMD change of 3.7% compared to the prior exam. This is not statistically significant. The bone mineral density of the left femoral neck is 0.911 with a T-score of -0.9, and a Z-score of 0.5. This represents a BMD change of 10.8% compared to the prior exam. FRACTURE RISK: The FRAX index suggests a ten year probability of major osteoporotic fracture of 13.8%, and of hip fracture 1.6%. MM/XR DEXA axial skeleton IMPRESSION: Based on bone mineral density, and according to World Health Organization (WHO) criteria, the diagnosis is consistent with osteopenia. All bone density values are in grams per centimeter squared (g/cm2). Statistically, 68% of repeat scans fall within 1 SD (+/- 0.010 g/cm2 for AP spine L1-L4) and 1 SD (+/- 0.012 g/cm2 for femur total) FRAX is a trademark of the [employer]'s [place] for Metabolic Bone Disease, a World Health Organization (WHO) Collaborating Center. Electronically signed by: Benjamín Valle MD 07/28/2024 11:10 AM [facility] [place]
== END 2024-07-28 07:57 | disposition home or self-care (01) ==
LOC: HO.MAMMO 07:56
PROVIDERS: PCP Internal Medicine; Visit Provider Internal Medicine
DX: M81.0 Age-related osteoporosis without current pathological fracture (principal); M85.80 Other specified disorders of bone density and structure, unspecified site
CPT/HCPCS: 77080

== ENCOUNTER → 2024-07-28 08:15 | Outpatient (BNV) | payer MEDICARE, SELFPAY | PROVIDERS: PCP Internal Medicine; Visit Provider Radiology Diagnostic Radiology | DX: E28.39 Other primary ovarian failure (principal) | CPT/HCPCS: 77080 ==

== ENCOUNTER 2024-10-04 11:08 | Outpatient (AMB) | payer MEDICARE, SELFPAY ==
--- NOTE | 2024-10-04 11:21 | MHC.PC.OV ---
Vital Signs 10/04/24 11:24 Height 5 ft 4 in Weight 185 lb BMI 31.8 BP 130/70 Blood Pressure Location Lt brachial Position Sitting Pulse 74 Pulse Source Pulse Oximeter Pulse Oximetry (%) 97 Oxygen Delivery Method Room Air Intake Visit Reasons: Follow Up Allergies Penicillins [PENICILLINS] Allergy (Unknown, Verified 10/04/24 11:24) RASH,HIVES,SWELLING latex Allergy (Verified 10/04/24 11:24) Itching Medication List - Last Reconciled 10/04/24 by Sp Almanza MD albuterol sulfate 90 mcg/actuation 2 puffs inhalation Q4-6H cholecalciferol (vitamin D3) 125 mcg PO DAILY clotrimazole-betamethasone 1-0.05 % 1 appl topical BID cyanocobalamin (vitamin B-12) 1,000 mcg PO DAILY fluticasone furoate 27.5 mcg/actuation (Flonase Sensimist) 1 spray intranasal DAILY loratadine 10 mg PO DAILY magnesium oxide 400 mg PO DAILY simvastatin 20 mg PO DAILY Tobacco use date assessed: 10/04/24 Fall risk assessment: No Falls in past year Last assessed Fall Risk: 10/04/24 Dental Screening Dental Screen Date: 10/04/24 Did you have a dental visit in the last 12 months?: Yes Did you have a dental problem in the last 6 months where you did not have access to dental care?: No Was dental information given to patient?: Patient has dentist [facility] Medical History (Updated 10/04/24 @ 11:46 by Sp Almanza MD) Medicare annual wellness visit, subsequent COVID-19 virus infection Hypertriglyceridemia Crush accident Elevated LFTs Skin tag Mild sleep apnea Congestion of both ears COVID-19 History of melanoma Osteopenia Lumbar degenerative disc disease Peripheral neuropathy Asthma Obesity (BMI 30-39.9) Hypercholesteremia Surgical History History of melanoma excision (~2014) History of bilateral oophorectomy Family History Father Lung cancer Mother Lung cancer Social History (Updated 06/27/24 @ 12:15 by Sp Almanza MD) Housing: House Alcohol intake: current Alcohol intake frequency: holidays/special occasions only Comment: stuffy with alcohol- rarely Patient Tobacco Use Status: Former Tobacco user Tobacco use type: Cigarette Years Smoked: 2001 smoked for 10 years e-Cigarette/Vaping Use: Never Used Second Hand Smoke Exposure: Yes service: No Current occupational status: retired 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 1. Little interest or pleasure in doing things: not at all 2. Feeling down, depressed, or hopeless: not at all 3. Trouble falling or staying asleep, or sleeping too much: not at all 4. Feeling tired or having little energy: not at all 5. Poor appetite or overeating: not at all 6. Feeling bad about yourself - or that you are a failure or have let yourself or your family down: not at all 7. Trouble concentrating on things, such as reading the newspaper or watching television: not at all 8. Moving or speaking so slowly that other people could have noticed. Or the opposite - being so fidgety or restless that you have been moving around a lot more than usual: not at all 9. Thoughts that you would be better off or of hurting yourself in some way: not at all Total score: 0 Depression Screening Interpretation: Negative Depression Screening Done: Yes 26280 - PHQ-9 Billing: Yes Source: Developed by Drs. Benjamín Ramos, Alem Calabrese, Anthony Nicolas and colleagues, with an educational [place] from [employer] Thrive Questionnaire Date Thrive assessed: 06/20/24 I am a: Patient What is your living situation today?: I have a steady place to live Within the past 12 months, did the food you bought not last and you didn't have the money to get more?: Never true Within the past 12 months, did you worry whether your food would run out before you got money to buy more?: Never true Do you have trouble paying for medicines?: No Do you have trouble getting transportation to medical appointments?: No Do you have trouble paying your heating and electricity bill?: No Do you have trouble taking care of your child, family member or friend?: No Do you have trouble with day-to-day activities such as bathing, preparing meals, shopping, managing finances, etc.?: No Are you currently unemployed and looking for a job?: No Are you interested in more education?: No Please select the resources that you would like help with: None Currently or been in a relationship where the following occur: No concerns reported THRIVE Score: 0 JULIA-7 AMB Questionnaire JULIA-7 Date JULIA - 7 assessed: 06/27/24 Source: Developed by Drs. Benjamín Ramos, Alem Calabrese, Anthony Nicolas and colleagues, with an educational [place] from [employer] Physical exam (Primary Care) Vital Signs: Last Vital Signs Pulse 74 10/04/24 11:24 BP 130/70 10/04/24 11:24 Pulse Ox 97 10/04/24 11:24 Oxygen Delivery Method Room Air 10/04/24 11:24 BMI result Body Mass Index 31.8 Tobacco/Smoking Status: Tobacco use Status Tobacco use date assessed 10/04/24 10/04/24 11:29 Patient Tobacco Use Status Former Tobacco user 10/04/24 11:23 Tobacco use type Cigarette 10/04/24 11:23 e-Cigarette/Vaping Use Never Used 10/04/24 11:23 PHQ-9: PHQ-9 Score PHQ-9: Total score 0 10/04/24 11:36 Depression Screening Interpretation: Negative Thrive Assessment: Date of Thrive Assessment Date Thrive assessed 06/20/24 10/04/24 11:23 Currently or been in a relationship where the following occur: No concerns reported Const General: alert; No acute distress Eyes Conjunctivae: conjunctivae normal Resp Auscultation: clear to auscultation bilaterally Cardio Rate: regular rate Rhythm: regular rhythm GI Inspection: Yes normal to inspection Extrem General: Yes normal to inspection and No edema Coding Level of Care Code Est Pt Level 4 (52768) Diagnoses Thyroid nodule E04.1 Osteopenia M85.80 Maxillary sinusitis J32.0 Impaired glucose tolerance R73.02 Obesity (BMI 30-39.9) E66.9 Hypercholesteremia E78.00 Constipation K59.00 Additional Codes PHQ-9 - 05411 - PHQ-9 Billing: Yes ([id number]) Assessment & Plan Assessment & Plan (1) Thyroid nodule: Comment: June 2024 no nodule Code(s): E04.1 - Nontoxic single thyroid nodule Category: Medical Plan: June 2024 ultrasound no nodule (2) Osteopenia: Comment: Bone density July 2024 Code(s): M85.80 - Other specified disorders of bone density and structure, unspecified site Category: Medical Plan: Bone density up-to-date July 2024 (3) Maxillary sinusitis: Code(s): J32.0 - Chronic maxillary sinusitis Category: Medical Plan: Sinus x-rays revealing mucoperiosteal thickening maxillary (4) Impaired glucose tolerance: Code(s): R73.02 - Impaired glucose tolerance (oral) Category: Medical Plan: Decrease the amount of carbohydrate intake, pasta, bread, rice and potatoes are all sugar and that is aside from all the sweet stuff, remember that fruits are good but they are Sweet also. (5) Obesity (BMI 30-39.9): Code(s): E66.9 - Obesity, unspecified Category: Medical Plan: Diet and exercise (6) Hypercholesteremia: Code(s): E78.00 - Pure hypercholesterolemia, unspecified Category: Medical Plan: Avoid fried foods, chicken skin, eggs, butter margarine, pastries and meat. Be it pork or beef they have a lot of cholesterol LDL goal of less than 130 and triglyceride of less than 150 on simvastatin 20 mg once a day (7) Constipation: Code(s): K59.00 - Constipation, unspecified Category: Medical Plan: Three rules for constipation 1. Diet need to have a high fiber diet less of meat 2. Increase oral fluids 3. Exercise Plan History of Present Illness The patient is a 74-year-old female presenting for a follow-up visit regarding the management of her chronic conditions and review of recent test results. She has a history of obesity, dyslipidemia, glucose intolerance, osteopenia, and peripheral neuropathy. The patient's lipid profile has been carefully monitored, with recent LDL levels recorded at 90 mg/dL, while striving to maintain an LDL goal of less than 130 mg/dL with medication adherence. Her glucose levels have been stable, supported by an observed hemoglobin A1c of 6.0%, indicating glucose intolerance without progression to diabetes. A bone density test showed stability in her osteopenia diagnosis, thus continuing with calcium and vitamin D3 supplements is encouraged. In June 2024, a CAT scan showed mucosal thickening related to maxillary sinusitis, affirming the necessity for ongoing management. Concurrently, allergy shots have been initiated to mitigate sinus symptoms, accompanied by [id number] antihistamines and nasal sprays such as Claritin and Flonase. The patient has a deviated septum associated with symptoms of temporomandibular joint disorder and has engaged in chiropractic treatment, which has provided symptomatic relief, particularly in improving airflow and posture-related discomfort. Chronic constipation is being addressed with dietary modifications including enhanced fluid intake reinforced by routine reminders. Health Maintenance - Bone density test in July 2024 revealed stable osteopenia. - Cholesterol management with simvastatin 20 mg, aiming for LDL <130 mg/dL and triglycerides <150 mg/dL. - Allergy immunotherapy initiated for sinus and allergy symptoms. - Advised continued calcium and vitamin D3 supplementation. - Emphasis on physical activity and maintaining a healthy diet. - Encouraged hydration and dietary fiber to manage constipation. - Recommended continued use of multivitamins and stipulated physical exercises for overall health improvement. - Shingles vaccination discussed but yet to be administered. Social History - Reports tending to personal dietary preferences with occasional consumption of high-fat foods like corned beef, hot dogs, and chips. - Engages in moderate physical activity, including gardening and occasional walks, although she expresses reluctance for extended distance activities. - Utilizes reminders to maintain adequate hydration. - Utilizes various home and environmental adjustments to address chronic constipation issues. Review of Systems - Respiratory: Denies shortness of breath but reports occasional dyspnea on exertion. - Gastrointestinal: Reports chronic constipation, improved with dietary changes. - Neurological: Denies increased pain or new sensory disturbances related to peripheral neuropathy. - Musculoskeletal: Reports relief from chiropractic treatments addressing TMJ symptoms. - Allergies: Reports chronic sinus congestion and undergoes allergy immunotherapy. - General: Reports stable weight; no acute complaints at present. Physical Exam Results - Labs: Hemoglobin A1c 6.0%, LDL 90 mg/dL, normal renal function, normal electrolytes, and liver function tests. - Tests: CAT scan of sinuses showing mucosal thickening of the maxillary sinuses. Thyroid ultrasound normal in June 2024. Plan 1. 0%, indicating effective control. Osteopenia management includes ongoing calcium and vitamin D3 supplementation, alongside emphasizing lifestyle modifications and physical activity. Management of chronic sinusitis involves the use of allergy shots and antihistamines, with continued chiropractic treatment for related TMJ symptoms. Chronic constipation is being addressed with dietary and hydration adjustments. The patient consented to the proposed plan, including repeated monitoring appointments and the potential administration of the shingles vaccine in the future.: Patient was informed and verbally consented to the use of an ambient scribe for clinic note documentation during this visit. Discussion Notes During the discussion, we reviewed the current management plans for obesity, dyslipidemia, glucose intolerance, and osteopenia, with emphasis on factual adherence to recommended lifestyle changes and pharmacologic therapies. The importance of regular monitoring of lipid levels and glucose was reiterated, along with lifestyle adaptations like diet and exercise. Allergy management was addressed through recent immunotherapy initiation, with continued use of antihistamines discussed for symptomatic control. Chiropractic treatment for TMJ and structural alignment was positively received, and dietary adjustments to improve constipation were reinforced. In addition to chronic condition management, we advised discussing the shingles vaccine to protect against shingles. Follow-up in six months, or sooner if symptomatic changes occur, was proposed to ensure optimal maintenance of her health status. Patient Instructions - Continue taking simvastatin daily as prescribed. - Maintain a diet low in saturated fats and high in dietary fiber. - Engage in regular physical activity, such as walks or stretching exercises. - Stay hydrated with 6-8 glasses of water daily. - Take calcium and vitamin D3 supplements as directed. - Use allergy medications as needed, but check before combining with allergy shots. - Attend regular follow-ups and inform of any changes or symptoms. - Consistently manage constipation with a fiber-rich diet and increased fluid intake. - Discuss shingles vaccination and consider timing for administration. Orders: Orders Thyroid Stimulating Hormone 6 Months E78.00 - Pure hypercholesterolemia, unspecified Vitamin B12 and Folate 6 Months E78.00 - Pure hypercholesterolemia, unspecified Hemoglobin A1c 6 Months E78.00 - Pure hypercholesterolemia, unspecified Complete Blood Count Auto Diff 6 Months E78.00 - Pure hypercholesterolemia, unspecified Comprehensive Met. Panel 6 Months E78.00 - Pure hypercholesterolemia, unspecified Free T4 (Free Thyroxine) 6 Months E78.00 - Pure hypercholesterolemia, unspecified Vitamin D 25-OH Total 6 Months E78.00 - Pure hypercholesterolemia, unspecified Lipid Panel 6 Months E78.00 - Pure hypercholesterolemia, unspecified UA CC w/rflx Micro + Cult 6 Months E78.00 - Pure hypercholesterolemia, unspecified, R30.0 - Dysuria
[2024-10-04 11:24] VITALS: BP 130/70; PULSE 74; O2SAT 97; BMI 31.8
--- OUTSIDE RECORDS SUMMARY | 2024-10-04 12:14 | XMS_ITS | Patient Health Record ---
Author Organization [facility] Address [address] [place] [address] Care Team Providers Care Electrical Installation Inspector Name Role Phone Sp Almanza Primary Care Provider Alfred Carr Unavailable [phone] Allergies Allergen (clinical drug ingredient) Drug/Non Drug [...] W/U Status Risk Notes Problem Plantar wart (69589066) Plantar wart (B07.0) Active confirmed Problem 375006912 Neuropathy (G62.9) Active confirmed Problem 392867310 Neuropathy of both feet (G57.93) Active confirmed Plan Of Treatment No Information Insurance Providers Payer Name Payer Address Payer Phone Subscriber Number Group Number Insured Name Patient Relationship to Insured Coverage Start Date Coverage End Date Medicare National Govt Svcs Inc [address] [place] [address] [phone] [id number] Alisha Parada Self - patient is the insured [employer] [address] [place] [address] [id number] Alisha Parada Self - patient is the insured Medical (General) History Medical History History ICD Code Arthritis asthma Back,Hip,and Knee pain CAD (Cholesterol) Numbness Sinus conditions Mumps Chicken pox Surgical History Surgery Date(Month/Year) melanoma 2015 overies removed hernia right side left wrist surgery left foot surgery Hospitalization History Reason Date(Month/Year) Urgent Care -L Wrist fratured 04/04/20
== END 2024-10-04 11:58 | disposition home or self-care (01) ==
LOC: HO.HMCH 11:10
PROVIDERS: PCP Internal Medicine; Visit Provider Internal Medicine
DX: J32.0 Chronic maxillary sinusitis (principal); E04.1 Nontoxic single thyroid nodule; E66.9 Obesity, unspecified; Z68.31 Body mass index [BMI] 31.0-31.9, adult; R73.02 Impaired glucose tolerance (oral); M85.80 Other specified disorders of bone density and structure, unspecified site; E78.00 Pure hypercholesterolemia, unspecified; K59.00 Constipation, unspecified

== ENCOUNTER → 2024-10-04 11:08 | Outpatient (BNVA) | payer MEDICARE, SELFPAY | PROVIDERS: PCP Internal Medicine; Visit Provider Internal Medicine | DX: E04.1 Nontoxic single thyroid nodule (principal); J32.0 Chronic maxillary sinusitis; R73.02 Impaired glucose tolerance (oral); E66.9 Obesity, unspecified; Z68.31 Body mass index [BMI] 31.0-31.9, adult; E78.00 Pure hypercholesterolemia, unspecified; K59.00 Constipation, unspecified; M85.80 Other specified disorders of bone density and structure, unspecified site; Z71.3 Dietary counseling and surveillance | CPT/HCPCS: 96127; 99212 ==

== ENCOUNTER 2025-01-08 15:20 | Outpatient (AMB) | payer MEDICARE, SELFPAY ==
--- OUTSIDE RECORDS SUMMARY | 2025-01-08 15:53 | XMS_ITS | Patient Health Record ---
Author Organization [facility] Address [address] [place] [address] Care Team Providers Care Dermatologist Managing Partner Name Role Phone Sp Almanza Primary Care Provider Alfred Carr Unavailable [phone] Allergies Allergen (clinical drug ingredient) Drug/Non Drug [...] capsule Orally Onc e a day at night; Duration: 30 day(s) 01/06/2019 Not-T aking Immunizations Vaccine Route Administration Date Status Comme [...] W/U Status Risk Notes Problem Plantar wart (80180238) Plantar wart (B07.0) Active confirmed Problem Neuropathy (906129965) Neuropathy (G62.9) Active confirmed Problem Neuropathy of both feet (G57.93) Active confirmed Plan Of Treatment No Information Insurance Providers Payer Name Payer Address Payer Phone Subscriber Number Group Number Insured Name Patient Relationship to Insured Coverage Start Date Coverage End Date Medicare National Govt Svcs Inc [address] [place] [address] [id number] Alisha Parada Self - patient is the insured [employer] [address] [place] [address] [phone] [id number] Alisha Parada Self - patient is the insured Medical (General) History Medical History History ICD Code Arthritis asthma Back,Hip,and Knee pain CAD (Cholesterol) Numbness Sinus conditions Mumps Chicken pox Surgical History Surgery Date(Month/Year) melanoma 2015 overies removed hernia right side left wrist surgery left foot surgery Hospitalization History Reason Date(Month/Year) Urgent Care -L Wrist fratured 04/04/20
== END 2025-01-08 15:24 | disposition home or self-care (01) ==
LOC: HO.HMGAL 15:20
PROVIDERS: PCP Internal Medicine; Visit Provider Registered Nurse Emergency
DX: J30.89 Other allergic rhinitis (principal)
CPT/HCPCS: 95117; 95165

== ENCOUNTER 2025-01-15 13:04 | Outpatient (AMB) | payer MEDICARE, SELFPAY ==
--- OUTSIDE RECORDS SUMMARY | 2025-01-15 14:23 | XMS_ITS | Patient Health Record ---
Author Organization [facility] Address [address] [place] [address] Care Team Providers Care Road Consultant Name Role Phone Sp Almanza Primary Care Provider Alfred Carr Unavailable [phone] Allergies Allergen (clinical drug ingredient) Drug/Non Drug [...] W/U Status Risk Notes Problem Plantar wart (41972680) Plantar wart (B07.0) Active confirmed Problem Neuropathy (969640142) Neuropathy (G62.9) Active confirmed Problem Neuropathy of both feet (G57.93) Active confirmed Plan Of Treatment No Information Insurance Providers Payer Name Payer Address Payer Phone Subscriber Number Group Number Insured Name Patient Relationship to Insured Coverage Start Date Coverage End Date Medicare National Govt Svcs Inc [address] [place] [address] [id number] Alisha Parada Self - patient is the insured [employer] [address] [place] [address] [phone] [id number] Alisha Parada Self - patient is the insured Medical (General) History Medical History History ICD Code Arthritis asthma Back,Hip,and Knee pain CAD (Cholesterol) Numbness Sinus conditions Mumps Chicken pox Surgical History Surgery Date(Month/Year) melanoma 2015 overies removed hernia right side left wrist surgery left foot surgery Hospitalization History Reason Date(Month/Year) Urgent Care -L Wrist fratured 04/04/20
== END 2025-01-16 12:00 | disposition home or self-care (01) ==
LOC: HO.HMGAL 13:04
PROVIDERS: PCP Internal Medicine; Visit Provider Registered Nurse Emergency
DX: J30.89 Other allergic rhinitis (principal)
CPT/HCPCS: 95117; 95165

== ENCOUNTER 2025-01-24 08:01 | Outpatient (AMB) | payer MEDICARE, SELFPAY | END 2025-01-24 08:15 | disposition home or self-care (01) | LOC: HO.HMGAL 08:01 | PROVIDERS: PCP Internal Medicine; Visit Provider Registered Nurse Emergency | DX: J30.89 Other allergic rhinitis (principal) | CPT/HCPCS: 95117; 95165 ==

== ENCOUNTER 2025-01-29 08:04 | Outpatient (AMB) | payer MEDICARE, SELFPAY ==
--- OUTSIDE RECORDS SUMMARY | 2025-01-29 08:37 | XMS_ITS | Patient Health Record ---
[facility] Address [address] [place] [address] Care Team Providers Care Assistant Real Estate Manager Name Role Phone Sp Almanza Primary Care Provider Alfred Carr Unavailable [phone] Allergies Allergen (clinical drug ingredient) Drug/Non Drug [...] W/U Status Risk Notes Problem Plantar wart (73636728) Plantar wart (B07.0) Active confirmed Problem Neuropathy (132182860) Neuropathy (G62.9) Active confirmed Problem Neuropathy of both feet (G57.93) Active confirmed Plan Of Treatment No Information Insurance Providers Payer Name Payer Address Payer Phone Subscriber Number Group Number Insured Name Patient Relationship to Insured Coverage Start Date Coverage End Date Medicare National Govt Svcs Inc [address] [place] [address] [id number] Alisha Parada Self - patient is the insured [employer] [address] [place] [address] [id number] Alisha Parada Self - patient is the insured Medical (General) History Medical History History ICD Code Arthritis asthma Back,Hip,and Knee pain CAD (Cholesterol) Numbness Sinus conditions Mumps Chicken pox Surgical History Surgery Date(Month/Year) melanoma 2015 overies removed hernia right side left wrist surgery left foot surgery Hospitalization History Reason Date(Month/Year) Urgent Care -L Wrist fratured 04/04/20
== END 2025-01-29 08:07 | disposition home or self-care (01) ==
LOC: HO.HMGAL 08:04
PROVIDERS: PCP Internal Medicine; Visit Provider Registered Nurse Emergency
DX: J30.89 Other allergic rhinitis (principal)
CPT/HCPCS: 95117; 95165

== ENCOUNTER 2025-02-05 08:39 | Outpatient (AMB) | payer MEDICARE, SELFPAY ==
--- OUTSIDE RECORDS SUMMARY | 2025-02-05 09:54 | XMS_ITS | Patient Health Record ---
[facility] Address [address] [place] [address] Care Team Providers Care Director Data Processing Name Role Phone Sp Almanza Primary Care Provider Alfred Carr Unavailable [phone] Allergies Allergen (clinical drug ingredient) Drug/Non Drug [...] W/U Status Risk Notes Problem Plantar wart (81976872) Plantar wart (B07.0) Active confirmed Problem Neuropathy (597434268) Neuropathy (G62.9) Active confirmed Problem Neuropathy of both feet (G57.93) Active confirmed Plan Of Treatment No Information Insurance Providers Payer Name Payer Address Payer Phone Subscriber Number Group Number Insured Name Patient Relationship to Insured Coverage Start Date Coverage End Date Medicare National Govt Svcs Inc [address] [place] [address] [id number] Alisha Parada Self - patient is the insured [employer] [address] [place] [address] [id number] Alisha Parada Self - patient is the insured Medical (General) History Medical History History ICD Code Arthritis asthma Back,Hip,and Knee pain CAD (Cholesterol) Numbness Sinus conditions Mumps Chicken pox Surgical History Surgery Date(Month/Year) melanoma 2015 overies removed hernia right side left wrist surgery left foot surgery Hospitalization History Reason Date(Month/Year) Urgent Care -L Wrist fratured 04/04/20
== END 2025-02-05 08:42 | disposition home or self-care (01) ==
LOC: HO.HMGAL 08:39
PROVIDERS: PCP Internal Medicine; Visit Provider Registered Nurse Emergency
DX: J30.89 Other allergic rhinitis (principal)
CPT/HCPCS: 95117; 95165

== ENCOUNTER 2025-02-12 08:13 | Outpatient (AMB) | payer MEDICARE, SELFPAY ==
--- OUTSIDE RECORDS SUMMARY | 2025-02-12 09:09 | XMS_ITS | Patient Health Record ---
[facility] Address [address] [place] [address] Care Team Providers Care Radiology Interventional Physician Name Role Phone Sp Almanza Primary Care Provider Alfred Carr Unavailable [phone] Allergies Allergen (clinical drug ingredient) Drug/Non Drug [...] W/U Status Risk Notes Problem Plantar wart (43523265) Plantar wart (B07.0) Active confirmed Problem Neuropathy (526803743) Neuropathy (G62.9) Active confirmed Problem Neuropathy of both feet (G57.93) Active confirmed Plan Of Treatment No Information Insurance Providers Payer Name Payer Address Payer Phone Subscriber Number Group Number Insured Name Patient Relationship to Insured Coverage Start Date Coverage End Date Medicare National Govt Svcs Inc [address] [place] [address] [phone] [id number] Alisha Parada Self - patient is the insured [employer] [address] [place] [address] [id number] Alisha Parada Self - patient is the insured Medical (General) History Medical History History ICD Code Arthritis asthma Back,Hip,and Knee pain CAD (Cholesterol) Numbness Sinus conditions Mumps Chicken pox Surgical History Surgery Date(Month/Year) melanoma 2015 overies removed hernia right side left wrist surgery left foot surgery Hospitalization History Reason Date(Month/Year) Urgent Care -L Wrist fratured 04/04/20
== END 2025-02-12 08:14 | disposition home or self-care (01) ==
LOC: HO.HMGAL 08:13
PROVIDERS: PCP Internal Medicine; Visit Provider Registered Nurse Emergency
DX: J30.89 Other allergic rhinitis (principal)
CPT/HCPCS: 95117; 95165

== ENCOUNTER 2025-02-26 08:29 | Outpatient (AMB) | payer MEDICARE, SELFPAY ==
--- OUTSIDE RECORDS SUMMARY | 2025-02-26 09:01 | XMS_ITS | Patient Health Record ---
Author Organization [facility] Address [address] [place] [address] Care Team Providers Care Washtub Worker Name Role Phone Sp Almanza Primary Care Provider Alfred Olivo Unavailable [phone] Allergies Allergen (clinical drug ingredient) Drug/Non Drug [...] W/U Status Risk Notes Problem Plantar wart (32463322) Plantar wart (B07.0) Active confirmed Problem Neuropathy (844413278) Neuropathy (G62.9) Active confirmed Problem Neuropathy of both feet (G57.93) Active confirmed Plan Of Treatment No Information Insurance Providers Payer Name Payer Address Payer Phone Subscriber Number Group Number Insured Name Patient Relationship to Insured Coverage Start Date Coverage End Date Medicare National Govt Svcs Inc [address] [place] [address] [id number] Alisha Parada Self - patient is the insured [employer] [address] [place] [address] [phone] [id number] Alisha Parada Self - patient is the insured Medical (General) History Medical History History ICD Code Arthritis asthma Back,Hip,and Knee pain CAD (Cholesterol) Numbness Sinus conditions Mumps Chicken pox Surgical History Surgery Date(Month/Year) melanoma 2015 overies removed hernia right side left wrist surgery left foot surgery Hospitalization History Reason Date(Month/Year) Urgent Care -L Wrist fratured 04/04/20
== END 2025-02-26 09:16 | disposition home or self-care (01) ==
LOC: HO.HMGAL 08:29
PROVIDERS: PCP Internal Medicine; Visit Provider Registered Nurse Emergency
DX: J30.89 Other allergic rhinitis (principal)
CPT/HCPCS: 95117; 95165

== ENCOUNTER 2025-03-07 11:47 | Outpatient (AMB) | payer MEDICARE, SELFPAY | END 2025-03-07 11:52 | disposition home or self-care (01) | LOC: HO.HMGAL 11:47 | PROVIDERS: PCP Internal Medicine; Visit Provider Registered Nurse Emergency | DX: J30.89 Other allergic rhinitis (principal) | CPT/HCPCS: 95117; 95165 ==

== ENCOUNTER 2025-03-12 08:35 | Outpatient (AMB) | payer MEDICARE, SELFPAY | END 2025-03-12 08:36 | disposition home or self-care (01) | LOC: HO.HMGAL 08:35 | PROVIDERS: PCP Internal Medicine; Visit Provider Registered Nurse Emergency | DX: J30.89 Other allergic rhinitis (principal) | CPT/HCPCS: 95117; 95165 ==

== ENCOUNTER 2025-03-19 08:44 | Outpatient (AMB) | payer MEDICARE, SELFPAY ==
--- OUTSIDE RECORDS SUMMARY | 2025-03-19 09:16 | XMS_ITS | Patient Health Record ---
Author Organization [facility] Address [address] [facility] [place] [address] Care Team Providers Care Ticket Machine Operator Name Role Phone Sp Almanza Primary Care Provider Alfred Olivo Unavailable [phone] Allergies Allergen (clinical drug ingredient) Drug/Non Drug [...] W/U Status Risk Notes Problem Plantar wart (82187230) Plantar wart (B07.0) Active confirmed Problem Neuropathy (734104385) Neuropathy (G62.9) Active confirmed Problem Neuropathy of both feet (G57.93) Active confirmed Plan Of Treatment No Information Insurance Providers Payer Name Payer Address Payer Phone Subscriber Number Group Number Insured Name Patient Relationship to Insured Coverage Start Date Coverage End Date Medicare National Govt Svcs Inc [address] [place] [address] [id number] Alisha Parada Self - patient is the insured [employer] [address] [place] [address] [id number] Alisha Parada Self - patient is the insured Medical (General) History Medical History History ICD Code Arthritis asthma Back,Hip,and Knee pain CAD (Cholesterol) Numbness Sinus conditions Mumps Chicken pox Surgical History Surgery Date(Month/Year) melanoma 2015 overies removed hernia right side left wrist surgery left foot surgery Hospitalization History Reason Date(Month/Year) Urgent Care -L Wrist fratured 04/04/20
== END 2025-03-19 08:45 | disposition home or self-care (01) ==
LOC: HO.HMGAL 08:44
PROVIDERS: PCP Internal Medicine; Visit Provider Registered Nurse Emergency
DX: J30.89 Other allergic rhinitis (principal)
CPT/HCPCS: 95117; 95165

== ENCOUNTER 2025-03-21 11:55 | Outpatient (AMB) | payer MEDICARE, SELFPAY ==
--- NOTE | 2025-03-21 12:09 | AM.OFFVISNUR ---
Intake Visit Reasons: flu shot Allergies Penicillins (PENICILLINS) Allergy (Unknown, Verified 10/04/24 11:24) RASH,HIVES,SWELLING latex Allergy (Verified 10/04/24 11:24) Itching Office Procedures Flu Questionnaire Does the patient have a severe egg allergy?: No Does the patient have severe life threatening allergies?: No Does the patient have a fever or illness today?: No Has the patient ever had Guillain-Huxley Syndrome?: No Has the patient ever had any past reaction to a flu shot?: No Immunizations Fluarix [id number] (PF) 45 mcg (15 mcg x 3)/0.5 mL IM syringe Performing Provider: Sp Almanza MD [facility] Administered by: Samantha Trevino LPN on 03/21/25 12:09 Dose Route Admin Location Dispensed Lot Number Expiration Date NDC Cripple Worker 0.5 mL IM Left Deltoid 0.5 mL [id number] 11/20/25 [id number] [facility] Given Date VIS Provided VIS Publication Date 03/21/25 Single Vaccine 24 Eligibility Eligibility Date Funding Source Not [facility] Eligible 03/21/25 Private Assessment & Plan Assessment & Plan Orders: Orders Influenza [id number] Immunization Today Z23 - Encounter for immunization Coding
--- OUTSIDE RECORDS SUMMARY | 2025-03-21 15:21 | XMS_ITS | Patient Health Record ---
Author [facility] Address [address] [facility] [place] [address] Care Team Providers Care Slip Cover Cutter Name Role Phone Sp Almanza Primary Care Provider Alfred Olivo Unavailable [phone] Allergies Allergen (clinical drug ingredient) Drug/Non Drug [...] W/U Status Risk Notes Problem Plantar wart (72352027) Plantar wart (B07.0) Active confirmed Problem Neuropathy (351818236) Neuropathy (G62.9) Active confirmed Problem Neuropathy of both feet (G57.93) Active confirmed Plan Of Treatment No Information Insurance Providers Payer Name Payer Address Payer Phone Subscriber Number Group Number Insured Name Patient Relationship to Insured Coverage Start Date Coverage End Date Medicare National Govt Svcs Inc [address] [place] [address] [id number] Alisha Parada Self - patient is the insured [employer] [address] [place] [address] [id number] Alisha Parada Self - patient is the insured Medical (General) History Medical History History ICD Code Arthritis asthma Back,Hip,and Knee pain CAD (Cholesterol) Numbness Sinus conditions Mumps Chicken pox Surgical History Surgery Date(Month/Year) melanoma 2015 overies removed hernia right side left wrist surgery left foot surgery Hospitalization History Reason Date(Month/Year) Urgent Care -L Wrist fratured 04/04/20
== END 2025-03-21 12:10 | disposition home or self-care (01) ==
LOC: HO.HMCH 11:56
PROVIDERS: PCP Internal Medicine; Visit Provider Internal Medicine
DX: Z23 Encounter for immunization (principal)

== ENCOUNTER → 2025-03-21 11:55 | Outpatient (BNVA) | payer MEDICARE, SELFPAY | PROVIDERS: PCP Internal Medicine; Visit Provider Internal Medicine | DX: Z23 Encounter for immunization (principal) | CPT/HCPCS: 90471; 90656 ==

== ENCOUNTER 2025-03-26 08:38 | Outpatient (AMB) | payer MEDICARE, SELFPAY ==
--- OUTSIDE RECORDS SUMMARY | 2025-03-26 09:03 | XMS_ITS | Patient Health Record ---
Author Organization [facility] Address [address] [facility] [place] [address] Care Team Providers Care Underwear Finisher Name Role Phone Sp Almanza Primary Care Provider Alfred Olivo Unavailable [phone] Allergies Allergen (clinical drug ingredient) Drug/Non Drug [...] W/U Status Risk Notes Problem Plantar wart (73151440) Plantar wart (B07.0) Active confirmed Problem Neuropathy (998008359) Neuropathy (G62.9) Active confirmed Problem Neuropathy of both feet (G57.93) Active confirmed Plan Of Treatment No Information Insurance Providers Payer Name Payer Address Payer Phone Subscriber Number Group Number Insured Name Patient Relationship to Insured Coverage Start Date Coverage End Date Medicare National Govt Svcs Inc [address] [place] [address] [id number] Alisha Parada Self - patient is the insured [employer] [address] [place] [address] [phone] [id number] Alisha Parada Self - patient is the insured Medical (General) History Medical History History ICD Code Arthritis asthma Back,Hip,and Knee pain CAD (Cholesterol) Numbness Sinus conditions Mumps Chicken pox Surgical History Surgery Date(Month/Year) melanoma 2015 overies removed hernia right side left wrist surgery left foot surgery Hospitalization History Reason Date(Month/Year) Urgent Care -L Wrist fratured 04/04/20
== END 2025-03-26 08:39 | disposition home or self-care (01) ==
LOC: HO.HMGAL 08:38
PROVIDERS: PCP Internal Medicine; Visit Provider Registered Nurse Emergency
DX: J30.89 Other allergic rhinitis (principal)
CPT/HCPCS: 95117; 95165

== ENCOUNTER 2025-04-02 08:17 | Outpatient (AMB) | payer MEDICARE, SELFPAY ==
--- OUTSIDE RECORDS SUMMARY | 2025-04-02 08:40 | XMS_ITS | Patient Health Record ---
[facility] Address [address] [place] [address] Care Team Providers Care Throat Cutter Name Role Phone Sp Almanza Primary Care Provider Alfred Olivo Unavailable [phone] Allergies Allergen (clinical drug ingredient) Drug/Non Drug [...] W/U Status Risk Notes Problem Plantar wart (93218912) Plantar wart (B07.0) Active confirmed Problem Neuropathy (112381632) Neuropathy (G62.9) Active confirmed Problem Neuropathy of both feet (G57.93) Active confirmed Plan Of Treatment No Information Insurance Providers Payer Name Payer Address Payer Phone Subscriber Number Group Number Insured Name Patient Relationship to Insured Coverage Start Date Coverage End Date Medicare National Govt Svcs Inc [address] [place] [address] [id number] Alisha Parada Self - patient is the insured [employer] [address] [place] [address] [id number] Alisha Parada Self - patient is the insured Medical (General) History Medical History History ICD Code Arthritis asthma Back,Hip,and Knee pain CAD (Cholesterol) Numbness Sinus conditions Mumps Chicken pox Surgical History Surgery Date(Month/Year) melanoma 2015 overies removed hernia right side left wrist surgery left foot surgery Hospitalization History Reason Date(Month/Year) Urgent Care -L Wrist fratured 04/04/20
== END 2025-04-02 08:21 | disposition home or self-care (01) ==
LOC: HO.HMGAL 08:17
PROVIDERS: PCP Internal Medicine; Visit Provider Registered Nurse Emergency
DX: J30.89 Other allergic rhinitis (principal)
CPT/HCPCS: 95117; 95165

== ENCOUNTER 2025-04-04 06:57 | Outpatient (REF) | payer MEDICARE, SELFPAY ==
--- OUTSIDE RECORDS SUMMARY | 2025-04-04 06:59 | XMS_ITS | Patient Health Record ---
Author [facility] Address [address] [facility] [place] [address] Care Team Providers Care Econometrics Professor Name Role Phone Sp Almanza Primary Care Provider Alfred Olivo Unavailable [phone] Allergies Allergen (clinical drug ingredient) Drug/Non Drug [...] W/U Status Risk Notes Problem Plantar wart (91948907) Plantar wart (B07.0) Active confirmed Problem Neuropathy (991361407) Neuropathy (G62.9) Active confirmed Problem Neuropathy of both feet (G57.93) Active confirmed Plan Of Treatment No Information Insurance Providers Payer Name Payer Address Payer Phone Subscriber Number Group Number Insured Name Patient Relationship to Insured Coverage Start Date Coverage End Date Medicare National Govt Svcs Inc [address] [place] [address] [id number] Alisha Parada Self - patient is the insured [employer] [address] [place] [address] [id number] Alisha Parada Self - patient is the insured Medical (General) History Medical History History ICD Code Arthritis asthma Back,Hip,and Knee pain CAD (Cholesterol) Numbness Sinus conditions Mumps Chicken pox Surgical History Surgery Date(Month/Year) melanoma 2015 overies removed hernia right side left wrist surgery left foot surgery Hospitalization History Reason Date(Month/Year) Urgent Care -L Wrist fratured 04/04/20
[2025-04-04 10:44] LABS: MANUAL DIFF FLAG NO
[2025-04-04 11:03] LABS: Hematocrit 44.8 % (37.0-47.0); Hemoglobin 14.7 g/dl (12.0-16.0); Imm Gran Abs Auto 0.02 X10*3/uL (0.00-0.03); Imm Gran Pct Auto 0.3 % (0.0-0.4); Lymphocytes Absolute Auto 2.4 X10*3/uL (1.2-4.9); Mean Corpuscular HGB Conc 32.8 g/dl (31.0-35.0); Mean Corpuscular Hemoglobin 30.2 pg (27.0-33.0); Mean Corpuscular Volume 92.2 fL (80.0-98.0); NRBC Abs Auto 0.000 X10*3/uL (0.0-0.012); NRBC Pct Auto 0.0 /100WBC (0.0-0.2); Platelet Count 185 X10*3/uL (160-400); Red Blood Count 4.86 X10*6/uL (4.20-5.50); White Blood Count 7.0 X10*3/uL (4.8-10.8)
[2025-04-04 11:27] LABS: Appearance Urine Clear; Glucose Urine UA Negative (Negative); PH 5.5 (5.0-9.0); Specific Gravity - Urine 1.025 (1.005-1.025); UMIC TRIGGER UACC YES
[2025-04-04 11:32] LABS: UACC Culture Trigger YES
[2025-04-04 11:47] LABS: Alanine Aminotransferase 18 U/L (0-31); Albumin Level 4.4 g/dL (3.5-5.0); Alkaline Phosphatase 89 U/L (39-117); Anion Gap 12 (12-20); Aspartate Amino Transferase 20 U/L (5-31); Blood Urea Nitrogen 23 mg/dL (9-16); Calcium 9.2 mg/dL (8.4-10.2); Carbon Dioxide 28 mmol/L (22-29); Chloride 103 mmol/L (96-108); Cholesterol 172 mg/dL (<200); Estimated Glomerular Filt Rate > 60; HDL Cholesterol 62 mg/dL (>40); Potassium 4.3 mmol/L (3.3-5.1); Sodium 139 mmol/L (135-145); Total Protein 7.1 g/dL (6.5-8.0); Triglycerides 182 mg/dL (<150)
[2025-04-04 11:48] LABS: Free T4 (Free Thyroxine) 0.85 ng/dL (0.71-1.85); Thyroid Stimulating Hormone 5.70 uIU/mL (0.32-4.0)
[2025-04-04 12:11] LABS: Folate 12.0 ng/mL (> or = 4.0); Vitamin B12 594 pg/mL (200-900)
== END 2025-04-04 06:58 | disposition home or self-care (01) ==
LOC: HO.HMGCLDS 06:57
PROVIDERS: PCP Internal Medicine; Visit Provider Internal Medicine
DX: R73.03 Prediabetes (principal); R73.02 Impaired glucose tolerance (oral); E78.00 Pure hypercholesterolemia, unspecified; M85.80 Other specified disorders of bone density and structure, unspecified site; E66.9 Obesity, unspecified; E03.8 Other specified hypothyroidism; Z91.09 Other allergy status, other than to drugs and biological substances; R79.89 Other specified abnormal findings of blood chemistry
CPT/HCPCS: 36415; 80053; 80061; 81001; 81003; 82306; 82607; 82746; 83036; 84439; 84443; 85025; 87086; 96127; 99212

== ENCOUNTER 2025-04-04 11:03 | Outpatient (AMB) | payer MEDICARE, SELFPAY ==
[2025-04-04 11:09] VITALS: BP 140/89; PULSE 86; TEMP 36.3; O2SAT 96; BMI 31.9
--- NOTE | 2025-04-04 11:09 | MHC.PC.OV ---
Vital Signs 04/04/25 11:09 Height 5 ft 4 in Weight 186 lb 2 oz BMI 31.9 BP 140/89 H Blood Pressure Location Lt brachial Position Sitting Pulse 86 Pulse Source Pulse Oximeter Temp 97.3 F Temp Source Temporal Artery Scan Pulse Oximetry (%) 96 Oxygen Delivery Method Room Air Intake Visit Reasons: hypercholesterol Allergies Penicillins (PENICILLINS) Allergy (Unknown, Verified 04/04/25 11:43) RASH,HIVES,SWELLING latex Allergy (Verified 04/04/25 11:43) Itching Medication List - Last Reconciled 04/04/25 by Sp Almanza MD albuterol sulfate 90 mcg/actuation 2 puffs inhalation Q4-6H cholecalciferol (vitamin D3) 25 mcg PO DAILY cyanocobalamin (vitamin B-12) (Vitamin B-12) 500 mcg PO DAILY loratadine 10 mg PO DAILY magnesium oxide 400 mg PO DAILY simvastatin 20 mg PO DAILY Tobacco use date assessed: 10/04/24 Fall risk assessment: No Falls in past year Last assessed Fall Risk: 04/04/25 Dental Screening Dental Screen Date: 10/04/24 Did you have a dental visit in the last 12 months?: Yes Did you have a dental problem in the last 6 months where you did not have access to dental care?: No Was dental information given to patient?: Patient has dentist [facility] Medical History Medicare annual wellness visit, subsequent COVID-19 virus infection Hypertriglyceridemia Crush accident Elevated LFTs Skin tag Mild sleep apnea Congestion of both ears COVID-19 History of melanoma Osteopenia Lumbar degenerative disc disease Peripheral neuropathy Asthma Obesity (BMI 30-39.9) Hypercholesteremia Surgical History History of melanoma excision (~2014) History of bilateral oophorectomy Family History Father Lung cancer Mother Lung cancer Social History Housing: House Alcohol intake: current Alcohol intake frequency: holidays/special occasions only Comment: stuffy with alcohol- rarely Patient Tobacco Use Status: Former Tobacco user Tobacco use type: Cigarette Years Smoked: 2001 smoked for 10 years e-Cigarette/Vaping Use: Never Used Second Hand Smoke Exposure: Yes service: No Current occupational status: retired 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 1. Little interest or pleasure in doing things: not at all 2. Feeling down, depressed, or hopeless: not at all 3. Trouble falling or staying asleep, or sleeping too much: not at all 4. Feeling tired or having little energy: not at all 5. Poor appetite or overeating: not at all 6. Feeling bad about yourself - or that you are a failure or have let yourself or your family down: not at all 7. Trouble concentrating on things, such as reading the newspaper or watching television: not at all 8. Moving or speaking so slowly that other people could have noticed. Or the opposite - being so fidgety or restless that you have been moving around a lot more than usual: not at all 9. Thoughts that you would be better off or of hurting yourself in some way: not at all Total score: 0 Depression Screening Interpretation: Negative Depression Screening Done: Yes 20045 - PHQ-9 Billing: Yes Source: Developed by Drs. Benjamín Ramos, Alem Calabrese, Anthony Nicolas and colleagues, with an educational [place] from [employer]. Thrive Questionnaire Date Thrive assessed: 06/20/24 I am a: Patient What is your living situation today?: I have a steady place to live Within the past 12 months, did the food you bought not last and you didn't have the money to get more?: Never true Within the past 12 months, did you worry whether your food would run out before you got money to buy more?: Never true Do you have trouble paying for medicines?: No Do you have trouble getting transportation to medical appointments?: No Do you have trouble paying your heating and electricity bill?: No Do you have trouble taking care of your child, family member or friend?: No Do you have trouble with day-to-day activities such as bathing, preparing meals, shopping, managing finances, etc.?: No Are you currently unemployed and looking for a job?: No Are you interested in more education?: No Please select the resources that you would like help with: None Currently or been in a relationship where the following occur: No concerns reported THRIVE Score: 0 AUDIT C Alcohol Use Questionnaire (AUDIT-C) 1. How often do you have a drink containing alcohol?: 2-4 times a month 2. How many drinks containing alcohol do you have on a typical day when you are drinking?: 1 or 2 Total Score: 2 JULIA-7 AMB Questionnaire JULIA-7 Date JULIA - 7 assessed: 06/27/24 Feeling nervous, anxious, or on edge: 0 = Not at all Not being able to stop or control worryin = Not at all Worrying too much about different things: 0 = Not at all Trouble relaxin = Not at all Being so restless that it is hard to sit still: 0 = Not at all Becoming easily annoyed or irritable: 0 = Not at all Feeling afraid as if something awful might happen: 0 = Not at all Total JULIA-7 score (0-4 normal; 5-9 mild; 10-14 moderate; 15-21 severe): 0 Source: Developed by Drs. Benjamín Ramos, Alem Calabrese, Anthony Nicolas and colleagues, with an educational [place] from [employer]. Physical exam (Primary Care) Vital Signs: Last Vital Signs Temp 97.3 F 04/04/25 11:09 Pulse 86 04/04/25 11:09 BP 140/89 H 04/04/25 11:09 Pulse Ox 96 04/04/25 11:09 Oxygen Delivery Method Room Air 04/04/25 11:09 BMI result Body Mass Index 31.9 Tobacco/Smoking Status: Tobacco use Status Tobacco use date assessed 10/04/24 04/04/25 11:10 Patient Tobacco Use Status Former Tobacco user 04/04/25 11:10 Tobacco use type Cigarette 04/04/25 11:10 e-Cigarette/Vaping Use Never Used 04/04/25 11:10 PHQ-9: PHQ-9 Score PHQ-9: Total score 0 04/04/25 15:00 Depression Screening Interpretation: Negative Thrive Assessment: Date of Thrive Assessment Date Thrive assessed 06/20/24 04/04/25 11:10 Currently or been in a relationship where the following occur: No concerns reported Const General: alert; No acute distress Eyes Conjunctivae: conjunctivae normal Resp Auscultation: clear to auscultation bilaterally Cardio Rate: regular rate Rhythm: regular rhythm GI Inspection: Yes normal to inspection Extrem General: Yes normal to inspection and No edema Coding Level of Care Code Est Pt Level 4 (32504) Complex EM visit Add On G2211 Diagnoses Impaired glucose tolerance R73.02 Hypercholesteremia E78.00 Allergic reaction T78.40XA Osteopenia M85.80 Obesity (BMI 30-39.9) E66.9 Additional Codes PHQ-9 - 42324 - PHQ-9 Billing: Yes ([id number]) Assessment & Plan Assessment & Plan (1) Impaired glucose tolerance: Code(s): R73.02 - Impaired glucose tolerance (oral) Category: Medical Plan: Decrease the amount of carbohydrate intake, pasta, bread, rice and potatoes are all sugar and that is aside from all the sweet stuff, remember that fruits are good but they are Sweet also. (2) Hypercholesteremia: Code(s): E78.00 - Pure hypercholesterolemia, unspecified Category: Medical Plan: Avoid fried foods, chicken skin, eggs, butter margarine, pastries and meat. Be it pork or beef they have a lot of cholesterol LDL goal of less than 130 and triglyceride of less than 150 on simvastatin (3) Allergic reaction: Comment: decline epipen (03/2022) Code(s): T78.40XA - Allergy, unspecified, initial encounter Category: Medical Plan: Patient on desensitization injection therapy (4) Osteopenia: Comment: Bone density July 2024 Code(s): M85.80 - Other specified disorders of bone density and structure, unspecified site Category: Medical Plan: Discussed about calcium and vitamin-D and keeping active (5) Obesity (BMI 30-39.9): Code(s): E66.9 - Obesity, unspecified Category: Medical Plan: Diet and exercise Plan History of Present Illness The patient is a 74-year-old obese female presenting for a follow-up visit. She has a history of impaired glucose tolerance, with recent lab work showing a fasting blood sugar of 120 and a rise in her hemoglobin A1c to 6.2% from previous values of 5.8-6.0%. She acknowledges a diet high in carbohydrates, including a lot of rice. The patient has a history of hypercholesterolemia and is on simvastatin. Her LDL is 74, and triglycerides have been trending down to 182, though they remain above the goal of 150. Past medical history is also significant for osteopenia, with her last bone density scan performed this year, and subclinical hypothyroidism, with her TSH recently increasing to 5.7 from 4.62. She follows with ophthalmology for non-visually significant cataracts and dry eye syndrome. Regarding musculoskeletal issues, the patient reports annoying pain in her groin area, particularly upon standing after prolonged sitting, without any history of falls associated with it. She also has right knee pain that began after a fall five months ago, which is exacerbated by direct pressure on the knee. She has a known history of arthritis confirmed on x-rays from last year. The patient receives weekly desensitization injections for allergies and takes loratadine. She experiences postnasal drip, causing her to clear her throat frequently, and notes coughing up phlegm after drinking milk. She has an inhaler which she uses infrequently, mainly for colds or significant physical exertion, with the last use being last winter. For health maintenance, her last colonoscopy was in 2015 and her mammogram is up to date. Health Maintenance The patient was advised to get the shingles vaccine, which comes in a two-shot series administered two to six months apart. She was encouraged to maintain calcium and vitamin D intake and stay active for her bone health. Social History - Diet: Reports a diet high in carbohydrates, such as rice, pasta, and bread. - Exercise: Patient's activity consists of yard work such as gardening and raking, but she does not engage in a consistent, regular exercise routine. Review of Systems - HEENT/Respiratory: Reports sinus problems, postnasal drip with constant throat clearing, and cough productive of phlegm after drinking milk. - Eyes: Reports history of cataracts (not visually significant) and dry eye syndrome. - Musculoskeletal: Reports pain in the groin area after sitting, described as annoying and a strain. - Musculoskeletal: Reports right knee pain since a fall 5 months ago, which is severe when pressure is applied to the knee. - Musculoskeletal: Reports a cracking sound in her leg at times. - Musculoskeletal: Denies that her leg gives way or that she is falling due to the pain. Physical Exam - Constitutional: Appears as a 74-year-old obese female. - Musculoskeletal: Palpation of the right knee revealed tenderness over the bursa. - Musculoskeletal: No tenderness was noted in other specified areas on palpation of the knee. Results - Complete Blood Count: Normal, with no anemia; white blood cell and platelet counts are within normal limits. - Comprehensive Metabolic Panel: Sodium, potassium, and kidney function are normal. - Liver Function Tests: Normal. - Fasting Blood Sugar: 120. - Hemoglobin A1c: 6.2%, increased from 6.0%. - Lipid Panel: Total cholesterol is 172, LDL is 74, and triglycerides are 182. - Vitamin D: Level is good. - Thyroid-Stimulating Hormone (TSH): 5.7, increased from 4.62. - Vitamin B12: Results are pending. Plan Patient was informed and verbally consented to the use of an ambient scribe for clinic note documentation during this visit. 1. Prediabetes The patient's fasting blood sugar has risen to 120 and her HbA1c is now 6.2%, indicating she is approaching a diagnosis of diabetes. Her diet, high in carbohydrates like rice, was identified as a contributing factor. The plan is to have the patient dramatically reduce her intake of carbohydrates and to start a consistent exercise regimen, such as walking, to help control her blood sugar. Labs will be rechecked in 3 months. 2. Hypercholesterolemia The patient's cholesterol panel shows improvement, with an LDL of 74, which is below the goal of 100 on simvastatin. Her triglycerides are trending down to 182 but remain above the goal of 150. The plan is to continue simvastatin, with no medication change for the triglycerides at this time, and reinforce lifestyle modifications. 3. Subclinical Hypothyroidism The patient's TSH has risen to 5.7, which is considered subclinical hypothyroidism and not yet severe enough to require medication. The plan is to retest her thyroid function in 3 months to monitor for further increases, at which point medication would be considered. 4. Musculoskeletal Pain For her groin pain, which is likely muscular or tendinous, physical therapy and exercises are recommended. The right knee pain is attributed to underlying arthritis, with pain resulting from iuma-ze-guau contact when pressure is applied to the patella. The patient was advised to avoid activities that cause this direct pressure. Discussion Notes I reviewed the patient's recent lab results with her, highlighting the significant increase in her blood sugar levels. I explained that her fasting glucose of 120 and HbA1c of 6.2% place her very close to a diagnosis of diabetes, and stressed the importance of preventing this progression. We discussed the need for major dietary changes, specifically reducing carbohydrates like rice, pasta, and bread, and implementing a consistent exercise routine. I informed her that while her cholesterol is improving, her thyroid level has risen slightly, reaching 5.7. I explained this is considered subclinical hypothyroidism and does not require medication at this time, but we will monitor it with a repeat test in three months. Regarding her groin pain, I suggested it is likely muscular and that physical therapy would be beneficial. For her right knee pain, I explained it stems from her arthritis and occurs when the floating kneecap bone makes contact with the underlying bone; I advised her to avoid putting pressure on it. Finally, we reviewed her preventative health status and I recommended she receive the shingles vaccine, which is a two-dose series. Patient Instructions - Your blood sugar is now in the prediabetes range, which is very close to becoming diabetes. - To help lower your blood sugar, you must significantly cut down on foods like rice, pasta, bread, potatoes, and sweets. - Start a regular exercise routine, like daily walks, to help your body use up the sugar you eat. - Continue taking your cholesterol medication, simvastatin. It is working well to lower your bad cholesterol. - Your thyroid level is slightly high. We will check it again with a blood test in 3 months. - For the pain in your groin, physical therapy and specific exercises may help. - Your right knee pain is from arthritis. Try to avoid leaning or putting pressure directly on your knee, as this can cause pain. - It is recommended that you get the shingles vaccine. This requires two shots, given 2 to 6 months apart. Orders: Orders Free T4 (Free Thyroxine) 3 Months R7. - Other specified abnormal findings of blood chemistry Comprehensive Met. Panel 3 Months R7 - Other specified abnormal findings of blood chemistry Hemoglobin A1c 3 Months R7. - Other specified abnormal findings of blood chemistry Thyroid Stimulating Hormone 3 Months R7. - Other specified abnormal findings of blood chemistry Lipid Panel 3 Months E78.00 - Pure hypercholesterolemia, unspecified, R7. - Other specified abnormal findings of blood chemistry Medications: New cyanocobalamin (vitamin B-12) (Vitamin B-12) 500 mcg PO DAILY 100 ea 0RF
== END 2025-04-04 12:08 | disposition home or self-care (01) ==
LOC: HO.HMCH 11:04
PROVIDERS: PCP Internal Medicine; Visit Provider Internal Medicine
DX: R73.02 Impaired glucose tolerance (oral) (principal); E78.00 Pure hypercholesterolemia, unspecified; E66.9 Obesity, unspecified; Z68.31 Body mass index [BMI] 31.0-31.9, adult; T78.40XA Allergy, unspecified, initial encounter; M85.80 Other specified disorders of bone density and structure, unspecified site

== ENCOUNTER 2025-04-09 08:56 | Outpatient (AMB) | payer MEDICARE, SELFPAY | END 2025-04-09 08:56 | disposition home or self-care (01) | LOC: HO.HMGAL 08:56 | PROVIDERS: PCP Internal Medicine; Visit Provider Registered Nurse Emergency | DX: J30.89 Other allergic rhinitis (principal) | CPT/HCPCS: 95117; 95165 ==

== ENCOUNTER 2025-04-16 08:57 | Outpatient (AMB) | payer MEDICARE, SELFPAY ==
--- OUTSIDE RECORDS SUMMARY | 2025-04-16 09:37 | XMS_ITS | Patient Health Record ---
[facility] Address [address] [place] [address] Care Team Providers Care Manager Internship Name Role Phone Sp Almanza Primary Care Provider Alfred Olivo Unavailable [phone] Allergies Allergen (clinical drug ingredient) Drug/Non Drug [...] W/U Status Risk Notes Problem Plantar wart ([id number]) Plantar wart (B07.0) Active confirmed Problem Neuropathy ([id number]) Neuropathy (G62.9) Active confirmed Problem Neuropathy of both feet (G57.93) Active confirmed Plan Of Treatment No Information Insurance Providers Payer Name Payer Address Payer Phone Subscriber Number Group Number Insured Name Patient Relationship to Insured Coverage Start Date Coverage End Date Medicare National Govt [employer] [address] [place] [address] [id number] Alisha Parada Self - patient is the insured [employer] [address] [place] [address] [id number] Alisha Parada Self - patient is the insured Medical (General) History Medical History History ICD Code Arthritis asthma Back,Hip,and Knee pain CAD (Cholesterol) Numbness Sinus conditions Mumps Chicken pox Surgical History Surgery Date(Month/Year) melanoma 2015 overies removed hernia right side left wrist surgery left foot surgery Hospitalization History Reason Date(Month/Year) Urgent Care -L Wrist fratured 04/04/20
== END 2025-04-16 09:02 | disposition home or self-care (01) ==
LOC: HO.HMGAL 08:57
PROVIDERS: PCP Internal Medicine; Visit Provider Registered Nurse Emergency
DX: J30.89 Other allergic rhinitis (principal)
CPT/HCPCS: 95117; 95165

== ENCOUNTER 2025-04-23 09:02 | Outpatient (AMB) | payer MEDICARE, SELFPAY | END 2025-04-23 09:02 | disposition home or self-care (01) | LOC: HO.HMGAL 09:02 | PROVIDERS: PCP Internal Medicine; Visit Provider Registered Nurse Emergency | DX: J30.89 Other allergic rhinitis (principal) | CPT/HCPCS: 95117; 95165 ==

== ENCOUNTER 2025-04-30 08:38 | Outpatient (AMB) | payer MEDICARE, SELFPAY | END 2025-04-30 08:44 | disposition home or self-care (01) | LOC: HO.HMGAL 08:38 | PROVIDERS: PCP Internal Medicine; Visit Provider Registered Nurse Emergency | DX: J30.89 Other allergic rhinitis (principal) | CPT/HCPCS: 95117; 95165 ==

== ENCOUNTER 2025-05-07 09:51 | Outpatient (AMB) | payer MEDICARE, SELFPAY | END 2025-05-07 09:52 | disposition home or self-care (01) | LOC: HO.HMGAL 09:51 | PROVIDERS: PCP Internal Medicine; Visit Provider Registered Nurse Emergency | DX: J30.89 Other allergic rhinitis (principal) | CPT/HCPCS: 95117; 95165 ==

== ENCOUNTER 2025-05-14 09:18 | Outpatient (AMB) | payer MEDICARE, SELFPAY ==
--- OUTSIDE RECORDS SUMMARY | 2025-05-14 10:21 | XMS_ITS | Patient Health Record ---
[facility] Address [address] [place] [address] Care Team Providers Care Fine Hairer Name Role Phone Sp Almanza Primary Care Provider Alfred Olivo Unavailable [phone] Allergies Allergen (clinical drug ingredient) Drug/Non Drug [...] W/U Status Risk Notes Problem Plantar wart ([id number]) Plantar wart (B07.0) Active confirmed Problem Neuropathy ([id number]) Neuropathy (G62.9) Active confirmed Problem Neuropathy of both feet (G57.93) Active confirmed Plan Of Treatment No Information Insurance Providers Payer Name Payer Address Payer Phone Subscriber Number Group Number Insured Name Patient Relationship to Insured Coverage Start Date Coverage End Date Medicare National Govt [employer] [address] [place] [address] [id number] Alisha Parada Self - patient is the insured [employer] [address] [place] [address] [id number] Alisha Parada Self - patient is the insured Medical (General) History Medical History History ICD Code Arthritis asthma Back,Hip,and Knee pain CAD (Cholesterol) Numbness Sinus conditions Mumps Chicken pox Surgical History Surgery Date(Month/Year) melanoma 2015 overies removed hernia right side left wrist surgery left foot surgery Hospitalization History Reason Date(Month/Year) Urgent Care -L Wrist fratured 04/04/20
== END 2025-05-14 09:19 | disposition home or self-care (01) ==
LOC: HO.HMGAL 09:18
PROVIDERS: PCP Internal Medicine; Visit Provider Registered Nurse Emergency
DX: J30.89 Other allergic rhinitis (principal)
CPT/HCPCS: 95117; 95165